=== PATIENT | male | born 1975 | race Caucasian/White ===

== ENCOUNTER 2016-09-16 15:45 | Emergency (ER) | payer SELFPAY ==
[~2016-09-16] VITALS: Ht 188 cm; Wt 90.0 kg
[~2016-09-16 15:45] MED LIST: HYDR-3533 PO; MMW SWISH-SPIT; PENI500T PO
[2016-09-16 15:47] VITALS: BP 133/86; PULSE 68; RESP 12; TEMP 98; O2SAT 97
[2016-09-16] MEDS ORDERED: LIDOCAINE HCL 1% 50 ML VIAL INFIL ONE (17:45)
--- NOTE | 2016-09-16 17:47 | PD ---
HPI Chief Complaint: Skin Problem Time Seen by Provider: 17:46 Travel History International Travel<30 days: No Contact w/Intl Traveler<30days: No Traveled to known affect area: No History of Present Illness HPI 40-year-old male presents to the emergency department for evaluation of left forearm abscess. Patient states that he thinks something bit him because he has a bump on his left forearm and a bump on his left hand. 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 States that the area on his forearm is gotten more red, painful and swollen. States that he tried to cut it open today himself but was unable to get anything out. He denies any fever, chills, nausea, vomiting, numbness or tingling, weakness, discharge or drainage from the site. Denies any IV drug use. No other complaints. PFSH Past Medical History Blood Disorders: No Cancer: No Cardiovascular Problems: Yes (VSD) Chest Pain: No Endocrine: No Genitourinary: No Immune Disorder: No Kidney Stones: No Musculoskeletal: Yes Neurologic: No Psychiatric: No Reproductive: No Respiratory: No Past Surgical History Other Surgery: No Social History Alcohol Use: No Tobacco Use: Yes (2 PKS A DAY) Substance Use: No Allergies-Medications (Allergen,Severity, Reaction): Coded Allergies: No Known Allergies (Verified , 09/16/16) Reported Meds & Prescriptions Reported Meds & Active Scripts Active Naproxen 500 Mg Tab 500 Mg PO BID 10 Days Keflex (Cephalexin) 500 Mg Cap 500 Mg PO Q6H 10 Days Bactrim DS (Sulfamethoxazole-Trimethoprim) 800-160 Mg Tab 1 Tab PO BID 10 Days Review of Systems Except as stated in HPI: all other systems reviewed are Neg Physical Exam Narrative GENERAL: Well-nourished and well-developed pleasant male patient in no acute distress who is nontoxic appearing. SKIN: Warm and dry. There is an erythematous painful lump to the left forearm approximately 5 x 5 cm that is fluctuant. There is a 1 x 1 cm lump to the dorsal left hand over first MCP with mild tenderness to palpation, no fluctuance. HEAD: Normocephalic and atraumatic. EYES: No injection, drainage, or hyphema noted. PERRLA. EOMI. ENT: No nasal drainage noted. Oropharynx is clear. NECK: Supple and the trachea is midline. CARDIOVASCULAR: Regular rate and rhythm. RESPIRATORY: Breath sounds are equal bilaterally with no accessory muscle use, wheezing, rhonchi, or crackles. MUSCULOSKELETAL: No obvious deformities, swelling, cyanosis, or ecchymosis is present throughout the upper and lower extremities. NEUROLOGICAL: Awake, alert, and oriented. Normal speech and gait. Cranial nerves are grossly intact. Data Data Last Documented VS Vital Signs Date Time Temp Pulse Resp B/P Pulse Ox O2 Delivery O2 Flow Rate FiO2 09/16/16 15:47 98.0 68 12 133/86 97 Orders Wound Culture And Gram Stain (09/16/16 17:45) Lidocaine 1% Inj (50 Ml) (Xylocaine 1% I (09/16/16 17:45) Tetanus/Diphtheria Tox Adult (Tetanus/Di (09/16/16 18:00) MDM Medical Decision Making Medical Screen Exam Complete: Yes Emergency Medical Condition: Yes Differential Diagnosis Abscess versus cyst versus insect bite Narrative Course 40-year-old male presents to the emergency department for evaluation of left forearm abscess. Patient is afebrile, vital signs are stable. I&D is performed , see procedure narrative for further details. Patient will be prescribed Bactrim and Keflex. Discussed proper wound care techniques and when to return to the emergency department. Patient verbalizes understanding and agreement with treatment plan. Procedures Procedure Narrative After the risks and benefits were discussed the following procedure was performed: INCISION AND DRAINAGE OF ABSCESS: The area was prepped and was sterilely draped. A subcutaneous wheal of 1 % Xylocaine with a total number 3 mL was used to anesthetize the area. The area was properly anesthetized. A number 11 scalpel was used to make a 1 -cm incision across the area of the abscess. Purulence was expelled. Cultures were obtained. The abscess was drained an irrigated with normal saline. Quarter inch iodoform packing was placed in the wound. Sterile dressing applied. Patient advised to have packing removed in two days. Diagnosis Primary Impression: Abscess of left forearm Patient Instructions: Abscess (ED), General Instructions Additional Instructions: Have packing removed in 2 days. Apply warm compresses to the area. Take medications as prescribed with food and a full glass of water. Follow-up with your Primary Care Physician. Return to the ED for any acute worsening of symptoms. Med/Other Pt SpecificInfo: Prescription(s) given Scripts Naproxen 500 Mg [id number] Mg PO BID 10 Days Ref 0 Prov:Ron Cerda MD 09/16/16 Cephalexin (Keflex)500 Mg [id number] Mg PO Q6H 10 Days Ref 0 Prov:Ron Cerda MD 09/16/16 Sulfamethoxazole-Trimethoprim (Bactrim DS)800-160 Mg Tab1 Tab PO BID 10 Days Ref 0 Prov:Ron Cerda MD 09/16/16 Disposition: 01 DISCHARGE HOME Condition: Stable Eleanor Jeter Sep 16, 2016 17:47
[2016-09-16] MEDS ORDERED: BACT800T5 PO (17:53)
[2016-09-16] MEDS ORDERED: NAPR500T PO (17:53)
[2016-09-16] MEDS ORDERED: CEPH-460 PO (17:53)
[2016-09-16] MEDS ORDERED: TETANUS/DIPHTHERIA TOXOID ADULT 0.5 ML VIAL IM ONE (18:00)
== END 2016-09-16 18:25 | disposition home or self-care (01) ==
LOC: NEPB 15:45
DX: L02.414 Cutaneous abscess of left upper limb (principal); Q21.0 Ventricular septal defect; F17.210 Nicotine dependence, cigarettes, uncomplicated; Z23 Encounter for immunization
CPT/HCPCS: 10061; 87070; 87205; 90471; 90714

== ENCOUNTER 2017-11-05 12:57 | Emergency (ER) | payer SELFPAY ==
[~2017-11-05 12:57] MED LIST changes: +BACT800T5 PO; +CEPH-460 PO; -HYDR-3533 PO; -MMW SWISH-SPIT; +NAPR500T2 PO; -PENI500T PO
[2017-11-05 13:09] VITALS: BP 120/71; PULSE 73; RESP 16; TEMP 98.2; O2SAT 98
[2017-11-05] MEDS ORDERED: LIDOCAINE 1%/EPINEPHrine 1:100,000 SOLN 20 ML VIAL INFIL ONE (16:00)
--- NOTE | 2017-11-05 16:00 | PD ---
HPI Chief Complaint: Skin Problem Time Seen by Provider: 15:49 Travel History International Travel<30 days: No Contact w/Intl Traveler<30days: No Traveled to known affect area: No History of Present Illness HPI Patient comes emergency department complaining of a painful lump on his left forearm that began 5 days ago. Patient reports it got progressively larger however yesterday he tried squeezing it and got some pus out that seemed to help some. Touching it makes it worse. Patient denies any fevers with this. Patient reports a distant history of IV drug use, but states he has not used in several years. Patient reports his tetanus shot is up-to-date. Patient denies anything like this in the past. Describes pain as a burning pressure-like pain without radiation. PFSH Past Medical History Blood Disorders: No Cancer: No Cardiovascular Problems: Yes (VSD) Chest Pain: No Endocrine: No Genitourinary: No Immune Disorder: No Kidney Stones: No Musculoskeletal: Yes Neurologic: No Psychiatric: No Reproductive: No Respiratory: No Past Surgical History Other Surgery: No Social History Alcohol Use: No Tobacco Use: Yes (2 PKS A DAY) Substance Use: No Allergies-Medications (Allergen,Severity, Reaction): Coded Allergies: No Known Allergies (Verified , 09/16/16) Reported Meds & Prescriptions Reported Meds & Active Scripts Active Keflex (Cephalexin) 500 Mg Cap 500 Mg PO Q8H Bactrim DS (Sulfamethoxazole-Trimethoprim) 800-160 Mg Tab 1 Tab PO BID Naproxen 500 Mg Tab 500 Mg PO BID 10 Days Keflex (Cephalexin) 500 Mg Cap 500 Mg PO Q6H 10 Days Bactrim DS (Sulfamethoxazole-Trimethoprim) 800-160 Mg Tab 1 Tab PO BID 10 Days Review of Systems Except as stated in HPI: all other systems reviewed are Neg Physical Exam Narrative GENERAL: Well-developed, well nourished, in no acute distress, and non-ill appearing. SKIN: Tender fluctuant skin abscess noted on left forearm. There is minimal surrounding erythematous. Is afebrile. There is no drainage. No crepitus. No streaking. HEAD: Atraumatic. Normocephalic. EYES: Pupils equal and round. EOMI. No scleral icterus. No injection or drainage. ENT: No nasal bleeding or discharge. Mucous membranes pink and moist. NECK: Trachea midline. Supple. No nuclear rigidity. RESPIRATORY: No accessory muscle use. No respiratory distress. MUSCULOSKELETAL: No obvious deformities. No clubbing. No cyanosis. No edema. Full range of motion. NEUROLOGICAL: Awake and alert. No obvious cranial nerve deficits. Motor grossly within normal limits. Normal speech. PSYCHIATRIC: Appropriate mood and affect; insight and judgment normal. Data Data Last Documented VS Vital Signs Date Time Temp Pulse Resp B/P (MAP) Pulse Ox O2 Delivery O2 Flow Rate FiO2 11/05/17 13:09 98.2 73 16 120/71 (87) 98 Orders Orders Wound Culture And Gram Stain (11/05/17 15:57) Lidocai-Epi 1%-1:100,000 Inj (Xylocaine- (11/05/17 16:00) Ed Discharge Order (11/05/17 16:16) Clindamycin Inj (Cleocin Inj) (11/05/17 16:30) MDM Medical Decision Making Medical Screen Exam Complete: Yes Emergency Medical Condition: Yes Differential Diagnosis Abscess, cellulitis, folliculitis, gangrene Narrative Course The patient has no evidence of significant cellulitis. There is no evidence of necrotizing fasciitis/ [place] at this time. The patient will be discharged on antibiotics. The patient was given signs and symptoms warnings for worsening infection, such as spreading of redness, increasing pain, and/or swelling, associated heat, or fever or feels worse, and instructed to return immediately if these signs or symptoms worsen. The patient is to return in 2 days for recheck. Sooner if worsens or as needed. The patient agrees with plan. Patient in no obvious distress upon re-evaluation. Patient was asked if they wanted to speak to my attending, which the patient did not wish to do at this time. Any questions/concerns in reference to patient diagnosis/condition discussed and clarified prior to patient's discharge. Reinforced sheer importance of close follow up with patient's primary physician or primary care clinic. Instructed patient to return to ED immediately, if symptoms return/ worsen. Patient showed understanding of above instructions. Further instructions and recommendations were detailed in discharge paperwork. Patient ambulated without difficulty out of ED at discharge. Procedures Procedure Narrative INCISION AND DRAINAGE OF ABSCESS: Verbal consent was obtained. The area was prepped. A subcutaneous wheal of 1% Xylocaine with epi with a total number 2 mL was used to anesthetize the area. The area was properly anesthetized. A number 11 scalpel was used to make a 1-cm incision across the area of the abscess. The abscess was drained and irrigated with normal saline. Quarter inch iodoform packing was placed in the wound. Sterile dressing applied by nurse. Patient tolerated procedure well. Patient advised to return here in 2 days to have packing removed and wound rechecked. Patient verbalized understanding. Diagnosis Primary Impression: Abscess of left forearm Referrals: [facility] Patient Instructions: Abscess (ED), Abscess Incision and Drainage (DC), General Instructions Additional Instructions: Follow-up with your primary care physician or return here in 2 days for recheck. Take all medication as prescribed. Apply warm compresses to affected area multiple times throughout the day to facilitate drainage. Return to the emergency department if symptoms get worse. Med/Other Pt SpecificInfo: Prescription(s) given Scripts Cephalexin (Keflex) 500 Mg Cap 500 MG PO Q8H for Infection, #30 CAP 0 Refills Prov: Saeed Mccray MD 11/05/17 Sulfamethoxazole-Trimethoprim (Bactrim DS) 800-160 Mg Tab 1 TAB PO BID for Infection, #20 TAB 0 Refills Prov: Saeed Mccray MD 11/05/17 Disposition: 01 DISCHARGE HOME Condition: Stable Reid Daugherty Nov 05, 2017 16:00
[2017-11-05] MEDS ORDERED: CEPH-460 PO (16:17)
[2017-11-05] MEDS ORDERED: BACT800T5 PO (16:17)
[2017-11-05] MEDS ORDERED: CLINDAMYCIN PHOS 600 MG/4 ML VIAL IM ONE (16:30)
== END 2017-11-05 17:18 | disposition home or self-care (01) ==
LOC: NEPK 12:57
DX: L02.414 Cutaneous abscess of left upper limb (principal); B95.62 Methicillin resistant Staphylococcus aureus infection as the cause of diseases classified elsewhere; F17.200 Nicotine dependence, unspecified, uncomplicated
CPT/HCPCS: 10061; 86403; 87070; 87186; 87205

== ENCOUNTER 2018-01-22 19:31 | Emergency (ER) | payer SELFPAY ==
[~2018-01-22] VITALS: Ht 188 cm; Wt 92.0 kg
[2018-01-22 19:46] VITALS: BP 146/86; PULSE 93; RESP 16; TEMP 98.4; O2SAT 97
== END 2018-01-22 22:14 | disposition left against medical advice (07) ==
LOC: NED 19:31
DX: M54.9 Dorsalgia, unspecified (principal)
CPT/HCPCS: 99281

== ENCOUNTER 2018-01-22 21:19 | Inpatient (IN) | payer SELFPAY ==
[~2018-01-22] VITALS: Ht 188 cm; Wt 88.5 kg
[~2018-01-22 21:19] MED LIST changes: +GADODIAMIDE PF 287 MG/ML 20 ML VIAL (for RAD MRI) IV PUSH ONE
[2018-01-22 21:29] VITALS: BP 135/81; PULSE 74; RESP 18; TEMP 98.5; O2SAT 97
[2018-01-22] MEDS ORDERED: HYDROmorphone HCL PF 2 MG/ML VIAL IV PUSH ONE (22:15)
--- NOTE | 2018-01-22 23:02 | PD ---
HPI Chief Complaint: Back/ Neck Pain or Injury Time Seen by Provider: 22:02 Travel History International Travel<30 days: No Contact w/Intl Traveler<30days: No Traveled to known affect area: No History of Present Illness HPI 42-year-old male here for evaluation of severe lower back pain that started about 10 days ago. 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 Pain has been progressively worsening, located over his lower back, radiates laterally bleed bilaterally. He denies urinary or bowel incontinence or retention. No saddle anesthesia. No lower extremity weakness. Pain is 8 out of 10, pressure/sharp/ shooting, worse with movements, slightly improved with rest. Patient has history of IV drug abuse, stating that he last used about a month ago. Chart review also shows that he had lumbar osteomyelitis in 2009. He denies fevers or chills. PFSH Past Medical History Blood Disorders: No Cancer: No Cardiovascular Problems: Yes (VSD) Chest Pain: No Endocrine: No Genitourinary: No Immune Disorder: No Kidney Stones: No Musculoskeletal: Yes (osteomyolitis) Neurologic: No Psychiatric: No Reproductive: No Respiratory: No ?: Not Past Surgical History Other Surgery: No Social History Alcohol Use: No Tobacco Use: Yes (2 PKS A DAY) Substance Use: No Allergies-Medications (Allergen,Severity, Reaction): Coded Allergies: No Known Allergies (Verified Adverse Reaction, Unknown, 01/22/18) Reported Meds & Prescriptions Reported Meds & Active Scripts Active Keflex (Cephalexin) 500 Mg Cap 500 Mg PO Q8H Bactrim DS (Sulfamethoxazole-Trimethoprim) 800-160 Mg Tab 1 Tab PO BID Naproxen 500 Mg Tab 500 Mg PO BID 10 Days Keflex (Cephalexin) 500 Mg Cap 500 Mg PO Q6H 10 Days Bactrim DS (Sulfamethoxazole-Trimethoprim) 800-160 Mg Tab 1 Tab PO BID 10 Days Review of Systems Except as stated in HPI: all other systems reviewed are Neg Physical Exam Narrative GENERAL: Well-developed, well-nourished, awake, alert, no apparent distress. SKIN: Focused skin assessment warm/dry. No rash. HEAD: Atraumatic. Normocephalic. EYES: Pupils equal and round. No scleral icterus. No injection or drainage. ENT: Mucous membranes pink and moist. NECK: Trachea midline. No JVD. No midline cervical spine step-off or tenderness. CARDIOVASCULAR: Regular rate and rhythm. No murmur. RESPIRATORY: No accessory muscle use. Clear to auscultation. Breath sounds equal bilaterally. GASTROINTESTINAL: Abdomen soft, non-tender, nondistended. MUSCULOSKELETAL: Significant lumbar and lower thoracic spine tenderness without step-off. No midline cervical spine step-off or tenderness. Normal range of motion in all joints and extremities with normal flexion and extension in bilateral lower extremities at the hip, knee, and ankle joints. NEUROLOGICAL: Awake and alert. No obvious cranial nerve deficits. Motor grossly within normal limits. Normal speech. No saddle anesthesia. Brisk patellar tendon reflexes bilaterally. PSYCHIATRIC: Appropriate mood and affect; insight and judgment normal. Data Data Last Documented VS Vital Signs Date Time Temp Pulse Resp B/P (MAP) Pulse Ox O2 Delivery O2 Flow Rate FiO2 01/23/18 00:56 71 16 131/81 (98) 96 Room Air 01/22/18 21:29 98.5 Orders Orders Sepsis Workup Initiated (01/22/18 ) Complete Blood Count With Diff (01/22/18 22:07) Comprehensive Metabolic Panel (01/22/18 22:07) Prothrombin Time / Inr (Pt) (01/22/18 22:07) Act Partial Throm Time (Ptt) (01/22/18 22:07) Lactic Acid Sepsis Protocol (01/22/18 22:07) Urinalysis - C+S If Indicated (01/22/18 22:07) Blood Culture (01/22/18 22:07) Ecg Monitoring (01/22/18 22:07) Iv Access Insert/Monitor (01/22/18 22:07) Oximetry (01/22/18 22:07) Hydromorphone Pf Inj (Dilaudid Pf Inj) (01/22/18 22:15) Drug Screen, Random Urine (01/22/18 22:07) Mri L Spine W&W/O Contrast (01/22/18 ) Mri T Spine W & W/O Contrast (01/22/18 ) Mri L Spine W&W/O Contrast (01/23/18 ) Labs Laboratory Tests Test 01/22/18 22:50 White Blood Count 9.5 TH/MM3 Red Blood Count 4.62 MIL/MM3 Hemoglobin 12.9 GM/DL Hematocrit 38.4 % Mean Corpuscular Volume 83.2 FL Mean Corpuscular Hemoglobin 27.9 PG Mean Corpuscular Hemoglobin Concent 33.6 % Red Cell Distribution Width 12.7 % Platelet Count 396 TH/MM3 Mean Platelet Volume 6.5 FL Neutrophils (%) (Auto) 77.0 % Lymphocytes (%) (Auto) 13.2 % Monocytes (%) (Auto) 8.5 % Eosinophils (%) (Auto) 0.7 % Basophils (%) (Auto) 0.6 % Neutrophils # (Auto) 7.2 TH/MM3 Lymphocytes # (Auto) 1.3 TH/MM3 Monocytes # (Auto) 0.8 TH/MM3 Eosinophils # (Auto) 0.1 TH/MM3 Basophils # (Auto) 0.1 TH/MM3 CBC Comment DIFF FINAL Differential Comment Prothrombin Time 10.1 SEC Prothromb Time International Ratio 1.0 RATIO Activated Partial Thromboplast Time 28.1 SEC Blood Urea Nitrogen 9 MG/DL Creatinine 0.79 MG/DL Random Glucose 89 MG/DL Total Protein 9.2 GM/DL Albumin 3.5 GM/DL Calcium Level 9.4 MG/DL Alkaline Phosphatase 81 U/L Aspartate Amino Transf (AST/SGOT) 35 U/L Alanine Aminotransferase (ALT/SGPT) 38 U/L Total Bilirubin 0.6 MG/DL Sodium Level 133 MEQ/L Potassium Level 4.0 MEQ/L Chloride Level 99 MEQ/L Carbon Dioxide Level 29.8 MEQ/L Anion Gap 4 MEQ/L Estimat Glomerular Filtration Rate 108 ML/MIN Lactic Acid Level 0.8 mmol/L MDM Medical Decision Making Medical Screen Exam Complete: Yes Emergency Medical Condition: Yes Differential Diagnosis Osteomyelitis, discitis, epidural abscess, lumbar strain Narrative Course Vital signs reviewed and are within normal limits. CBC: WBC 9.5, hemoglobin 12.3, hematocrit 38.4, platelets 396, neutrophils 77%. CMP is essentially unremarkable. Lactic acid 0.8. At approximately 1:45 AM at the end of my shift the patient was signed out to Dr. Rolle to follow-up with MRIs and disposition accordingly. Fer Dave MD January 22, 2018 23:02
[2018-01-22 23:11] VITALS: PULSE 77; O2SAT 95
[2018-01-22 23:19] LABS: AUTOMATED NEUTROPHIL # 7.2 TH/MM3 (1.8-7.7); BASOPHIL # 0.1 TH/MM3 (0-0.2); BASOPHIL % 0.6 % (0.0-2.0); EOSINOPHIL # 0.1 TH/MM3 (0-0.4); EOSINOPHIL % 0.7 % (0.0-4.0); HEMATOCRIT 38.4 % (39.0-51.0); HEMOGLOBIN 12.9 GM/DL (13.0-17.0); LYMPH % 13.2 % (9.0-44.0); LYMPHOCYTE # 1.3 TH/MM3 (1.0-4.8); MEAN CELL VOLUME 83.2 FL (80.0-100.0); MEAN CORPUSCULAR HEMOGLOBIN 27.9 PG (27.0-34.0); MEAN CORPUSCULAR HGB CONC 33.6 % (32.0-36.0); MEAN PLATELET VOLUME 6.5 FL (7.0-11.0); MONO % 8.5 % (0.0-8.0); MONOCYTE # 0.8 TH/MM3 (0-0.9); PLATELET COUNT 396 TH/MM3 (150-450); RED BLOOD COUNT 4.62 MIL/MM3 (4.50-5.90); RED CELL DISTRIBUTION WIDTH 12.7 % (11.6-17.2); WHITE BLOOD COUNT 9.5 TH/MM3 (4.0-11.0)
[2018-01-22 23:29] LABS: CHLORIDE 99 MEQ/L (98-107); SODIUM (NA) 133 MEQ/L (136-145)
[2018-01-22 23:32] LABS: CALCIUM 9.4 MG/DL (8.5-10.1)
[2018-01-22 23:33] LABS: ALBUMIN 3.5 GM/DL (3.4-5.0); BICARBONATE 29.8 MEQ/L (21.0-32.0); BLOOD UREA NITROGEN 9 MG/DL (7-18); GLUCOSE,RANDOM 89 MG/DL (74-106)
[2018-01-22 23:36] LABS: ALT (GPT) 38 U/L (12-78); AST (GOT) 35 U/L (15-37); CREATININE 0.79 MG/DL (0.60-1.30); GLOMERULAR FILTRATION RATE 108 ML/MIN (>89)
[2018-01-22 23:37] LABS: TOTAL BILIRUBIN ADULT 0.6 MG/DL (0.2-1.0)
[2018-01-22 23:38] LABS: TOTAL PROTEIN 9.2 GM/DL (6.4-8.2)
[2018-01-22 23:39] LABS: ALKALINE PHOSPHATASE 81 U/L (45-117)
[2018-01-23 00:15] LABS: PROTHROMBIN TIME - PATIENT 10.1 SEC (9.8-11.6)
[2018-01-23 00:56] VITALS: BP 131/81; PULSE 71; RESP 16; O2SAT 96
--- NOTE | 2018-01-23 01:43 | RADRPT ---
EXAM DATE: 01/23/2018 1:12 AM EDT AGE/SEX: 42 years / Male INDICATIONS: Osteomyelitis. Abnormal enhancement in the lumbar spine. CLINICAL DATA: This is the patient's initial encounter. Patient reports that signs and symptoms have been present for 2 days and indicates a pain score of 7/10. MEDICAL/SURGICAL HISTORY: None. None. COMPARISON: No prior [facility] exams available for comparison. TECHNIQUE: Multiplanar, multisequence MRI of the thoracic spine was performed without and with 17 ml Omniscan (gadodiamide) contrast as a single exam dose. FINDINGS: Vertebrae: Normal vertebral body height. Homogeneous marrow signal. Alignment: Normal. Discs: Well preserved and hydrated. No anterior extradural defects noted on the sagittal images. Cord: Normal position and configuration. Post Contrast: No abnormal areas of enhancement are seen in the cord, dural or paraspinal regions. T1-T2: The thecal sac has a normal diameter. No evidence of disc bulge or protrusion. T2-T3: The thecal sac has a normal diameter. No evidence of disc bulge or protrusion. T3-T4: The thecal sac has a normal diameter. No evidence of disc bulge or protrusion. T4-T5: The thecal sac has a normal diameter. No evidence of disc bulge or protrusion. T5-T6: The thecal sac has a normal diameter. No evidence of disc bulge or protrusion. T6-T7: The thecal sac has a normal diameter. No evidence of disc bulge or protrusion. T7-T8: The thecal sac has a normal diameter. No evidence of disc bulge or protrusion. T8-T9: There is a small posterior central disc protrusion measuring approximately 4 to 5 mm across t he base and 1 to 2 mm in AP diameter. There is slight flattening of the anterior thecal sac. T9-T10: The thecal sac has a normal diameter. No evidence of disc bulge or protrusion. T10-T11: The thecal sac has a normal diameter. No evidence of disc bulge or protrusion. T11-T12: The thecal sac has a normal diameter. No evidence of disc bulge or protrusion. T12-L1: The thecal sac has a normal diameter. No evidence of disc bulge or protrusion. CONCLUSION: 1. Small posterior central disc protrusion at the T8-9 level with slight flattening of the anterior thecal sac. 2. The study is otherwise unremarkable with no abnormal enhancement or evidence to suggest osteomyel itis in the thoracic spine. Electronically signed by: Andres James MD 01/23/2018 1:41 AM EDT
--- NOTE | 2018-01-23 02:30 | RADRPT ---
EXAM DATE: 01/23/2018 2:12 AM EDT AGE/SEX: 42 years / Male INDICATIONS: Osteomyelitis. CLINICAL DATA: This is the patient's initial encounter. Patient reports that signs and symptoms have been present for 3 days and indicates a pain score of 7/10. MEDICAL/SURGICAL HISTORY: None. None. COMPARISON: . TECHNIQUE: Multiplanar, multisequence MRI examination of the lumbar spine was performed without and with 17 ml Omniscan (gadodiamide) contrast as a single exam dose. FINDINGS: The most caudal-appearing lumbar vertebra is numbered as L5. VERTEBRA: There is marrow edema involving the inferior portion of the L1 vertebral body as well as t he entire L2 and L3 vertebral bodies. Normal alignment. Discs: There is enhancement of portions of the disc space at the L2-3 level. There is no visualized disc space at the L1-2 level. CONUS: Normal level and configuration. POST-CONTRAST: There is abnormal intense enhancement involving the inferior portion of the L1 verteb ral body as well as the entire L2 and L3 vertebral bodies.. There is abnormal enhancement along the a nterior and lateral epidural space at the L2 and L3 levels as well as along the posterior disc margin . There is also abnormal enhancement involving the L3 left pedicle. T12-L1: The thecal sac has a normal diameter. No evidence of disc bulge or protrusion. The neural foramina are patent bilaterally. L1-L2: The thecal sac has a normal diameter. No evidence of disc bulge or protrusion. No residual disc material is identified. The neural foramina are patent bilaterally. L2-L3: The thecal sac has a normal diameter. No evidence of disc bulge or protrusion. The neural foramina are patent bilaterally. L3-L4: Abnormal enhancement involving L3 and L4 vertebral bodies with surrounding soft tissue swell ing and enhancement in the paravertebral region. There is enhancement along the anterior epidural spa ce and along the lateral aspects of the thecal sac.. L4-L5: The thecal sac has a normal diameter. No evidence of disc bulge or protrusion. The neural foramina are patent bilaterally. L5-S1: The thecal sac has a normal diameter. No evidence of disc bulge or protrusion. The neural foramina are patent bilaterally. CONCLUSION: 1. Marrow edema and abnormal enhancement involving the inferior portion of the L1 vertebral body as well as the L2 and L3 vertebral bodies most characteristic of osteomyelitis. There is also enhancemen t portion of the L2-3 disc space consistent with discitis. 2. Abnormal enhancement along the anterior and lateral epidural space at the L2 and L3 levels as wel l as along the posterior disc margin at L2-3 characteristic of a small anterior epidural abscess. 3. 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 Electronically signed by: Andres James MD 01/23/2018 2:29 AM EDT
--- NOTE | 2018-01-23 02:34 | PD ---
Physical Exam Date Seen by Provider: January 23, 2018 Time Seen by Provider: 02:33 Narrative 42-year-old male came to the emergency room with history of lower back pain. Patient has history of IV drug abuse and discitis in the past. He was seen by the previous ER physician. Please refer to his history and physical for further details. Signout was to follow-up on the MRI of the thoracic and lumbar spine. Thoracic spine was read by the radiologist to be negative. However the lumbar spine is suggestive of osteomyelitis, discitis and a small anterior epidural abscess. Based on this I have ordered IV vancomycin and Zosyn. Awaiting for the hospitalist to call back. Patient will have to be transferred to the main hospital so that this can be treated and seen by neurosurgeon. Data Data Last Documented VS Vital Signs Date Time Temp Pulse Resp B/P (MAP) Pulse Ox O2 Delivery O2 Flow Rate FiO2 01/23/18 00:56 71 16 131/81 (98) 96 Room Air 01/22/18 21:29 98.5 Orders Orders Sepsis Workup Initiated (01/22/18 ) Complete Blood Count With Diff (01/22/18 22:07) Comprehensive Metabolic Panel (01/22/18 22:07) Prothrombin Time / Inr (Pt) (01/22/18 22:07) Act Partial Throm Time (Ptt) (01/22/18 22:07) Lactic Acid Sepsis Protocol (01/22/18 22:07) Urinalysis - C+S If Indicated (01/22/18 22:07) Blood Culture (01/22/18 22:07) Ecg Monitoring (01/22/18 22:07) Iv Access Insert/Monitor (01/22/18 22:07) Oximetry (01/22/18 22:07) Hydromorphone Pf Inj (Dilaudid Pf Inj) (01/22/18 22:15) Drug Screen, Random Urine (01/22/18 22:07) Mri T Spine W & W/O Contrast (01/22/18 ) Mri L Spine W&W/O Contrast (01/23/18 ) Gadodiamide Pf Inj (Omniscan Pf Inj) (01/22/18 00:25) Blood Culture (01/23/18 02:32) Piperacil-Tazo 4.5 Gm Premix (Zosyn 4.5 (01/23/18 02:45) Vancomycin Inj (Vancomycin Inj) (01/23/18 02:45) Ketorolac Inj (Toradol Inj) (01/23/18 02:45) Admit Order (Ed Use Only) (01/23/18 02:44) Admit To Inpatient (01/23/18 ) Vital Signs (Adult) Q4H (01/23/18 02:42) Neuro Checks Q4H (01/23/18 02:42) Activity Oob With Assistance (01/23/18 02:42) Diet Heart Healthy (01/23/18 Breakfast) Sodium Chloride 0.9% Flush (Ns Flush) (01/23/18 02:45) Sodium Chloride 0.9% Flush (Ns Flush) (01/23/18 09:00) Acetaminophen (Tylenol) (01/23/18 02:45) Pt Request For Service (01/23/18 02:42) Heparin Inj (Heparin Inj) (01/23/18 03:00) Naloxone Inj (Narcan Inj) (01/23/18 02:45) Magnesium Hydroxide Liq (Milk Of Magnesi (01/23/18 02:45) Sennosides (Senokot) (01/23/18 02:45) Bisacodyl Supp (Dulcolax Supp) (01/23/18 02:45) Lactulose Liq (Lactulose Liq) (01/23/18 02:45) Inpatient Certification (01/23/18 ) Vancomycin Consult Pharmacy (Vancomycin (01/23/18 02:45) Piperacil-Tazo 4.5 Gm Premix (Zosyn 4.5 (01/23/18 11:00) Consult Neurosurgery (01/23/18 ) Consult Infectious Disease (01/23/18 ) Westergren Sedimentation Rate (01/23/18 02:42) Labs Laboratory Tests Test 01/22/18 22:50 White Blood Count 9.5 TH/MM3 Red Blood Count 4.62 MIL/MM3 Hemoglobin 12.9 GM/DL Hematocrit 38.4 % Mean Corpuscular Volume 83.2 FL Mean Corpuscular Hemoglobin 27.9 PG Mean Corpuscular Hemoglobin Concent 33.6 % Red Cell Distribution Width 12.7 % Platelet Count 396 TH/MM3 Mean Platelet Volume 6.5 FL Neutrophils (%) (Auto) 77.0 % Lymphocytes (%) (Auto) 13.2 % Monocytes (%) (Auto) 8.5 % Eosinophils (%) (Auto) 0.7 % Basophils (%) (Auto) 0.6 % Neutrophils # (Auto) 7.2 TH/MM3 Lymphocytes # (Auto) 1.3 TH/MM3 Monocytes # (Auto) 0.8 TH/MM3 Eosinophils # (Auto) 0.1 TH/MM3 Basophils # (Auto) 0.1 TH/MM3 CBC Comment DIFF FINAL Differential Comment Prothrombin Time 10.1 SEC Prothromb Time International Ratio 1.0 RATIO Activated Partial Thromboplast Time 28.1 SEC Blood Urea Nitrogen 9 MG/DL Creatinine 0.79 MG/DL Random Glucose 89 MG/DL Total Protein 9.2 GM/DL Albumin 3.5 GM/DL Calcium Level 9.4 MG/DL Alkaline Phosphatase 81 U/L Aspartate Amino Transf (AST/SGOT) 35 U/L Alanine Aminotransferase (ALT/SGPT) 38 U/L Total Bilirubin 0.6 MG/DL Sodium Level 133 MEQ/L Potassium Level 4.0 MEQ/L Chloride Level 99 MEQ/L Carbon Dioxide Level 29.8 MEQ/L Anion Gap 4 MEQ/L Estimat Glomerular Filtration Rate 108 ML/MIN Lactic Acid Level 0.8 mmol/L MDM Supervised Visit with SONAL: No Diagnosis Primary Impression: Discitis Qualified Codes: M46.46 - Discitis, unspecified, lumbar region Additional Impressions: Osteomyelitis of lumbar spine Epidural abscess Admitting Information Admitting Physician Requests: it Susanna Rolle MD January 23, 2018 02:34
[2018-01-23] MEDS ORDERED: SENNOSIDES 8.6 MG TAB PO PRN (02:45)
[2018-01-23] MEDS ORDERED: NALOXONE HCL 0.4 MG/ML AMP IV PUSH PRN (02:45)
[2018-01-23] MEDS ORDERED: KETOROLAC TROMETHAMINE 30 MG/ML (IVP) VIAL IV PUSH ONE (02:45)
[2018-01-23] MEDS ORDERED: Vancomycin Consult Pharmacy 1 EA OTHER SCH (02:45)
[2018-01-23] MEDS ORDERED: SODIUM CHLORIDE 0.9% FLUSH 10 ML FLUSH IV FLUSH PRN (02:45)
[2018-01-23] MEDS ORDERED: VANCOMYCIN INJ 1,000 MG in SODIUM CHLOR 0.9% 250 ML INJ 250 ML IV ONE (02:45)
[2018-01-23] MEDS ORDERED: PIPERACIL-TAZO 4.5 GM PREMIX 100 ML IV ONE (02:45)
[2018-01-23] MEDS ORDERED: ACETAMINOPHEN 325 MG TAB PO PRN (02:45)
[2018-01-23] MEDS ORDERED: BISACODYL 10 MG SUPP RECTAL PRN (02:45)
[2018-01-23] MEDS ORDERED: LACTULOSE SYRUP 20 GM/30 ML CUP PO PRN (02:45)
[2018-01-23] MEDS ORDERED: MAGNESIUM HYDROXIDE SUSP 30 ML CUP PO PRN (02:45)
[2018-01-23] MEDS: HEPARIN SODIUM - SQ 10,000 UNITS/ML VIAL SQ SCH ×2 (03:17→15:00)
[2018-01-23 03:22] VITALS: BP 119/70; PULSE 65; RESP 16; TEMP 98.4; O2SAT 96
[2018-01-23 04:59] LABS: BILIRUBIN, URINE NEG (NEG); BLOOD, URINE NEG (NEG); GLUCOSE,URINE NEG (NEG); KETONE, URINE NEG (NEG); NITRITE,URINE NEG (NEG); URINE COLOR YELLOW (YELLW/STRAW); URINE LEUKOCYTE ESTERASE NEG (NEG)
[2018-01-23 05:04] LABS: MUCUS URINE MOD /lpf (OCC); RBC, URINE 0-3 /hpf (0-3); SQUAMOUS EPITHELIAL CELL URINE 0-5 /hpf (0-5); WBC, URINE 0-2 /hpf (0-5)
[2018-01-23 07:17] VITALS: BP 147/75; PULSE 69; RESP 17; TEMP 98.9; O2SAT 96
--- NOTE | 2018-01-23 08:58 | HHI.HP ---
[facility] Service [facility] Primary Care Physician No Primary Care Physician Admission Diagnosis Lumbar osteomyelitis, discitis and epidural abscess Diagnoses: (1) Tobacco abuse (2) IVDU (intravenous drug user) (3) Osteomyelitis of lumbar spine (4) Epidural abscess (5) Discitis Chief Complaint: Back pain Travel History International Travel<30 Days: No Contact w/Intl Traveler <30 Da: No Traveled to Known Affected Are: No History of Present Illness 42-year-old male with past medical history of previously treated lumbar spine osteomyelitis dating back 2009, current IVDU presented to the ED for worsening low back pain 4 weeks duration rated over 10 in intensity worse with standing and bending however without any bladder or bowel dysfunction. Patient also denies any febrile episode. 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 Otherwise patient denies any reported GI bleed, chest pain or shortness of breath. Review of Systems Except as stated in HPI: all other systems reviewed are Neg Past Family Social History Past Medical History Cardiovascular Problems: Yes (VSD) Musculoskeletal: Yes (osteomyolitis) Past Surgical History Other Surgery: No Reported Medications Keflex (Cephalexin) 500 Mg Cap 500 Mg PO Q8H Bactrim DS (Sulfamethoxazole-Trimethoprim) 800-160 Mg Tab 1 Tab PO BID Naproxen 500 Mg Tab 500 Mg PO BID 10 Days Keflex (Cephalexin) 500 Mg Cap 500 Mg PO Q6H 10 Days Bactrim DS (Sulfamethoxazole-Trimethoprim) 800-160 Mg Tab 1 Tab PO BID 10 Days Allergies: Coded Allergies: No Known Allergies (Verified Allergy, Unknown, 01/23/18) Family History Denies any family history of heart disease, diabetes, hypertension Social History Alcohol Use: No Tobacco Use: Yes (2 PKS A DAY) Substance Use: Heroine, methamphetamine Physical Exam Vital Signs Vital Signs Date Time Temp Pulse Resp B/P (MAP) Pulse Ox O2 Delivery O2 Flow Rate FiO2 01/23/18 07:17 96 Room Air 01/23/18 07:17 98.9 69 17 147/75 (99) 96 Room Air 01/23/18 03:22 98.4 65 16 119/70 (86) 96 Room Air 01/23/18 00:56 71 16 131/81 (98) 96 Room Air 01/22/18 23:11 77 95 Room Air 01/22/18 21:29 98.5 74 18 135/81 (99) 97 Physical Exam GENERAL: This is a well-nourished, well-developed patient, in no apparent distress. SKIN: No rashes, ecchymoses or lesions. Cool and dry. HEAD: Atraumatic. Normocephalic. No temporal or scalp tenderness. EYES: Pupils equal round and reactive. Extraocular motions intact. No scleral icterus. No injection or drainage. ENT: Nose without bleeding, purulent drainage or septal hematoma. Throat without erythema, tonsillar hypertrophy or exudate. Uvula midline. Airway patent. NECK: Trachea midline. No JVD or lymphadenopathy. Supple, nontender, no meningeal signs. CARDIOVASCULAR: Regular rate and rhythm without murmurs, gallops, or rubs. RESPIRATORY: Clear to auscultation. Breath sounds equal bilaterally. No wheezes , rales, or rhonchi. GASTROINTESTINAL: Abdomen soft, non-tender, nondistended. No hepato-splenomegaly , or palpable masses. No guarding. MUSCULOSKELETAL: Extremities without clubbing, cyanosis, or edema. No joint tenderness, effusion, or edema noted. No calf tenderness. Negative Homans sign bilaterally. NEUROLOGICAL: Awake and alert. Cranial nerves II through XII intact. Motor and sensory grossly within normal limits. Five out of 5 muscle strength in all muscle groups. Normal speech. Laboratory Laboratory Tests Test 01/22/18 22:50 01/23/18 04:25 White Blood Count 9.5 Red Blood Count 4.62 Hemoglobin 12.9 Hematocrit 38.4 Mean Corpuscular Volume 83.2 Mean Corpuscular Hemoglobin 27.9 Mean Corpuscular Hemoglobin Concent 33.6 Red Cell Distribution Width 12.7 Platelet Count 396 Mean Platelet Volume 6.5 Neutrophils (%) (Auto) 77.0 Lymphocytes (%) (Auto) 13.2 Monocytes (%) (Auto) 8.5 Eosinophils (%) (Auto) 0.7 Basophils (%) (Auto) 0.6 Neutrophils # (Auto) 7.2 Lymphocytes # (Auto) 1.3 Monocytes # (Auto) 0.8 Eosinophils # (Auto) 0.1 Basophils # (Auto) 0.1 CBC Comment DIFF FINAL Differential Comment Prothrombin Time 10.1 Prothromb Time International Ratio 1.0 Activated Partial Thromboplast Time 28.1 Blood Urea Nitrogen 9 Creatinine 0.79 Random Glucose 89 Total Protein 9.2 Albumin 3.5 Calcium Level 9.4 Alkaline Phosphatase 81 Aspartate Amino Transf (AST/SGOT) 35 Alanine Aminotransferase (ALT/SGPT) 38 Total Bilirubin 0.6 Sodium Level 133 Potassium Level 4.0 Chloride Level 99 Carbon Dioxide Level 29.8 Anion Gap 4 Estimat Glomerular Filtration Rate 108 Lactic Acid Level 0.8 Erythrocyte Sedimentation Rate 40 Urine Color YELLOW Urine Turbidity CLEAR Urine pH 6.0 Urine Specific [place] GREATER/EQUAL 1.030 Urine Protein 30 Urine Glucose (UA) NEG Urine Ketones NEG Urine Occult Blood NEG Urine Nitrite NEG Urine Bilirubin NEG Urine Urobilinogen 1.0 Urine Leukocyte Esterase NEG Urine RBC 0-3 Urine WBC 0-2 Urine Squamous Epithelial Cells 0-5 Urine Mucus MOD Microscopic Urinalysis Comment CULT NOT INDICATED Urine Opiates Screen POS Urine Barbiturates Screen NEG Urine Amphetamines Screen POS Urine Benzodiazepines Screen NEG Urine Cocaine Screen NEG Urine Cannabinoids Screen NEG Date/Time Source Procedure Growth Status 01/22/18 22:50 Blood Peripheral Aerobic Blood Culture Pending Received 01/22/18 22:50 Blood Peripheral Anaerobic Blood Culture Pending Received Result Diagram: 01/22/18 2250 01/22/18 2250 Imaging Last Impressions Lumbar Spine MRI 01/23/18 0000 Signed Impressions: CONCLUSION: 1. Marrow edema and abnormal enhancement involving the inferior portion of the L1 vertebral body as well as the L2 and L3 vertebral bodies most characteristi c of osteomyelitis. There is also enhancement portion of the L2-3 disc space co nsistent with discitis. 2. Abnormal enhancement along the anterior and lateral epidural space at the L 2 and L3 levels as well as along the posterior disc margin at L2-3 characterist ic of a small anterior epidural abscess. 3. 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 Thoracic Spine MRI 01/22/18 0000 Signed Impressions: CONCLUSION: 1. Small posterior central disc protrusion at the T8-9 level with slight darius ening of the anterior thecal sac. 2. The study is otherwise unremarkable with no abnormal enhancement or evidenc e to suggest osteomyelitis in the thoracic spine. Septic Shock Reassessment Septic shock perfusion: reassessment completed Caprini VTE Risk Assessment Caprini VTE Risk Assessment: No/Low Risk (score <= 1) Caprini Risk Assessment Model Point Value = 1 Point Value = 2 Point Value = 3 Point Value = 5 Age 41-60 Minor surgery BMI > 25 kg/m2 Swollen legs Varicose veins or History of unexplained or recurrent spontaneous Oral contraceptives or hormone replacement Sepsis (< 1 month) Serious lung disease, including pneumonia (< 1 month) Abnormal pulmonary function Acute myocardial infarction Congestive heart failure (< 1 month) History of inflammatory bowel disease Medical patient at bed rest Age 61-74 Arthroscopic surgery Major open surgery (> 45 min) Laparoscopic surgery (> 45 min) Malignancy Confined to bed (> 72 hours) Immobilizing plaster cast Central venous access Age >= 75 History of VTE Family history of VTE Factor V Leiden Prothrombin [id number] Lupus anticoagulant Anticardiolipin antibodies Elevated serum homocysteine Heparin-induced thrombocytopenia Other congenital or acquired thrombophilia Stroke (< 1 month) Elective arthroplasty Hip, pelvis, or leg fracture Acute spinal cord injury (< 1 month) Prophylaxis Regimen Total Risk Factor Score Risk Level Prophylaxis Regimen 0-1 Low Early ambulation 2 Moderate Order ONE of the following: *Sequential Compression Device (SCD) *Heparin 5000 units SQ BID 3-4 Higher Order ONE of the following medications: *Heparin 5000 units SQ TID *Enoxaparin/Lovenox 40 mg SQ daily (WT < 150 kg, CrCl > 30 mL/min) *Enoxaparin/Lovenox 30 mg SQ daily (WT < 150 kg, CrCl > 10-29 mL/min) *Enoxaparin/Lovenox 30 mg SQ BID (WT < 150 kg, CrCl > 30 mL/min) AND/OR *Sequential Compression Device (SCD) 5 or more Highest Order ONE of the following medications: *Heparin 5000 units SQ TID (Preferred with Epidurals) *Enoxaparin/Lovenox 40 mg SQ daily (WT < 150 kg, CrCl > 30 mL/min) *Enoxaparin/Lovenox 30 mg SQ daily (WT < 150 kg, CrCl > 10-29 mL/min) *Enoxaparin/Lovenox 30 mg SQ BID (WT < 150 kg, CrCl > 30 mL/min) AND *Sequential Compression Device (SCD) Assessment and Plan Problem List: (1) Osteomyelitis of lumbar spine ICD Code: M46.26 - Osteomyelitis of vertebra, lumbar region Status: Acute (2) Discitis ICD Code: M46.40 - Discitis, unspecified, site unspecified Status: Acute (3) Epidural abscess ICD Code: G06.2 - Extradural and subdural abscess, unspecified Status: Acute (4) Tobacco abuse ICD Code: Z72.0 - Tobacco use (5) IVDU (intravenous drug user) ICD Code: F19.90 - Other psychoactive substance use, unspecified, uncomplicated Assessment and Plan 42-year-old man with Osteomyelitis of lumbar spine Epidural abscess Lumbar spine MRI noted and reviewed by me with finding of osteomyelitis and epidural abscess Neurosurgery consultation pending for evaluation for possible incision and drainage of epidural abscess Infectious disease specialist consultation pending Status post Zosyn and vancomycin IV 1 in ED, continue with antibiotics pending culture reports Secondary to patient history of IVDU, will check 2D echo to rule out endocarditis despite the absence of leukocytosis or febrile episode Will transfer patient to [facility] Tobacco abuse Tobacco counseling cessation provided Start nicotine patch IVDU Counseling cessation provided Check 2D echo to rule out endocarditis Normochromic normocytic anemia of chronic disease H&H stable, continue to monitor CBC DVT prophylaxis: Heparin Code Status Full code Discussed Condition With Patient Physician Certification 2 Midnight Certification Type: Admission for Inpatient Services Order for Inpatient Services The services are ordered in accordance with Medicare regulations or non- Medicare payer requirements, as applicable. In the case of services not specified as inpatient-only, they are appropriately provided as inpatient services in accordance with the 2-midnight benchmark. Estimated LOS (days): 2 days is the estimated time the patient will need to remain in the hospital, assuming treatment plan goals are met and no additional complications. Post-Hospital Plan: Not yet determined Problem Qualifiers (1) Discitis: Qualified Codes: M46.46 - Discitis, unspecified, lumbar region Govind Titus MD January 23, 2018 08:58
[2018-01-23] MEDS: SODIUM CHLORIDE 0.9% FLUSH 10 ML FLUSH IV FLUSH SCH ×2 (09:00→21:15)
[2018-01-23] MEDS ORDERED: RESP: ALBUTEROL 2.5 MG/IPRATROPIUM 0.5 MG NEB (PRN) NEB (09:15)
[2018-01-23] MEDS ORDERED: PIPERACIL-TAZO 4.5 GM PREMIX 100 ML IV SCH (11:00)
[2018-01-23 11:31] VITALS: BP 132/75; PULSE 62; RESP 20; O2SAT 97
[2018-01-23] MEDS ORDERED: VANCOMYCIN INJ 1,900 MG in SODIUM CHLORID 0.9% 500 ML INJ 500 ML IV SCH (12:00)
--- NOTE | 2018-01-23 13:28 | PD.CONS ---
History of Present Illness Service Infectious disease Consult Requested By Dr Luis Titus Reason for Consult Evaluate patient with discitis Primary Care Physician No Primary Care Physician Diagnoses: History of Present Illness Patient seen and examined. Records reviewed. Patient is a 42-year-old male, presented to the hospital with worsening low back pain which has been going on for about 4 weeks. He denies any bladder or bladder bowel dysfunction. He has not had any fever chills or sweats. Denies any respiratory complaint. Patient has known active IV drug use. He has a history of L1-L2 Serratia discitis for which he received a course of antibiotic therapy. He had another admission in 2010, and had an MRI again at that time which showed improvement in his findings. When he came to the hospital this time, MRI of the thoracic spine was done, and it is again showing enhancement of L1 and now as well as L2 and L3. He has not been febrile. His sed rate is elevated. Infectious disease consultation has been requested to evaluate the patient. Review of Systems Constitutional: DENIES: Fever, Chills, Night Sweats Eyes: DENIES: Eye pain Ears, nose, mouth, throat: DENIES: Nasal discharge, Oral lesions, Throat pain, Ear Pain, Sinus Pain Respiratory: DENIES: Cough, Shortness of breath Cardiovascular: DENIES: Chest pain, Palpitations, Syncope, Dyspnea on Exertion Gastrointestinal: DENIES: Abdominal pain, Diarrhea, Nausea, Vomiting Genitourinary: DENIES: Urgency, Hematuria, Dysuria Musculoskeletal: COMPLAINS OF: Back pain, DENIES: Joint pain, Joint Swelling Integumentary: DENIES: Pruritus, Rash Hematologic/lymphatic: DENIES: Lymphadenopathy Neurologic: DENIES: Localized weakness Psychiatric: DENIES: Hallucinations Past Family Social History Allergies: Coded Allergies: No Known Allergies (Verified Allergy, Unknown, 01/23/18) Past Medical History L1L2 Serratia discitis Rx in 2009 Hx VSD Past Surgical History None Active Ordered Medications Current Medications Medications (Trade) Dose Ordered Sig/Rosanna Route Start Time Stop Time Status Last Admin (NS Flush) 2 ml UNSCH PRN IV FLUSH 01/23/18 02:45 (NS Flush) 2 ml BID IV FLUSH 01/23/18 09:00 01/23/18 09:00 (Tylenol) 650 mg Q4H PRN PO 01/23/18 02:45 (Heparin Inj) 5,000 units Q12H SQ 5/24/18 03:00 01/23/18 03:17 (Narcan Inj) 0.4 mg UNSCH PRN IV PUSH 01/23/18 02:45 (Milk Of Magnesia Liq) 30 ml Q12H PRN PO 01/23/18 02:45 (Senokot) 17.2 mg Q12H PRN PO 01/23/18 02:45 (Dulcolax Supp) 10 mg DAILY PRN RECTAL 01/23/18 02:45 (Lactulose Liq) 30 ml DAILY PRN PO 01/23/18 02:45 Pharmacy Profile Note 0 ml @ 0 mls/hr UNSCH OTHER 01/23/18 02:45 Piperacillin Sod/ Tazobactam Sod 100 ml @ 200 mls/hr Q8H IV 01/23/18 11:00 01/23/18 11:29 Vancomycin HCl 1900 mg/Sodium Chloride 519 ml @ 250 mls/hr Q12H IV 01/23/18 12:00 01/23/18 12:37 ([facility] Ordered Lab Info) SPECIFIC LAB TO BE ... ONCE ONCE .XX 01/25/18 11:45 01/25/18 11:46 (Habitrol 21 Mg Patch.24 Hr) 1 patch DAILY T-DERMAL 01/24/18 09:00 Miscellaneous Information 1 DAILY T-DERMAL 01/24/18 09:00 (Duoneb Neb) 1 ampule Q2HR NEB PRN NEB 01/23/18 09:15 Family History Non-contributory Social History Smokes 1/2 ppd No ETOH abuse IVDU - methamphetamine, heroine Physical Exam Vital Signs Vital Signs Date Time Temp Pulse Resp B/P (MAP) Pulse Ox O2 Delivery O2 Flow Rate FiO2 01/23/18 11:31 62 20 132/75 (94) 97 01/23/18 07:17 96 Room Air 01/23/18 07:17 98.9 69 17 147/75 (99) 96 Room Air 01/23/18 03:22 98.4 65 16 119/70 (86) 96 Room Air 01/23/18 00:56 71 16 131/81 (98) 96 Room Air 01/22/18 23:11 77 95 Room Air 01/22/18 21:29 98.5 74 18 135/81 (99) 97 Physical Exam GENERAL: Patient is a well-nourished, well-developed male, awake and alert, not in respiratory distress. SKIN: Warm and dry. No generalized rash, no ecchymoses and no evidence of embolic lesions. HEAD: Atraumatic. Normocephalic. No temporal wasting, or tenderness. EYES: [place] conjunctiva. No petechia or hemorrhage. Pupils equal, round and reactive to light. Extraocular movements full and intact. No scleral icterus. No injection or drainage. EARS, NOSE AND THROAT: Nose without bleeding or purulent nasal discharge. No sinus tenderness. Mucous membranes pink and moist. No oral lesions noted. No exudate. No oral thrush. NECK: Trachea midline. Supple and not tender, no meningeal signs CARDIOVASCULAR: Regular rate and rhythm. Has systolic murmur apex. RESPIRATORY: Clear to auscultation. Breath sounds equal bilaterally. No rales , wheezing or rhonchi ABDOMEN: Soft, non-tender, nondistended. Bowel sounds present and normoactive. No guarding. No rebound. No organomegaly. EXTREMITIES: No clubbing, cyanosis, or edema.No joint effusion, has good ROM. No calf tenderness. Well perfused and warm. NEUROLOGICAL: Awake and alert. Cranial nerves grossly intact. Motor grossly within normal limits. PSYCHIATRIC: Normal affect, calm and cooperative. LINE: No evidence of infection Laboratory Laboratory Tests Test 01/22/18 22:50 01/23/18 04:25 White Blood Count 9.5 Red Blood Count 4.62 Hemoglobin 12.9 Hematocrit 38.4 Mean Corpuscular Volume 83.2 Mean Corpuscular Hemoglobin 27.9 Mean Corpuscular Hemoglobin Concent 33.6 Red Cell Distribution Width 12.7 Platelet Count 396 Mean Platelet Volume 6.5 Neutrophils (%) (Auto) 77.0 Lymphocytes (%) (Auto) 13.2 Monocytes (%) (Auto) 8.5 Eosinophils (%) (Auto) 0.7 Basophils (%) (Auto) 0.6 Neutrophils # (Auto) 7.2 Lymphocytes # (Auto) 1.3 Monocytes # (Auto) 0.8 Eosinophils # (Auto) 0.1 Basophils # (Auto) 0.1 CBC Comment DIFF FINAL Differential Comment Prothrombin Time 10.1 Prothromb Time International Ratio 1.0 Activated Partial Thromboplast Time 28.1 Blood Urea Nitrogen 9 Creatinine 0.79 Random Glucose 89 Total Protein 9.2 Albumin 3.5 Calcium Level 9.4 Alkaline Phosphatase 81 Aspartate Amino Transf (AST/SGOT) 35 Alanine Aminotransferase (ALT/SGPT) 38 Total Bilirubin 0.6 Sodium Level 133 Potassium Level 4.0 Chloride Level 99 Carbon Dioxide Level 29.8 Anion Gap 4 Estimat Glomerular Filtration Rate 108 Lactic Acid Level 0.8 Erythrocyte Sedimentation Rate 40 Urine Color YELLOW Urine Turbidity CLEAR Urine pH 6.0 Urine Specific [place] GREATER/EQUAL 1.030 Urine Protein 30 Urine Glucose (UA) NEG Urine Ketones NEG Urine Occult Blood NEG Urine Nitrite NEG Urine Bilirubin NEG Urine Urobilinogen 1.0 Urine Leukocyte Esterase NEG Urine RBC 0-3 Urine WBC 0-2 Urine Squamous Epithelial Cells 0-5 Urine Mucus MOD Microscopic Urinalysis Comment CULT NOT INDICATED Urine Opiates Screen POS Urine Barbiturates Screen NEG Urine Amphetamines Screen POS Urine Benzodiazepines Screen NEG Urine Cocaine Screen NEG Urine Cannabinoids Screen NEG Date/Time Source Procedure Growth Status 01/22/18 22:50 Blood Peripheral Aerobic Blood Culture - Preliminary NO GROWTH IN 1 DAY Resulted 01/22/18 22:50 Blood Peripheral Anaerobic Blood Culture - Preliminary NO GROWTH IN 1 DAY Resulted Result Diagram: 01/22/18 2250 01/22/18 2250 Imaging Last Impressions Lumbar Spine MRI 01/23/18 0000 Signed Impressions: CONCLUSION: 1. Marrow edema and abnormal enhancement involving the inferior portion of the L1 vertebral body as well as the L2 and L3 vertebral bodies most characteristi c of osteomyelitis. There is also enhancement portion of the L2-3 disc space co nsistent with discitis. 2. Abnormal enhancement along the anterior and lateral epidural space at the L 2 and L3 levels as well as along the posterior disc margin at L2-3 characterist ic of a small anterior epidural abscess. 3. 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 Thoracic Spine MRI 01/22/18 0000 Signed Impressions: CONCLUSION: 1. Small posterior central disc protrusion at the T8-9 level with slight darius ening of the anterior thecal sac. 2. The study is otherwise unremarkable with no abnormal enhancement or evidenc e to suggest osteomyelitis in the thoracic spine. Assessment and Plan Assessment and Plan IMPRESSION Li-L3 discitis - ?new pathogen - Hx Serratia discitis 2010 Known IVDU RECOMMENDATION Hold Abx Patient to go to the [facility], and will have neurosurgical evaluation We will need to get aspiration of the disc for microbiological analysis Get a baseline CRP Hold off on any further antibiotic until further diagnostic procedures done I will follow along with you Thank you for this consultation Discussed Condition With Explained plan to the patient Discussed with Melisa Mann MD January 23, 2018 13:28
[2018-01-23] MEDS: KETOROLAC TROMETHAMINE 30 MG/ML (IVP) VIAL IV PUSH SCH ×2 (15:12→21:15)
[2018-01-23 16:15] VITALS: BP 139/82; PULSE 67; RESP 20; O2SAT 96
--- NOTE | 2018-01-23 17:06 | ECHRPT ---
Indication: POSS SEPSIS, ENDOCARDITIS CONCLUSIONS Normal left ventricular size. Wall thickness is normal, The left ventricular systolic function is normal with an estimated ejection fraction in the range of 55-60%. There is trace tricuspid valve regurgitation. BP: 147 / 75 HR: 69 Rhythm: Sinus MEASUREMENTS (Male / Female) Normal Values Technical Quality:Fair 2D ECHO LV Diastolic Diameter PLAX 5.6 cm 4.2 - 5.9 / 3.9 - 5.3 cm LV Systolic Diameter PLAX 4.3 cm IVS Diastolic Thickness 0.9 cm 0.6 - 1.0 / 0.6 - 0.9 cm LVPW Diastolic Thickness 0.9 cm 0.6 - 1.0 / 0.6 - 0.9 cm LV Relative Wall Thickness 0.3 RV Internal Dim ED PLAX 3.5 cm LVOT Diameter 2.3 cm Aortic Root Diameter 3.4 cm M-MODE AV Cusp Separation MM 2.3 cm DOPPLER AV Peak Velocity 108.0 cm/s AV Peak Gradient 4.7 mmHg AV Mean Gradient 3.0 mmHg AV Velocity Time Integral 18.2 cm LVOT Peak Velocity 94.7 cm/s LVOT Peak Gradient 3.6 mmHg LVOT Velocity Time Integral 19.9 cm AV Area Cont Eq vti 4.5 cm AV Area Cont Eq pk 3.6 cm Mitral E Point Velocity 53.8 cm/s Mitral A Point Velocity 48.9 cm/s Mitral E to A Ratio 1.1 LV E' Lateral Velocity 15.3 cm/s Mitral E to LV E' Lateral Ratio 3.5 LV E' Septal Velocity 11.0 cm/s Mitral E to LV E' Septal Ratio 4.9 TR Peak Velocity 228.0 cm/s TR Peak Gradient 20.8 mmHg Right Atrial Pressure 10.0 mmHg Pulmonary Artery Systolic Pressu 30.8 mmHg Right Ventricular Systolic Press 30.8 mmHg PV Peak Velocity 54.1 cm/s PV Peak Gradient 1.2 mmHg FINDINGS LEFT VENTRICLE Normal left ventricular size. Wall thickness is normal, The left ventricular systolic function is normal with an estimated ejection fraction in the range of 55-60%. RIGHT VENTRICLE Normal right ventricular size and systolic function. LEFT ATRIUM The left atrial size is normal. RIGHT ATRIUM The right atrial size is normal. ATRIAL SEPTUM No atrial level shunt is demonstrated by color flow Doppler interrogation. AORTA The aortic root and proximal ascending aorta are normal in size on limited imaging. MITRAL VALVE Structurally normal mitral valve. No mitral valve stenosis or regurgitation. AORTIC VALVE Trileaflet aortic valve. No aortic valve stenosis or regurgitation. TRICUSPID VALVE There is trace tricuspid valve regurgitation. PULMONARY VALVE No pulmonary valve regurgitation or stenosis. VESSELS The inferior vena cava is normal in size. PERICARDIUM No pericardial effusion. Tanvir Sheridan MD, FACC, [facility] (Electronically Signed) Final Date:23 Jan 2018 17:05
[2018-01-23 20:00] VITALS: BP 113/60; PULSE 70; RESP 20; TEMP 97.7; O2SAT 96
[2018-01-24] VITALS (9 sets, daily range): BP systolic 101–125; BP diastolic 57–76; PULSE 50–64; RESP 15–21; TEMP 97.4–98.1; O2SAT 92–98
[2018-01-24] MEDS: HEPARIN SODIUM - SQ 10,000 UNITS/ML VIAL SQ SCH ×2 (03:00→14:57)
[2018-01-24] MEDS: KETOROLAC TROMETHAMINE 30 MG/ML (IVP) VIAL IV PUSH SCH ×4 (04:45→21:00)
[2018-01-24] MEDS: REMOVE OLD PATCH T-DERMAL SCH (09:00)
[2018-01-24] MEDS: NICOTINE 21 MG/24 HR PATCH T-DERMAL SCH (09:00)
--- NOTE | 2018-01-24 09:22 | PD.CONS ---
HPI Consult Requested By Primary Care Physician No Primary Care Physician History of Present Illness This is a 42-year-old male, brought to the hospital with worsening low back pain for the past 4 weeks. His pain is axial, in the lumbar region. No weakness. No sensory loss. He denies any bladder or bladder bowel dysfunction. Denies any respiratory complaint. Patient has known active IV drug use. He has a history of L1-L2 Serratia discitis for which he received a course of antibiotic therapy. He had another admission in 2010, and had an MRI again at that time which showed improvement in his findings. When he came to the hospital this time, MRI of the thoracic and lumbar spine showed enhancement of L1 and now as well as L2 and L3. His sed rate is elevated. Neurosurgical consultation has been requested Review of Systems Constitutional: DENIES: Fever, Chills, Night Sweats Eyes: DENIES: Eye pain Ears, nose, mouth, throat: DENIES: Nasal discharge, Oral lesions, Throat pain, Ear Pain, Sinus Pain Respiratory: DENIES: Cough, Shortness of breath Cardiovascular: DENIES: Chest pain, Palpitations, Syncope, Dyspnea on Exertion Gastrointestinal: DENIES: Abdominal pain, Diarrhea, Nausea, Vomiting Genitourinary: DENIES: Urgency, Hematuria, Dysuria Musculoskeletal: COMPLAINS OF: Back pain, DENIES: Joint pain, Joint Swelling Integumentary: DENIES: Pruritus, Rash Hematologic/lymphatic: DENIES: Lymphadenopathy Neurologic: DENIES: Localized weakness Psychiatric: DENIES: Hallucinations Past Family Social History Allergies: Coded Allergies: No Known Allergies (Verified Allergy, Unknown, 01/23/18) Past Medical History L1L2 Serratia discitis Rx in 2009 Hx VSD Past Surgical History None Social History Smokes 1/2 ppd No ETOH abuse IVDU - methamphetamine, heroine Physical Exam Vital Signs Vital Signs Date Time Temp Pulse Resp B/P (MAP) Pulse Ox O2 Delivery O2 Flow Rate FiO2 01/24/18 08:43 97.6 58 18 110/59 (76) 97 01/24/18 04:00 97.6 58 20 101/59 (73) 95 01/24/18 00:00 97.4 60 20 104/57 (73) 94 01/23/18 20:00 97.7 70 20 113/60 (77) 96 01/23/18 18:09 01/23/18 16:15 67 20 139/82 (101) 96 01/23/18 11:31 62 20 132/75 (94) 97 Physical Exam GENERAL: Patient is a well-nourished, well-developed male, awake and alert, not in respiratory distress. SKIN: Warm and dry. No generalized rash, no ecchymoses and no evidence of embolic lesions. HEAD: Atraumatic. Normocephalic. No temporal wasting, or tenderness. EYES: [place] conjunctiva. No petechia or hemorrhage. Pupils equal, round and reactive to light. Extraocular movements full and intact. No scleral icterus. No injection or drainage. EARS, NOSE AND THROAT: Nose without bleeding or purulent nasal discharge. No sinus tenderness. Mucous membranes pink and moist. No oral lesions noted. No exudate. No oral thrush. NECK: Trachea midline. Supple and not tender, no meningeal signs CARDIOVASCULAR: Regular rate and rhythm. Has systolic murmur apex. RESPIRATORY: Clear to auscultation. Breath sounds equal bilaterally. No rales , wheezing or rhonchi ABDOMEN: Soft, non-tender, nondistended. Bowel sounds present and normoactive. No guarding. No rebound. No organomegaly. EXTREMITIES: No clubbing, cyanosis, or edema.No joint effusion, has good ROM. No calf tenderness. Well perfused and warm. NEUROLOGICAL: Awake and alert. Cranial nerves grossly intact. Motor grossly within normal limits. PSYCHIATRIC: Normal affect, calm and cooperative. LINE: No evidence of infection Laboratory Laboratory Tests Test 01/24/18 08:21 Date/Time Source Procedure Growth Status 01/24/18 08:28 Blood Peripheral Aerobic Blood Culture Pending Received 01/24/18 08:28 Blood Peripheral Anaerobic Blood Culture Pending Received Result Diagram: 01/22/18224901/22/180 Attending Statement I reviewed his clinical and radiological studies Lumbar Spine MRI 01/23/18 0000 Signed Impressions: CONCLUSION: 1. Marrow edema and abnormal enhancement involving the inferior portion of the L1 vertebral body as well as the L2 and L3 vertebral bodies most characteristi c of osteomyelitis. There is also enhancement portion of the L2-3 disc space co nsistent with discitis. 2. Abnormal enhancement along the anterior and lateral epidural space at the L 2 and L3 levels as well as along the posterior disc margin at L2-3 characterist ic of a small anterior epidural abscess. 3. 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 There is no indication for a neurosurgical intervention. This patient is not in any antibiotics. Without antibiotics his infection will progress and he possibly will get paraplegia. The standard of cared for the treatment of discitis is intracevnous antibiotics and not surgery Recommend non surgical treatment with antibiotics. Please, don't delay antibiotics any further, if possibly. If a biopsy is needed, it shopuld be preformed promptly rather than delay treatment until he deteriorates. The patient has history of Serratia Discitis, and this is clearily a recurrent infection I called the attending physician requesting treatment to be started NEHEMIAS. Send blood cultures. Consider a CT guided biopsy needed proceed Nothing to offer from the surgical standpoint at this time Pulmonary. Continue aggressive pulmonary toilette, nasotracheal suction, and breathing treatments with nebulizers. Daily PT and OT Renal. Continue to monitor closely urine output, BUN and creatinine Endocrine. Continue to Monitor serial Acu checks and SSI as needed in detail ID continue to monitor for signs of infection Continue Protonix for stress ulcer prophylaxis Continue Too hose and SCD's for DVT prophylaxis Will sign off Blane Calderón MD January 24, 2018 09:22
[2018-01-24 09:37] LABS: CREATININE 0.92 MG/DL (0.60-1.30)
[2018-01-24] MEDS: SODIUM CHLORIDE 0.9% FLUSH 10 ML FLUSH IV FLUSH SCH ×2 (09:52→21:00)
--- NOTE | 2018-01-24 10:12 | HHI.IDPN ---
Subjective Subjective Remarks Patient is a 42-year-old male, presented to the hospital with worsening low back pain which has been going on for about 4 weeks. He denies any bladder or bladder bowel dysfunction. He has not had any fever chills or sweats. Denies any respiratory complaint. Patient has known active IV drug use. He has a history of L1-L2 Serratia discitis for which he received a course of antibiotic therapy. He had another admission in 2010, and had an MRI again at that time which showed improvement in his findings. When he came to the hospital this time, MRI of the thoracic spine was done, and it is again showing enhancement of L1 and now as well as L2 and L3. He has not been febrile. His sed rate is elevated. Infectious disease consultation has been requested to evaluate the patient. Notes reviewed NO fever NS evaluation noted No order yet for biopsy of back Patient had his first discitis 2009, and in 2010 repeat MRI showed improvement He continues to use IV drugs He has been pain free until recently Antibiotics Current Medications Medications (Trade) Dose Ordered Sig/Rosanna Route Start Time Stop Time Status Last Admin (NS Flush) 2 ml UNSCH PRN IV FLUSH 01/23/18 02:45 (NS Flush) 2 ml BID IV FLUSH 01/23/18 09:00 01/24/18 09:52 (Tylenol) 650 mg Q4H PRN PO 01/23/18 02:45 01/23/18 18:31 (Heparin Inj) 5,000 units Q12H SQ 01/23/18 03:00 01/23/18 15:00 (Narcan Inj) 0.4 mg UNSCH PRN IV PUSH 01/23/18 02:45 (Milk Of Magnesia Liq) 30 ml Q12H PRN PO 01/23/18 02:45 (Senokot) 17.2 mg Q12H PRN PO 01/23/18 02:45 (Dulcolax Supp) 10 mg DAILY PRN RECTAL 01/23/18 02:45 (Lactulose Liq) 30 ml DAILY PRN PO 01/23/18 02:45 Pharmacy Profile Note 0 ml @ 0 mls/hr UNSCH OTHER 01/23/18 02:45 Future Hold Piperacillin Sod/ Tazobactam Sod 100 ml @ 200 mls/hr Q8H IV 01/23/18 11:00 Future Hold 01/23/18 11:29 Vancomycin HCl 1900 mg/Sodium Chloride 519 ml @ 250 mls/hr Q12H IV 01/23/18 12:00 Future Hold 01/23/18 12:37 ([facility] Ordered Lab Info) SPECIFIC LAB TO BE ... ONCE ONCE .XX 01/25/18 11:45 01/25/18 11:46 (Habitrol 21 Mg Patch.24 Hr) 1 patch DAILY T-DERMAL 01/24/18 09:00 Miscellaneous Information 1 DAILY T-DERMAL 01/24/18 09:00 (Duoneb Neb) 1 ampule Q2HR NEB PRN NEB 01/23/18 09:15 (Toradol Inj) 30 mg Q6H IV PUSH 01/23/18 15:00 01/27/18 23:00 01/24/18 09:52 Lines Line no evidence of infection Past Medical History L1L2 Serratia discitis Rx in 2009 Hx VSD Allergies: Coded Allergies: No Known Allergies (Verified Allergy, Unknown, 01/23/18) Objective . Vital Signs Date Time Temp Pulse Resp B/P (MAP) Pulse Ox O2 Delivery O2 Flow Rate FiO2 01/24/18 08:43 97.6 58 18 110/59 (76) 97 01/24/18 04:00 97.6 58 20 101/59 (73) 95 01/24/18 00:00 97.4 60 20 104/57 (73) 94 01/23/18 20:00 97.7 70 20 113/60 (77) 96 01/23/18 18:09 01/23/18 16:15 67 20 139/82 (101) 96 01/23/18 11:31 62 20 132/75 (94) 97 . Laboratory Tests Test 01/22/18 22:50 01/23/18 04:25 White Blood Count 9.5 TH/MM3 Red Blood Count 4.62 MIL/MM3 Hemoglobin 12.9 GM/DL Hematocrit 38.4 % Mean Corpuscular Volume 83.2 FL Mean Corpuscular Hemoglobin 27.9 PG Mean Corpuscular Hemoglobin Concent 33.6 % Red Cell Distribution Width 12.7 % Platelet Count 396 TH/MM3 Mean Platelet Volume 6.5 FL Neutrophils (%) (Auto) 77.0 % Lymphocytes (%) (Auto) 13.2 % Monocytes (%) (Auto) 8.5 % Eosinophils (%) (Auto) 0.7 % Basophils (%) (Auto) 0.6 % Neutrophils # (Auto) 7.2 TH/MM3 Lymphocytes # (Auto) 1.3 TH/MM3 Monocytes # (Auto) 0.8 TH/MM3 Eosinophils # (Auto) 0.1 TH/MM3 Basophils # (Auto) 0.1 TH/MM3 CBC Comment DIFF FINAL Differential Comment Erythrocyte Sedimentation Rate 40 mm/hr Laboratory Tests Test 01/22/18 22:50 01/24/18 08:21 Blood Urea Nitrogen 9 MG/DL Creatinine 0.79 MG/DL 0.92 MG/DL Random Glucose 89 MG/DL Total Protein 9.2 GM/DL Albumin 3.5 GM/DL Calcium Level 9.4 MG/DL Alkaline Phosphatase 81 U/L Aspartate Amino Transf (AST/SGOT) 35 U/L Alanine Aminotransferase (ALT/SGPT) 38 U/L Total Bilirubin 0.6 MG/DL Sodium Level 133 MEQ/L Potassium Level 4.0 MEQ/L Chloride Level 99 MEQ/L Carbon Dioxide Level 29.8 MEQ/L Anion Gap 4 MEQ/L Estimat Glomerular Filtration Rate 108 ML/MIN 91 ML/MIN Lactic Acid Level 0.8 mmol/L Microbiology Date/Time Source Procedure Growth Status 01/24/18 08:28 Blood Peripheral Aerobic Blood Culture Pending Received 01/24/18 08:28 Blood Peripheral Anaerobic Blood Culture Pending Received 01/24/18 08:21 Blood Peripheral Aerobic Blood Culture Pending Received 01/24/18 08:21 Blood Peripheral Anaerobic Blood Culture Pending Received 01/22/18 22:50 Blood Peripheral Aerobic Blood Culture - Preliminary NO GROWTH IN 1 DAY Resulted 01/22/18 22:50 Blood Peripheral Anaerobic Blood Culture - Preliminary NO GROWTH IN 1 DAY Resulted 01/22/18 22:50 Blood Peripheral Aerobic Blood Culture - Preliminary NO GROWTH IN 1 DAY Resulted 01/22/18 22:50 Blood Peripheral Anaerobic Blood Culture - Preliminary NO GROWTH IN 1 DAY Resulted Imaging Last Impressions Lumbar Spine MRI 01/23/18 0000 Signed Impressions: CONCLUSION: 1. Marrow edema and abnormal enhancement involving the inferior portion of the L1 vertebral body as well as the L2 and L3 vertebral bodies most characteristi c of osteomyelitis. There is also enhancement portion of the L2-3 disc space co nsistent with discitis. 2. Abnormal enhancement along the anterior and lateral epidural space at the L 2 and L3 levels as well as along the posterior disc margin at L2-3 characterist ic of a small anterior epidural abscess. 3. 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 Thoracic Spine MRI 01/22/18 0000 Signed Impressions: CONCLUSION: 1. Small posterior central disc protrusion at the T8-9 level with slight darius ening of the anterior thecal sac. 2. The study is otherwise unremarkable with no abnormal enhancement or evidenc e to suggest osteomyelitis in the thoracic spine. Physical Exam GENERAL: Patient is a well-nourished, well-developed male, awake and alert, not in respiratory distress. SKIN: Warm and dry. No generalized rash, no ecchymoses and no evidence of embolic lesions. HEAD: Atraumatic. Normocephalic. No temporal wasting, or tenderness. EYES: [place] conjunctiva. No petechia or hemorrhage. Pupils equal, round and reactive to light. Extraocular movements full and intact. No scleral icterus. No injection or drainage. EARS, NOSE AND THROAT: Nose without bleeding or purulent nasal discharge. No sinus tenderness. Mucous membranes pink and moist. No oral lesions noted. No exudate. No oral thrush. NECK: Trachea midline. Supple and not tender, no meningeal signs CARDIOVASCULAR: Regular rate and rhythm. Has systolic murmur apex. RESPIRATORY: Clear to auscultation. Breath sounds equal bilaterally. No rales , wheezing or rhonchi ABDOMEN: Soft, non-tender, nondistended. Bowel sounds present and normoactive. No guarding. No rebound. No organomegaly. EXTREMITIES: No clubbing, cyanosis, or edema.No joint effusion, has good ROM. No calf tenderness. Well perfused and warm. NEUROLOGICAL: Awake and alert. Cranial nerves grossly intact. Motor grossly within normal limits. PSYCHIATRIC: Normal affect, calm and cooperative. LINE: No evidence of infection Assessment & Plan Remarks IMPRESSION Li-L3 discitis - ?new pathogen, at high risk due to his ongoing IVDU - Hx Serratia discitis 2009 treated, fup MRI 2010 better Known IVDU RECOMMENDATION Hold off on any further antibiotic until further diagnostic procedures done - this will be reinstituted after procedure done Will need biopsy/aspiration of the involved area Can not assume that this is the same bacteria without any microbiologic confirmation since patient has ongoing IVDU and could have acquired a new pathogen. he has been pain free until this current problem. Also empiric broad spectrum Abx without any specific organism not ideal since treatment currently involves a long course of Abx even up to 8-12 weeks Get a baseline CRP D/W Melisa Mann MD January 24, 2018 10:12
--- NOTE | 2018-01-24 11:40 | HHI.PR ---
Subjective Remarks Patient reports he is feeling okay except for lower back discomfort. No fevers or chills. Objective Vitals Vital Signs Date Time Temp Pulse Resp B/P (MAP) Pulse Ox O2 Delivery O2 Flow Rate FiO2 01/24/18 08:43 97.6 58 18 110/59 (76) 97 01/24/18 04:00 97.6 58 20 101/59 (73) 95 01/24/18 00:00 97.4 60 20 104/57 (73) 94 01/23/18 20:00 97.7 70 20 113/60 (77) 96 01/23/18 18:09 01/23/18 16:15 67 20 139/82 (101) 96 I/O 01/23/18 01/23/18 01/23/18 01/24/18 01/24/18 01/24/18 07:00 15:00 23:00 07:00 15:00 23:00 Intake Total 350 ml 480 ml 480 ml Output Total 400 ml Balance -50 ml 480 ml 480 ml Intake Oral 480 ml 480 ml IV Total 350 ml Output Urine Total 400 ml # Voids 1 3 6 # Bowel Movements 0 0 Result Diagram: 01/22/18 2250 01/24/18 0821 Objective Remarks GENERAL: This is a well-nourished, well-developed patient, in no apparent distress. CARDIOVASCULAR: Normal rate and regular rhythm without murmurs, gallops, or rubs. RESPIRATORY: Good respiratory efforts. Breath sounds equal and clear to auscultation bilaterally. GASTROINTESTINAL: Abdomen soft, non-tender, non-distended. Normal active bowel sounds MUSCULOSKELETAL: Patient endorse tenderness to palpation over lumbar area. NEURO: Alert & Oriented x4 to person, place, time, situation. Moves all ext x4 PSYCH: Appropriate mood and affect. A/P Problem List: (1) Osteomyelitis of lumbar spine ICD Code: M46.26 - Osteomyelitis of vertebra, lumbar region Status: Acute (2) Discitis ICD Code: M46.40 - Discitis, unspecified, site unspecified Status: Acute (3) Epidural abscess ICD Code: G06.2 - Extradural and subdural abscess, unspecified Status: Acute (4) Tobacco abuse ICD Code: Z72.0 - Tobacco use (5) IVDU (intravenous drug user) ICD Code: F19.90 - Other psychoactive substance use, unspecified, uncomplicated Assessment and Plan 42-year-old man with Osteomyelitis of lumbar spine Lumbar spine MRI noted Neurosurgery consulted on the patient. Per Dr. Calderón, not a surgical case and recommends antibiotics. However I agree with ID to not assume this is the same infection as this was about 8 years ago. Will wait for CT guided aspiration/biopsy before resuming antibiotics. He did receive Vancomycin and Zosyn less than 24 hours ago as noted in the H&P and med rec. Secondary to patient history of IVDU, 2D echo to rule out endocarditis. Tobacco abuse Tobacco counseling cessation provided Start nicotine patch IVDU Counseling cessation provided Check 2D echo to rule out endocarditis Normochromic normocytic anemia of chronic disease H&H stable, continue to monitor CBC DVT prophylaxis: Heparin Problem Qualifiers (1) Discitis: Qualified Codes: M46.46 - Discitis, unspecified, lumbar region Vandana Villegas MD January 24, 2018 11:40
[2018-01-24] MEDS ORDERED: fentaNYL CITRATE 250 MCG/5 ML AMP ONE (15:29)
[2018-01-24] MEDS ORDERED: MIDAZOLAM HCL 5 MG/5 ML VIAL ONE (15:29)
[2018-01-24] MEDS ORDERED: Vancomycin Consult Pharmacy 1 EA OTHER SCH (17:45)
[2018-01-24] MEDS ORDERED: VANCOMYCIN INJ 1,250 MG in SODIUM CHLOR 0.9% 250 ML INJ 250 ML IV ONE (18:00)
[2018-01-24] MEDS: PIPERACIL-TAZO 3.375 GM PREMIX 50 ML IV SCH (19:04)
[2018-01-25] VITALS: BP 121/57; PULSE 69; RESP 16; TEMP 98; O2SAT 92
[2018-01-25] MEDS: PIPERACIL-TAZO 3.375 GM PREMIX 50 ML IV SCH ×3 (01:23→17:45)
[2018-01-25 04:00] VITALS: BP 120/70; PULSE 68; RESP 16; TEMP 97.6; O2SAT 98
[2018-01-25] MEDS: VANCOMYCIN INJ 1,150 MG in SODIUM CHLOR 0.9% 250 ML INJ 250 ML IV SCH ×3 (04:11→21:30)
[2018-01-25] MEDS: HEPARIN SODIUM - SQ 10,000 UNITS/ML VIAL SQ SCH ×2 (04:12→15:43)
[2018-01-25] MEDS: KETOROLAC TROMETHAMINE 30 MG/ML (IVP) VIAL IV PUSH SCH ×4 (04:13→21:29)
[2018-01-25 08:00] VITALS: BP 108/56; PULSE 62; RESP 16; TEMP 98.1; O2SAT 95
--- NOTE | 2018-01-25 09:05 | HHI.IDPN ---
Subjective Subjective Remarks Patient is a 42-year-old male, presented to the hospital with worsening low back pain which has been going on for about 4 weeks. He denies any bladder or bladder bowel dysfunction. He has not had any fever chills or sweats. Denies any respiratory complaint. Patient has known active IV drug use. He has a history of L1-L2 Serratia discitis for which he received a course of antibiotic therapy. He had another admission in 2010, and had an MRI again at that time which showed improvement in his findings. When he came to the hospital this time, MRI of the thoracic spine was done, and it is again showing enhancement of L1 and now as well as L2 and L3. He has not been febrile. His sed rate is elevated. Infectious disease consultation has been requested to evaluate the patient. Notes reviewed Afebrile Had biopsy of back yesterday I spoke with radiology yesterday G/S negative for organism BC negative Patient had his first discitis 2009, and in 2010 repeat MRI showed improvement He continues to use IV drugs On Vanco and Zosyn Antibiotics Current Medications Medications (Trade) Dose Ordered Sig/Rosanna Route Start Time Stop Time Status Last Admin (NS Flush) 2 ml UNSCH PRN IV FLUSH 01/23/18 02:45 (NS Flush) 2 ml BID IV FLUSH 01/23/18 09:00 01/24/18 21:00 (Tylenol) 650 mg Q4H PRN PO 01/23/18 02:45 01/23/18 18:31 (Heparin Inj) 5,000 units Q12H SQ 01/23/18 03:00 01/25/18 04:12 (Narcan Inj) 0.4 mg UNSCH PRN IV PUSH 01/23/18 02:45 (Milk Of Magnesia Liq) 30 ml Q12H PRN PO 01/23/18 02:45 (Senokot) 17.2 mg Q12H PRN PO 01/23/18 02:45 (Dulcolax Supp) 10 mg DAILY PRN RECTAL 01/23/18 02:45 (Lactulose Liq) 30 ml DAILY PRN PO 01/23/18 02:45 ([facility] Ordered Lab Info) SPECIFIC LAB TO BE ... ONCE ONCE .XX 01/25/18 11:45 01/25/18 11:46 (Habitrol 21 Mg Patch.24 Hr) 1 patch DAILY T-DERMAL 01/24/18 09:00 Miscellaneous Information 1 DAILY T-DERMAL 01/24/18 09:00 (Duoneb Neb) 1 ampule Q2HR NEB PRN NEB 01/23/18 09:15 (Toradol Inj) 30 mg Q6H IV PUSH 01/23/18 15:00 01/27/18 23:00 01/25/18 04:13 Pharmacy Profile Note 0 ml @ 0 mls/hr UNSCH OTHER 01/24/18 17:45 Piperacillin Sod/ Tazobactam Sod 50 ml @ 100 mls/hr Q8H IV 01/24/18 18:00 01/25/18 01:23 Vancomycin HCl 1150 mg/Sodium Chloride 261.5 ml @ 250 mls/hr Q8H IV 01/25/18 04:00 01/25/18 04:11 ([facility] Ordered Lab Info) SPECIFIC LAB TO BE DRAWN:VANCO TROUGH DATE TO BE DR... ONCE ONCE .XX 01/25/18 19:45 01/25/18 19:46 Lines Line no evidence of infection Past Medical History L1L2 Serratia discitis Rx in 2009 Hx VSD Allergies: Coded Allergies: No Known Allergies (Verified Allergy, Unknown, 01/23/18) Objective . Vital Signs Date Time Temp Pulse Resp B/P (MAP) Pulse Ox O2 Delivery O2 Flow Rate FiO2 01/25/18 08:00 98.1 62 16 108/56 (73) 95 01/25/18 05:42 18 01/25/18 04:00 97.6 68 16 120/70 (87) 98 01/25/18 00:00 98.0 69 16 121/57 (78) 92 01/24/18 20:00 98.0 57 16 121/75 (90) 97 01/24/18 17:36 57 17 125/74 (91) 98 01/24/18 17:06 55 16 121/71 (88) 97 01/24/18 16:36 50 15 124/76 (92) 96 01/24/18 16:21 97.4 64 16 114/69 (84) 92 01/24/18 12:31 98.1 61 21 . Laboratory Tests Test 01/24/18 08:21 Creatinine 0.92 MG/DL Estimat Glomerular Filtration Rate 91 ML/MIN C-Reactive Protein 2.20 MG/DL Microbiology Date/Time Source Procedure Growth Status 01/24/18 08:28 Blood Peripheral Aerobic Blood Culture Pending Received 01/24/18 08:28 Blood Peripheral Anaerobic Blood Culture Pending Received 01/24/18 08:21 Blood Peripheral Aerobic Blood Culture Pending Received 01/24/18 08:21 Blood Peripheral Anaerobic Blood Culture Pending Received 01/22/18 22:50 Blood Peripheral Aerobic Blood Culture - Preliminary NO GROWTH IN 2 DAYS Resulted 01/22/18 22:50 Blood Peripheral Anaerobic Blood Culture - Preliminary NO GROWTH IN 2 DAYS Resulted 01/22/18 22:50 Blood Peripheral Aerobic Blood Culture - Preliminary NO GROWTH IN 2 DAYS Resulted 01/22/18 22:50 Blood Peripheral Anaerobic Blood Culture - Preliminary NO GROWTH IN 2 DAYS Resulted 01/24/18 16:28 Fluid Other Fungal Smear - Final NO FUNGAL ELEMENTS SEEN. Resulted 01/24/18 16:28 Fluid Other Fungal Culture Pending Resulted 01/24/18 16:28 Fluid Other Acid Fast Stain Pending Received 01/24/18 16:28 Fluid Other Mycobacterial Culture Pending Received 01/24/18 16:28 Fluid Other Gram Stain - Final Resulted 01/24/18 16:28 Fluid Other Body Fluid Culture Pending Resulted Imaging Last Impressions Lumbar Spine MRI 01/23/18 0000 Signed Impressions: CONCLUSION: 1. Marrow edema and abnormal enhancement involving the inferior portion of the L1 vertebral body as well as the L2 and L3 vertebral bodies most characteristi c of osteomyelitis. There is also enhancement portion of the L2-3 disc space co nsistent with discitis. 2. Abnormal enhancement along the anterior and lateral epidural space at the L 2 and L3 levels as well as along the posterior disc margin at L2-3 characterist ic of a small anterior epidural abscess. 3. 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 Thoracic Spine MRI 01/22/18 0000 Signed Impressions: CONCLUSION: 1. Small posterior central disc protrusion at the T8-9 level with slight darius ening of the anterior thecal sac. 2. The study is otherwise unremarkable with no abnormal enhancement or evidenc e to suggest osteomyelitis in the thoracic spine. Assessment & Plan Remarks IMPRESSION L2-L3 discitis - ?new pathogen, at high risk due to his ongoing IVDU - Hx Serratia discitis 2009 treated, fup MRI 2010 better Known IVDU RECOMMENDATION Follow C/S and adjust Abx Continue empiric Abx: slava and Scotty I had discussed case with Dr Villegas yesterday Monitor progress Will determine course of Rx once work-up completed Melisa Lama MD January 25, 2018 09:05
[2018-01-25] MEDS: NICOTINE 21 MG/24 HR PATCH T-DERMAL SCH (09:27)
[2018-01-25] MEDS: SODIUM CHLORIDE 0.9% FLUSH 10 ML FLUSH IV FLUSH SCH ×2 (09:28→21:29)
[2018-01-25] MEDS: REMOVE OLD PATCH T-DERMAL SCH (09:28)
[2018-01-25] MEDS ORDERED: CEFEPIME INJ 2,000 MG in SODIUM CHLORIDE 0.9% INJ 100 ML IV SCH (10:00)
[2018-01-25 11:43] VITALS: BP 119/66; PULSE 66; RESP 18; TEMP 98.6; O2SAT 97
[2018-01-25] MEDS ORDERED: PHARMACY ORDERED LAB ONE ×2 (11:45→19:45)
[2018-01-25 15:21] VITALS: BP 141/74; PULSE 59; RESP 18; TEMP 98.6; O2SAT 98
--- NOTE | 2018-01-25 15:22 | HHI.PR ---
Subjective Remarks Patient reports he is feeling okay. Pain is controlled. Objective Vitals Vital Signs Date Time Temp Pulse Resp B/P (MAP) Pulse Ox O2 Delivery O2 Flow Rate FiO2 01/25/18 11:43 98.6 66 18 119/66 (83) 97 01/25/18 08:00 98.1 62 16 108/56 (73) 95 01/25/18 05:42 18 01/25/18 04:00 97.6 68 16 120/70 (87) 98 01/25/18 00:00 98.0 69 16 121/57 (78) 92 01/24/18 20:00 98.0 57 16 121/75 (90) 97 01/24/18 17:36 57 17 125/74 (91) 98 01/24/18 17:06 55 16 121/71 (88) 97 01/24/18 16:36 50 15 124/76 (92) 96 01/24/18 16:21 97.4 64 16 114/69 (84) 92 I/O 01/24/18 01/24/18 01/24/18 01/25/18 01/25/18 01/25/18 07:00 15:00 23:00 07:00 15:00 23:00 Intake Total 480 ml 300 ml Balance 480 ml 300 ml Intake Oral 480 ml IV Total 300 ml # Voids 6 # Bowel Movements 0 Result Diagram: 01/22/18 2250 01/24/18 0821 Objective Remarks GENERAL: This is a well-nourished, well-developed patient, in no apparent distress. CARDIOVASCULAR: Normal rate and regular rhythm without murmurs, gallops, or rubs. RESPIRATORY: Good respiratory efforts. Breath sounds equal and clear to auscultation bilaterally. GASTROINTESTINAL: Abdomen soft, non-tender, non-distended. Normal active bowel sounds MUSCULOSKELETAL: Patient endorse tenderness to palpation over lumbar area. NEURO: Alert & Oriented x4 to person, place, time, situation. Moves all ext x4 PSYCH: Appropriate mood and affect. A/P Problem List: (1) Osteomyelitis of lumbar spine ICD Code: M46.26 - Osteomyelitis of vertebra, lumbar region Status: Acute (2) Discitis ICD Code: M46.40 - Discitis, unspecified, site unspecified Status: Acute (3) Epidural abscess ICD Code: G06.2 - Extradural and subdural abscess, unspecified Status: Acute (4) Tobacco abuse ICD Code: Z72.0 - Tobacco use (5) IVDU (intravenous drug user) ICD Code: F19.90 - Other psychoactive substance use, unspecified, uncomplicated Assessment and Plan 42-year-old man with Osteomyelitis of lumbar spine Lumbar spine MRI noted Neurosurgery consulted on the patient. Per Dr. Calderón, not a surgical case and recommends antibiotics. Appreciate ID following. On vancomycin and Zosyn currently. Status post CT-guided aspiration/biopsy. Follow cultures. Tobacco abuse Tobacco counseling cessation provided nicotine patch IVDU Counseling cessation provided 2D echo reports trace tricuspid valve regurgitation. Will discuss with ID if REBECCA is warranted. Normochromic normocytic anemia of chronic disease H&H stable, continue to monitor CBC DVT prophylaxis: Heparin Problem Qualifiers (1) Discitis: Qualified Codes: M46.46 - Discitis, unspecified, lumbar region Vandana Villegas MD January 25, 2018 15:22
[2018-01-25 20:00] VITALS: BP_SYST 131; BP_SYST 149; BP_DIAS 66; BP_DIAS 84; PULSE 105; PULSE 52; RESP 18; TEMP 100; TEMP 98.5; O2SAT 99
[2018-01-26] VITALS: BP 120/59; PULSE 64; RESP 18; TEMP 97.5; O2SAT 98
[2018-01-26] MEDS: HEPARIN SODIUM - SQ 10,000 UNITS/ML VIAL SQ SCH ×2 (03:00→14:50)
[2018-01-26] MEDS: KETOROLAC TROMETHAMINE 30 MG/ML (IVP) VIAL IV PUSH SCH ×2 (03:08→10:00)
[2018-01-26] MEDS: PIPERACIL-TAZO 3.375 GM PREMIX 50 ML IV SCH ×3 (03:08→17:47)
[2018-01-26] MEDS: VANCOMYCIN INJ 1,150 MG in SODIUM CHLOR 0.9% 250 ML INJ 250 ML IV SCH ×3 (03:42→20:29)
[2018-01-26] MEDS ORDERED: PHARMACY ORDERED LAB ONE (03:45)
[2018-01-26 04:00] VITALS: BP 105/56; PULSE 53; RESP 18; TEMP 98.6; O2SAT 95
[2018-01-26 08:00] VITALS: BP 99/58; PULSE 53; RESP 18; TEMP 97.1; O2SAT 97
[2018-01-26] MEDS: NICOTINE 21 MG/24 HR PATCH T-DERMAL SCH (10:00)
[2018-01-26] MEDS: SODIUM CHLORIDE 0.9% FLUSH 10 ML FLUSH IV FLUSH SCH ×2 (10:00→20:29)
[2018-01-26] MEDS: REMOVE OLD PATCH T-DERMAL SCH (10:17)
[2018-01-26 11:52] VITALS: BP 113/60; PULSE 56; RESP 18; TEMP 98.3; O2SAT 96
--- NOTE | 2018-01-26 13:36 | HHI.PR ---
Subjective Remarks Patient reports his pain is not controlled with Toradol. No new issues. Objective Vitals Vital Signs Date Time Temp Pulse Resp B/P (MAP) Pulse Ox O2 Delivery O2 Flow Rate FiO2 01/26/18 11:52 98.3 56 18 113/60 (77) 96 01/26/18 08:00 97.1 53 18 99/58 (72) 97 01/26/18 04:00 98.6 53 18 105/56 (72) 95 01/26/18 00:00 97.5 64 18 120/59 (79) 98 01/25/18 20:00 100.0 52 18 131/84 (100) 99 01/25/18 15:21 98.6 59 18 141/74 (96) 98 I/O 01/25/18 01/25/18 01/25/18 01/26/18 01/26/18 01/26/18 06:59 14:59 22:59 06:59 14:59 22:59 Intake Total 305 ml Balance 305 ml IV Total 305 ml # Voids 1 2 Result Diagram: 01/22/18 2250 01/24/18 0821 Objective Remarks GENERAL: This is a well-nourished, well-developed patient, in no apparent distress. CARDIOVASCULAR: Normal rate and regular rhythm without murmurs, gallops, or rubs. RESPIRATORY: Good respiratory efforts. Breath sounds equal and clear to auscultation bilaterally. GASTROINTESTINAL: Abdomen soft, non-tender, non-distended. Normal active bowel sounds MUSCULOSKELETAL: Patient endorse tenderness to palpation over lumbar area. NEURO: Alert & Oriented x4 to person, place, time, situation. Moves all ext x4 PSYCH: Appropriate mood and affect. A/P Problem List: (1) Osteomyelitis of lumbar spine ICD Code: M46.26 - Osteomyelitis of vertebra, lumbar region Status: Acute (2) Discitis ICD Code: M46.40 - Discitis, unspecified, site unspecified Status: Acute (3) Epidural abscess ICD Code: G06.2 - Extradural and subdural abscess, unspecified Status: Acute (4) Tobacco abuse ICD Code: Z72.0 - Tobacco use (5) IVDU (intravenous drug user) ICD Code: F19.90 - Other psychoactive substance use, unspecified, uncomplicated Assessment and Plan 42-year-old man with Osteomyelitis of lumbar spine Lumbar spine MRI noted Neurosurgery consulted on the patient. Per Dr. Calderón, not a surgical case and recommends antibiotics. Appreciate ID following. On vancomycin and Zosyn currently. Status post CT-guided aspiration/biopsy. Follow cultures. Blood cultures so far negative. Transthoracic echo did not report vegetations. Pain is not controlled with Toradol. Will discontinue Toradol and add Percocet. Tobacco abuse Tobacco counseling cessation provided nicotine patch IVDU Counseling cessation provided 2D echo reports trace tricuspid valve regurgitation. No mention of vegetation. Given blood cultures are negative. Will defer REBECCA for now. Normochromic normocytic anemia of chronic disease H&H stable, continue to monitor CBC DVT prophylaxis: Heparin Problem Qualifiers (1) Discitis: Qualified Codes: M46.46 - Discitis, unspecified, lumbar region Vandana Villegas MD January 26, 2018 13:36
[2018-01-26 15:42] VITALS: BP 138/65; PULSE 70; RESP 18; TEMP 98.8; O2SAT 98
[2018-01-26] MEDS: oxyCODONE/ACETAMINOPHEN 5 MG/325 MG TAB PO PRN ×2 (17:47→22:26)
[2018-01-26 20:00] VITALS: BP 128/61; PULSE 53; RESP 18; TEMP 99.3; O2SAT 97
[2018-01-27] VITALS: BP 141/84; PULSE 54; RESP 18; TEMP 97.7; O2SAT 98
[2018-01-27] MEDS: oxyCODONE/ACETAMINOPHEN 5 MG/325 MG TAB PO PRN ×5 (02:51→19:42)
[2018-01-27] MEDS: PIPERACIL-TAZO 3.375 GM PREMIX 50 ML IV SCH ×3 (02:51→17:30)
[2018-01-27] MEDS: HEPARIN SODIUM - SQ 10,000 UNITS/ML VIAL SQ SCH ×2 (03:00→15:00)
[2018-01-27] MEDS ORDERED: PHARMACY ORDERED LAB ONE (03:45)
[2018-01-27 04:00] VITALS: BP 151/82; PULSE 52; RESP 18; TEMP 98.6; O2SAT 98
[2018-01-27] MEDS: VANCOMYCIN INJ 1,150 MG in SODIUM CHLOR 0.9% 250 ML INJ 250 ML IV SCH ×3 (05:00→19:41)
[2018-01-27 08:00] VITALS: BP 155/55; PULSE 68; RESP 18; TEMP 98.1; O2SAT 96
[2018-01-27] MEDS: NICOTINE 21 MG/24 HR PATCH T-DERMAL SCH (09:00)
[2018-01-27] MEDS: REMOVE OLD PATCH T-DERMAL SCH (09:00)
[2018-01-27] MEDS: SODIUM CHLORIDE 0.9% FLUSH 10 ML FLUSH IV FLUSH SCH ×2 (09:45→19:42)
--- NOTE | 2018-01-27 11:56 | HHI.PR ---
Subjective Remarks Patient reports persistent low back pain. States Percocet helped a little. Objective Vitals Vital Signs Date Time Temp Pulse Resp B/P (MAP) Pulse Ox O2 Delivery O2 Flow Rate FiO2 01/27/18 08:00 98.1 68 18 155/55 (88) 96 01/27/18 04:00 98.6 52 18 151/82 (105) 98 01/27/18 00:00 97.7 54 18 141/84 (103) 98 01/26/18 20:00 99.3 53 18 128/61 (83) 97 01/26/18 15:42 98.8 70 18 138/65 (89) 98 I/O 01/26/18 01/26/18 01/26/18 01/27/18 01/27/18 01/27/18 07:00 15:00 23:00 07:00 15:00 23:00 Intake Total 305 ml Balance 305 ml IV Total 305 ml # Voids 2 2 1 Result Diagram: 01/24/18 0821 Objective Remarks GENERAL: This is a well-nourished, well-developed patient, in no apparent distress. CARDIOVASCULAR: Normal rate and regular rhythm without murmurs, gallops, or rubs. RESPIRATORY: Good respiratory efforts. Breath sounds equal and clear to auscultation bilaterally. MUSCULOSKELETAL: Patient endorse tenderness to palpation over lumbar area. NEURO: Alert & Oriented x4 to person, place, time, situation. Moves all ext x4 A/P Problem List: (1) Osteomyelitis of lumbar spine ICD Code: M46.26 - Osteomyelitis of vertebra, lumbar region Status: Acute (2) Discitis ICD Code: M46.40 - Discitis, unspecified, site unspecified Status: Acute (3) Epidural abscess ICD Code: G06.2 - Extradural and subdural abscess, unspecified Status: Acute (4) Tobacco abuse ICD Code: Z72.0 - Tobacco use (5) IVDU (intravenous drug user) ICD Code: F19.90 - Other psychoactive substance use, unspecified, uncomplicated Assessment and Plan 42-year-old man with Osteomyelitis of lumbar spine Lumbar spine MRI noted Neurosurgery consulted on the patient. Per Dr. Calderón, not a surgical case and recommends antibiotics. Appreciate ID following. On vancomycin and Zosyn currently. Status post CT-guided aspiration/biopsy. Follow cultures. Blood cultures so far negative. Transthoracic echo did not report vegetations. Percocet as needed for pain. No objective evidence that he requires IV pain medications. Seems comfortable in bed. Tobacco abuse Tobacco counseling cessation provided nicotine patch IVDU Counseling cessation provided 2D echo reports trace tricuspid valve regurgitation. No mention of vegetation. Given blood cultures are negative. Will defer REBECCA for now. Normochromic normocytic anemia of chronic disease H&H stable, continue to monitor CBC DVT prophylaxis: Heparin Problem Qualifiers (1) Discitis: Qualified Codes: M46.46 - Discitis, unspecified, lumbar region Vandana Villegas MD January 27, 2018 11:56
[2018-01-27 12:00] VITALS: BP 127/75; PULSE 51; RESP 18; TEMP 98; O2SAT 99
[2018-01-27 16:00] VITALS: BP_SYST 163; BP_SYST 96; BP_SYST 98; BP_DIAS 51; BP_DIAS 79; PULSE 54; PULSE 80; RESP 18; TEMP 100; TEMP 98; O2SAT 96; O2SAT 97
[2018-01-27 20:00] VITALS: BP 112/57; PULSE 70; RESP 16; TEMP 99.3; O2SAT 95
[2018-01-28] VITALS: BP 110/59; PULSE 69; RESP 16; TEMP 99; O2SAT 96
[2018-01-28] MEDS: PIPERACIL-TAZO 3.375 GM PREMIX 50 ML IV SCH ×2 (01:27→10:00)
[2018-01-28] MEDS: oxyCODONE/ACETAMINOPHEN 5 MG/325 MG TAB PO PRN ×2 (01:27→06:15)
[2018-01-28] MEDS: HEPARIN SODIUM - SQ 10,000 UNITS/ML VIAL SQ SCH (03:00)
[2018-01-28] MEDS: VANCOMYCIN INJ 1,150 MG in SODIUM CHLOR 0.9% 250 ML INJ 250 ML IV SCH (04:30)
[2018-01-28 06:00] VITALS: BP 130/72; PULSE 63; RESP 16; TEMP 98.3; O2SAT 96
--- NOTE | 2018-01-28 07:49 | RADRPT ---
EXAM DATE: 01/24/2018 7:05 PM EDT AGE/SEX: 42 years / Male INDICATIONS: Patient presents with lumbar osteomyelitis and discitis in need of vertebral body biops y for culture. CLINICAL DATA: This is the patient's initial encounter. Patient reports that signs and symptoms have been present for 1 day and indicates a pain score of 7/10. MEDICAL/SURGICAL HISTORY: . IVDUTobacco abuseVSDOsteomyelitis of lumbar spineEpidural abscessDi scitis . N/A COMPARISON: No prior [facility] exams available for comparison. FLUORO TIME (min): 1.5 IMAGE SERIES: 1 SEDATION TIME (min): 45 MEDICATION(S): 5 MG midazolam (Versed) IV 250 MCG fentanyl (Sublimaze) IV DEVICE(s): 11 gauge bone biopsy needle SPECIMEN(S): Core specimen(s) obtained and submitted to laboratory for pathologic evaluation. . . PROCEDURE : 1. Fluoroscopically guided needle biopsy of L2 vertebral body. 2. Conscious sedation with continuous EKG and Oximetry monitoring. The risks, benefits and alternatives to the procedure were explained and verbal and written consent w as obtained. The site was prepped in sterile fashion. Full sterile technique was used, including cap, mask, steri le gloves and gown and a large sterile sheet. Hand hygiene and 2% chlorhexidine and/or betadine/alco hol prep was utilized per protocol for cutaneous antisepsis. The skin and subcutaneous tissues were infiltrated with local anesthetic solution. With fluoroscopic guidance an 11-gauge trocar needle was advanced via left transpedicular approach in to the L2 vertebral body. Two 11-gauge core biopsies were then obtained. Both specimens were submitte d for laboratory analysis per request. Conscious sedation was performed with the prescribed dosages and duration as above in the presence of an independent trained radiology nurse to assist in the monitoring of the patient. EKG and oximetry remained stable throughout the procedure. CONCLUSION: 1. Uncomplicated needle biopsy of the L2 vertebral body as above. Electronically signed by: Heladio Berkowitz MD 01/28/2018 7:48 AM EDT
[2018-01-28 08:00] VITALS: BP 136/73; PULSE 58; RESP 15; TEMP 98.7; O2SAT 99
[2018-01-28] MEDS: REMOVE OLD PATCH T-DERMAL SCH (09:00)
[2018-01-28] MEDS: NICOTINE 21 MG/24 HR PATCH T-DERMAL SCH (09:00)
[2018-01-28] MEDS: SODIUM CHLORIDE 0.9% FLUSH 10 ML FLUSH IV FLUSH SCH (10:01)
--- NOTE | 2018-01-28 10:59 | HHI.PR ---
Addendum to Inpatient Note Addendum Reason: Additional Documentation Additional Information Unfortunately I was advised by the nurse the patient left the hospital AGAINST MEDICAL ADVICE. Vandana Villegas MD January 28, 2018 10:59
--- NOTE | 2018-01-28 11:02 | HHI.DS ---
Discharge Summary Admission Date January 23, 2018 at 02:46 Discharge Date: January 28, 2018 Admitting Diagnosis Lumbar osteomyelitis, discitis and epidural abscess (1) Osteomyelitis of lumbar spine ICD Code: M46.26 - Osteomyelitis of vertebra, lumbar region Status: Acute (2) Discitis ICD Code: M46.40 - Discitis, unspecified, site unspecified Status: Acute (3) Epidural abscess ICD Code: G06.2 - Extradural and subdural abscess, unspecified Status: Acute (4) Tobacco abuse ICD Code: Z72.0 - Tobacco use (5) IVDU (intravenous drug user) ICD Code: F19.90 - Other psychoactive substance use, unspecified, uncomplicated Procedures CT-guided biopsy Brief History - From Admission HPI from the admitting physician 42-year-old male with past medical history of previously treated lumbar spine osteomyelitis dating back 2009, current IVDU presented to the ED for worsening low back pain 4 weeks duration rated over 10 in intensity worse with standing and bending however without any bladder or bowel dysfunction. Patient also denies any febrile episode. 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 Otherwise patient denies any reported GI bleed, chest pain or shortness of breath. CBC/BMP: 01/24/18 0821 Significant Findings Laboratory Tests Test 01/25/18 21:13 01/27/18 04:34 01/28/18 06:00 Vancomycin Level Trough 10.6 MCG/ML (5.0-10.0) 12.7 MCG/ML (5.0-10.0) Erythrocyte Sedimentation Rate 66 mm/hr (0-15) Imaging Last Impressions Needle Biopsy X-Ray 01/24/18 0000 Signed Impressions: CONCLUSION: 1. Uncomplicated needle biopsy of the L2 vertebral body as above. Lumbar Spine MRI 01/23/18 0000 Signed Impressions: CONCLUSION: 1. Marrow edema and abnormal enhancement involving the inferior portion of the L1 vertebral body as well as the L2 and L3 vertebral bodies most characteristi c of osteomyelitis. There is also enhancement portion of the L2-3 disc space co nsistent with discitis. 2. Abnormal enhancement along the anterior and lateral epidural space at the L 2 and L3 levels as well as along the posterior disc margin at L2-3 characterist ic of a small anterior epidural abscess. 3. 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 Thoracic Spine MRI 01/22/18 0000 Signed Impressions: CONCLUSION: 1. Small posterior central disc protrusion at the T8-9 level with slight darius ening of the anterior thecal sac. 2. The study is otherwise unremarkable with no abnormal enhancement or evidenc e to suggest osteomyelitis in the thoracic spine. PE at Discharge Patient left AMA Pt update on day of discharge Patient left AMA prior to being seen Hospital Course 42-year-old man with admitted for osteomyelitis of the lumbar spine. Patient was undergoing treatment and left the hospital AGAINST MEDICAL ADVICE. Osteomyelitis of lumbar spine Lumbar spine MRI noted Neurosurgery consulted on the patient. Per Dr. Calderón, not a surgical case and recommends antibiotics. Appreciate ID following. On vancomycin and Zosyn currently. Status post CT-guided aspiration/biopsy. Follow cultures. Blood cultures so far negative. Transthoracic echo did not report vegetations. Percocet as needed for pain. No objective evidence that he requires IV pain medications. Seems comfortable in bed. Tobacco abuse Tobacco counseling cessation provided nicotine patch IVDU Counseling cessation provided 2D echo reports trace tricuspid valve regurgitation. No mention of vegetation. Given blood cultures are negative. defer REBECCA for now. Normochromic normocytic anemia of chronic disease H&H stable, continue to monitor CBC Pt Condition on Discharge: Stable Discharge Disposition: Discharge Home Discharge Time: <= 30 minutes Vandana Villegas MD January 28, 2018 11:02
== END 2018-01-28 11:09 | disposition home or self-care (01) | DRG 477 ==
LOC: PHEFT 21:19 → PHEDA 01-23 02:46 → N05B 01-23 18:28
PROVIDERS: ADMIT Family Medicine; ATTEND Family Medicine
PROC: 0QB03ZX Excision of Lumbar Vertebra, Percutaneous Approach, Diagnostic (ICD-10-PCS; principal; 2018-01-24)
DX: M46.26 Osteomyelitis of vertebra, lumbar region (principal); G06.2 Extradural and subdural abscess, unspecified; M46.46 Discitis, unspecified, lumbar region; F19.90 Other psychoactive substance use, unspecified, uncomplicated; D63.8 Anemia in other chronic diseases classified elsewhere; Z79.2 Long term (current) use of antibiotics; Z72.0 Tobacco use; Z79.899 Other long term (current) drug therapy
CPT/HCPCS: 20225; 72157; 72158; 77003; 80053; 80202; 80307; 81001; 82565; 83605; 85025; 85610; 85652; 85730; 86140; 87015; 87040; 87070; 87102; 87116; 87176; 87205; 87206; 93306; 96374; 96375; 99152; 99153; A9579; J1170; J1644; J1885; J2250; J2543; J3010; J3370; J7040; J7050

== ENCOUNTER 2018-01-28 14:31 | Inpatient (IN) | payer SELFPAY ==
[~2018-01-28] VITALS: Ht 188 cm; Wt 90.0 kg
[~2018-01-28 14:31] MED LIST changes: -GADODIAMIDE PF 287 MG/ML 20 ML VIAL (for RAD MRI) IV PUSH ONE
[2018-01-28 14:56] VITALS: BP 132/68; PULSE 93; RESP 18; TEMP 98.8
[2018-01-28] MEDS ORDERED: PIPERACIL-TAZO 3.375 GM PREMIX 50 ML IV ONE (16:00)
--- NOTE | 2018-01-28 16:00 | PD ---
HPI Chief Complaint: Back/ Neck Pain or Injury Time Seen by Provider: 15:47 Travel History International Travel<30 days: No Contact w/Intl Traveler<30days: No Traveled to known affect area: No History of Present Illness HPI 42-year-old male presents to the emergency department for readmission for osteomyelitis the lumbar spine. Patient left AGAINST MEDICAL ADVICE this morning. He states he had some baking things that he had take care of a had to be there in person for. He states he is now coming back in for IV antibiotics. Patient reports 8/10 lower back pain without radiation. He had MRI which showed marrow edema and abnormal enhancement involving the inferior portion of the L1 vertebral body as well as the L2 and L3 vertebral bodies most characteristic of osteomyelitis, there is also enhancement portion of the L2-3 disc space consistent with discitis. Patient states he last used IV drugs approximately 1 month ago. He denies using them today. He denies any fevers or chills. No other symptoms or complaints. Moderate severity. PFSH Past Medical History Blood Disorders: No Cancer: No Cardiovascular Problems: Yes (VSD) Chest Pain: No Endocrine: No Genitourinary: No Immune Disorder: No Kidney Stones: No Musculoskeletal: Yes (osteomyelitis) Neurologic: No Psychiatric: No Reproductive: No Respiratory: No Past Surgical History Other Surgery: No Social History Alcohol Use: No Tobacco Use: Yes (2 PKS A DAY) Substance Use: No Allergies-Medications (Allergen,Severity, Reaction): Coded Allergies: No Known Allergies (Verified Allergy, Unknown, 01/28/18) Reported Meds & Prescriptions Reported Meds & Active Scripts Active Keflex (Cephalexin) 500 Mg Cap 500 Mg PO Q8H Bactrim DS (Sulfamethoxazole-Trimethoprim) 800-160 Mg Tab 1 Tab PO BID Naproxen 500 Mg Tab 500 Mg PO BID 10 Days Keflex (Cephalexin) 500 Mg Cap 500 Mg PO Q6H 10 Days Bactrim DS (Sulfamethoxazole-Trimethoprim) 800-160 Mg Tab 1 Tab PO BID 10 Days Review of Systems Except as stated in HPI: all other systems reviewed are Neg Physical Exam Narrative GENERAL: Well-nourished, well-developed male patient, ambulatory. Afebrile. SKIN: Focused skin assessment warm/dry. HEAD: Normocephalic. Atraumatic. EYES: No scleral icterus. No injection or drainage. NECK: Supple, trachea midline. No JVD or lymphadenopathy. CARDIOVASCULAR: Regular rate and rhythm without murmurs, gallops, or rubs. Bilateral radial and pedal pulses are 2+. RESPIRATORY: Breath sounds equal bilaterally. No accessory muscle use. Lung sounds are clear to auscultation. GASTROINTESTINAL: Abdomen soft, non-tender, nondistended. MUSCULOSKELETAL: No cyanosis, or edema. BACK: Nontender without obvious deformity. No CVA tenderness. Data Data Last Documented VS Vital Signs Date Time Temp Pulse Resp B/P (MAP) Pulse Ox O2 Delivery O2 Flow Rate FiO2 01/28/18 14:56 98.8 93 18 132/68 (89) Orders Orders Complete Blood Count With Diff (01/28/18 15:55) Basic Metabolic Panel (Bmp) (01/28/18 15:55) Piperacil-Tazo 3.375 Gm Premix (Zosyn 3. (01/28/18 16:00) Admit Order (Ed Use Only) (01/28/18 16:44) Labs Laboratory Tests Test 01/28/18 16:21 [facility] Medical Decision Making Medical Screen Exam Complete: Yes Emergency Medical Condition: Yes Medical Record Reviewed: Yes Differential Diagnosis Osteomyelitis versus discitis versus IV drug use Narrative Course 42-year-old male presents to the emergency department for readmission after he left AGAINST MEDICAL ADVICE this morning. He was admitted for osteomyelitis, discitis of the lumbar spine. It appears that the patient received his vancomycin this morning. However, he did not receive his dose of Vanco that was due at 10 AM. CBC, BMP are ordered and pending. Patient is given Zosyn 3.375 g IV. [facility] is paged for admission. Dr. De Jesus accepted admission. Diagnosis Primary Impression: Osteomyelitis of lumbar spine Additional Impression: Discitis of lumbar region Admitting Information Admitting Physician Requests: Admit Faby Velasquez January 28, 2018 16:00
[2018-01-28 16:57] LABS: AUTOMATED NEUTROPHIL # 6.8 TH/MM3 (1.8-7.7); BASOPHIL % 0.3 % (0.0-2.0); EOSINOPHIL # 0.1 TH/MM3 (0-0.4); EOSINOPHIL % 0.7 % (0.0-4.0); HEMATOCRIT 38.7 % (39.0-51.0); HEMOGLOBIN 13.5 GM/DL (13.0-17.0); LYMPHOCYTE # 0.7 TH/MM3 (1.0-4.8); MEAN CELL VOLUME 81.9 FL (80.0-100.0); MEAN CORPUSCULAR HEMOGLOBIN 28.6 PG (27.0-34.0); MEAN CORPUSCULAR HGB CONC 34.9 % (32.0-36.0); MEAN PLATELET VOLUME 6.8 FL (7.0-11.0); MONO % 10.6 % (0.0-8.0); MONOCYTE # 0.9 TH/MM3 (0-0.9); NEUT % 80.4 % (16.0-70.0); PLATELET COUNT 324 TH/MM3 (150-450); RED BLOOD COUNT 4.72 MIL/MM3 (4.50-5.90); RED CELL DISTRIBUTION WIDTH 13.5 % (11.6-17.2); WHITE BLOOD COUNT 8.4 TH/MM3 (4.0-11.0)
[2018-01-28] MEDS ORDERED: Vancomycin Consult Pharmacy 1 EA OTHER SCH (17:00)
[2018-01-28] MEDS ORDERED: VANCOMYCIN INJ 1,000 MG in SODIUM CHLOR 0.9% 250 ML INJ 250 ML IV SCH ×2 (17:00→21:00)
[2018-01-28] MEDS ORDERED: SODIUM CHLORIDE 0.9% FLUSH 10 ML FLUSH IV FLUSH PRN (17:00)
[2018-01-28] MEDS ORDERED: BISACODYL 10 MG SUPP RECTAL PRN (17:00)
[2018-01-28] MEDS ORDERED: METOCLOPRAMIDE HCL 10 MG/2 ML VIAL IV PUSH PRN (17:00)
[2018-01-28] MEDS ORDERED: MAGNESIUM HYDROXIDE SUSP 30 ML CUP PO PRN (17:00)
[2018-01-28] MEDS ORDERED: NALOXONE HCL 0.4 MG/ML AMP IV PUSH PRN (17:00)
[2018-01-28] MEDS ORDERED: ACETAMINOPHEN 325 MG TAB PO PRN (17:00)
[2018-01-28] MEDS ORDERED: LACTULOSE SYRUP 20 GM/30 ML CUP PO PRN (17:00)
[2018-01-28] MEDS: SODIUM CHLOR 0.9% 1000 ML INJ 1,000 ML IV SCH (17:00)
[2018-01-28] MEDS ORDERED: SENNOSIDES 8.6 MG TAB PO PRN (17:00)
[2018-01-28 17:06] LABS: BICARBONATE 29.6 MEQ/L (21.0-32.0); CALCIUM 9.3 MG/DL (8.5-10.1); CREATININE 0.86 MG/DL (0.60-1.30)
--- NOTE | 2018-01-28 17:23 | HHI.HP ---
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 Patient also denies any febrile episode. 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 Otherwise patient denies any reported GI bleed, chest pain or shortness of breath. Patient left AMA in the morning and returned later today. Review of Systems Except as stated in HPI: all other systems reviewed are Neg Past Family Social History Past Medical History Osteomyelitis Past Surgical History No surgical history Reported Medications Reported Meds & Active Scripts Active Keflex (Cephalexin) 500 Mg Cap 500 Mg PO Q8H Bactrim DS (Sulfamethoxazole-Trimethoprim) 800-160 Mg Tab 1 Tab PO BID Naproxen 500 Mg Tab 500 Mg PO BID 10 Days Keflex (Cephalexin) 500 Mg Cap 500 Mg PO Q6H 10 Days Bactrim DS (Sulfamethoxazole-Trimethoprim) 800-160 Mg Tab 1 Tab PO BID 10 Days Allergies: Coded Allergies: No Known Allergies (Verified Allergy, Unknown, 01/28/18) Family History Denies any family history of heart disease, diabetes, hypertension Social History Alcohol Use: No Tobacco Use: Yes (2 PKS A DAY) Substance Use: Heroine, methamphetamine, last use 1 month ago Physical Exam Vital Signs Vital Signs Date Time Temp Pulse Resp B/P (MAP) Pulse Ox O2 Delivery O2 Flow Rate FiO2 01/28/18 14:56 98.8 93 18 132/68 (89) Physical Exam GENERAL: This is a well-nourished, well-developed patient, in no apparent distress. SKIN: No rashes, ecchymoses or lesions. Cool and dry. HEAD: Atraumatic. Normocephalic. No temporal or scalp tenderness. EYES: Pupils equal round and reactive. Extraocular motions intact. No scleral icterus. No injection or drainage. ENT: Nose without bleeding, purulent drainage or septal hematoma. Throat without erythema, tonsillar hypertrophy or exudate. Uvula midline. Airway patent. NECK: Trachea midline. No JVD or lymphadenopathy. Supple, nontender, no meningeal signs. CARDIOVASCULAR: Regular rate and rhythm without murmurs, gallops, or rubs. RESPIRATORY: Clear to auscultation. Breath sounds equal bilaterally. No wheezes , rales, or rhonchi. GASTROINTESTINAL: Abdomen soft, non-tender, nondistended. No hepato-splenomegaly , or palpable masses. No guarding. MUSCULOSKELETAL: Extremities without clubbing, cyanosis, or edema. No joint tenderness, effusion, or edema noted. No calf tenderness. Negative Homans sign bilaterally. NEUROLOGICAL: Awake and alert. Cranial nerves II through XII intact. Motor and sensory grossly within normal limits. Five out of 5 muscle strength in all muscle groups. Normal speech. Laboratory Laboratory Tests Test 01/28/18 16:21 White Blood Count 8.4 Red Blood Count 4.72 Hemoglobin 13.5 Hematocrit 38.7 Mean Corpuscular Volume 81.9 Mean Corpuscular Hemoglobin 28.6 Mean Corpuscular Hemoglobin Concent 34.9 Red Cell Distribution Width 13.5 Platelet Count 324 Mean Platelet Volume 6.8 Neutrophils (%) (Auto) 80.4 Lymphocytes (%) (Auto) 8.0 Monocytes (%) (Auto) 10.6 Eosinophils (%) (Auto) 0.7 Basophils (%) (Auto) 0.3 Neutrophils # (Auto) 6.8 Lymphocytes # (Auto) 0.7 Monocytes # (Auto) 0.9 Eosinophils # (Auto) 0.1 Basophils # (Auto) 0.0 CBC Comment DIFF FINAL Differential Comment Blood Urea Nitrogen 14 Creatinine 0.86 Random Glucose 89 Calcium Level 9.3 Sodium Level 135 Potassium Level 5.0 Chloride Level 100 Carbon Dioxide Level 29.6 Anion Gap 5 Estimat Glomerular Filtration Rate 98 Result Diagram: 01/28/18 1621 01/28/18 1621 Caprini VTE Risk Assessment Caprini VTE Risk Assessment: Mod/High Risk (score >= 2) Caprini Risk Assessment Model Point Value = 1 Point Value = 2 Point Value = 3 Point Value = 5 Age 41-60 Minor surgery BMI > 25 kg/m2 Swollen legs Varicose veins or History of unexplained or recurrent spontaneous Oral contraceptives or hormone replacement Sepsis (< 1 month) Serious lung disease, including pneumonia (< 1 month) Abnormal pulmonary function Acute myocardial infarction Congestive heart failure (< 1 month) History of inflammatory bowel disease Medical patient at bed rest Age 61-74 Arthroscopic surgery Major open surgery (> 45 min) Laparoscopic surgery (> 45 min) Malignancy Confined to bed (> 72 hours) Immobilizing plaster cast Central venous access Age >= 75 History of VTE Family history of VTE Factor V Leiden Prothrombin 24158A Lupus anticoagulant Anticardiolipin antibodies Elevated serum homocysteine Heparin-induced thrombocytopenia Other congenital or acquired thrombophilia Stroke (< 1 month) Elective arthroplasty Hip, pelvis, or leg fracture Acute spinal cord injury (< 1 month) Prophylaxis Regimen Total Risk Factor Score Risk Level Prophylaxis Regimen 0-1 Low Early ambulation 2 Moderate Order ONE of the following: *Sequential Compression Device (SCD) *Heparin 5000 units SQ BID 3-4 Higher Order ONE of the following medications: *Heparin 5000 units SQ TID *Enoxaparin/Lovenox 40 mg SQ daily (WT < 150 kg, CrCl > 30 mL/min) *Enoxaparin/Lovenox 30 mg SQ daily (WT < 150 kg, CrCl > 10-29 mL/min) *Enoxaparin/Lovenox 30 mg SQ BID (WT < 150 kg, CrCl > 30 mL/min) AND/OR *Sequential Compression Device (SCD) 5 or more Highest Order ONE of the following medications: *Heparin 5000 units SQ TID (Preferred with Epidurals) *Enoxaparin/Lovenox 40 mg SQ daily (WT < 150 kg, CrCl > 30 mL/min) *Enoxaparin/Lovenox 30 mg SQ daily (WT < 150 kg, CrCl > 10-29 mL/min) *Enoxaparin/Lovenox 30 mg SQ BID (WT < 150 kg, CrCl > 30 mL/min) AND *Sequential Compression Device (SCD) Assessment and Plan Assessment and Plan 42-year-old man with Osteomyelitis of lumbar spine Epidural abscess Lumbar spine MRI noted and reviewed by me with finding of osteomyelitis and epidural abscess Neurosurgery consultation pending for evaluation for possible incision and drainage of epidural abscess Infectious disease specialist consultation appreciate recs. Patient had lumbar biopsy, results pending Continue IV abx Zosyn and vancomycin IV Pending culture reports Secondary to patient history of IVDU, will check 2D echo to rule out endocarditis despite the absence of leukocytosis or febrile episode Bells for pain Polysubstance use. Counselled. Tobacco abuse Tobacco counseling cessation provided Start nicotine patch IVDU Counseling cessation provided Check 2D echo to rule out endocarditis Normochromic normocytic anemia of chronic disease - H&H stable, continue to monitor CBC DVT prophylaxis: Heparin Discussed Condition With patient, nurse Physician Certification 2 Midnight Certification Type: Admission for Inpatient Services Order for Inpatient Services The services are ordered in accordance with Medicare regulations or non- Medicare payer requirements, as applicable. In the case of services not specified as inpatient-only, they are appropriately provided as inpatient services in accordance with the 2-midnight benchmark. Estimated LOS (days): 3 days is the estimated time the patient will need to remain in the hospital, assuming treatment plan goals are met and no additional complications. Post-Hospital Plan: Home Ambar De Jesus MD January 28, 2018 17:23
[2018-01-28] MEDS: ENOXAPARIN SODIUM 40 MG/0.4 ML SYRINGE SQ SCH (18:02)
[2018-01-28] MEDS: ACETAMINOPHEN/HYDROcodone 325 MG/5 MG TAB PO PRN ×2 (18:02→21:57)
[2018-01-28 20:00] VITALS: BP 126/65; PULSE 66; RESP 20; TEMP 99.5; O2SAT 96
[2018-01-28] MEDS: DOCUSATE SODIUM 50 MG/SENNA 8.6 MG TAB PO SCH (21:00)
[2018-01-28] MEDS: SODIUM CHLORIDE 0.9% FLUSH 10 ML FLUSH IV FLUSH SCH (21:57)
[2018-01-28] MEDS: VANCOMYCIN INJ 1,150 MG in SODIUM CHLOR 0.9% 250 ML INJ 250 ML IV SCH (21:57)
[2018-01-28] MEDS: PIPERACIL-TAZO 4.5 GM PREMIX 100 ML IV SCH (23:35)
[2018-01-29] VITALS (8 sets, daily range): BP systolic 125–136; BP diastolic 59–74; PULSE 56–72; RESP 16–18; TEMP 98.1–98.9; O2SAT 91–98
[2018-01-29] MEDS: SODIUM CHLOR 0.9% 1000 ML INJ 1,000 ML IV SCH ×3 (03:00→14:36)
[2018-01-29] MEDS: VANCOMYCIN INJ 1,150 MG in SODIUM CHLOR 0.9% 250 ML INJ 250 ML IV SCH ×2 (04:25→12:34)
[2018-01-29] MEDS: PIPERACIL-TAZO 4.5 GM PREMIX 100 ML IV SCH ×2 (05:00→11:21)
[2018-01-29 08:24] LABS: AUTOMATED NEUTROPHIL # 4.2 TH/MM3 (1.8-7.7); BASOPHIL % 0.6 % (0.0-2.0); EOSINOPHIL # 0.1 TH/MM3 (0-0.4); EOSINOPHIL % 1.7 % (0.0-4.0); HEMATOCRIT 34.5 % (39.0-51.0); HEMOGLOBIN 11.9 GM/DL (13.0-17.0); LYMPH % 17.3 % (9.0-44.0); LYMPHOCYTE # 1.1 TH/MM3 (1.0-4.8); MEAN CELL VOLUME 81.2 FL (80.0-100.0); MEAN CORPUSCULAR HEMOGLOBIN 27.9 PG (27.0-34.0); MEAN CORPUSCULAR HGB CONC 34.4 % (32.0-36.0); MEAN PLATELET VOLUME 6.7 FL (7.0-11.0); MONO % 15.4 % (0.0-8.0); PLATELET COUNT 292 TH/MM3 (150-450); RED BLOOD COUNT 4.25 MIL/MM3 (4.50-5.90); RED CELL DISTRIBUTION WIDTH 13.4 % (11.6-17.2); WHITE BLOOD COUNT 6.5 TH/MM3 (4.0-11.0)
[2018-01-29] MEDS: SODIUM CHLORIDE 0.9% FLUSH 10 ML FLUSH IV FLUSH SCH ×2 (08:36→21:54)
[2018-01-29] MEDS: ACETAMINOPHEN/HYDROcodone 325 MG/5 MG TAB PO PRN ×4 (08:36→22:27)
[2018-01-29] MEDS: DOCUSATE SODIUM 50 MG/SENNA 8.6 MG TAB PO SCH ×2 (08:36→21:00)
[2018-01-29 08:58] LABS: BICARBONATE 28.2 MEQ/L (21.0-32.0); CREATININE 0.89 MG/DL (0.60-1.30)
--- NOTE | 2018-01-29 12:34 | PD.CONS ---
History of Present Illness Service Infectious Disease Consult Requested By Dr Yousif De Jesus Reason for Consult Eval patient with lumbar discitis Primary Care Physician No Primary Care Physician Diagnoses: History of Present Illness Patient is a 42-year-old male, presented to the hospital with worsening low back pain which has been going on for about 4 weeks. He denies any bladder or bladder bowel dysfunction. He has not had any fever chills or sweats. Denies any respiratory complaint. Patient has known active IV drug use. He has a history of L1-L2 Serratia discitis for which he received a course of antibiotic therapy. He had another admission in 2010, and had an MRI again at that time which showed improvement in his findings. When he came to the hospital this time, MRI of the thoracic spine was done, and it is again showing enhancement of L1 and now as well as L2 and L3. He has not been febrile. His sed rate is elevated. Patient had bone biopsy of L2 and C/S came back negative. Patient however has received 2 doses of Vanco and Zosyn prior to the biopsy. He was off Abx only 24 hours when he had biopsy done. He had Hx Serratia discitis about 7 or 8 yeasr ago, treated and had followup MRI about 1 year after Rx which showed improvement. During that time, he denies IVDU. Patient has been using IV drugs. He was on Vanco and Zosyn, Signed out AMA to do some personal things. Came back same day. He is afebrile. HIs BC have been negative. Echo was ok. Infectious Disease consultation requested to continue with his Rx. Review of Systems Constitutional: DENIES: Fever, Chills, Night Sweats Eyes: DENIES: Eye pain Ears, nose, mouth, throat: DENIES: Nasal discharge, Oral lesions, Throat pain, Ear Pain, Running Nose, Sinus Pain, Toothache Respiratory: DENIES: Cough, Shortness of breath Cardiovascular: DENIES: Chest pain, Palpitations, Syncope, Dyspnea on Exertion Gastrointestinal: DENIES: Abdominal pain, Constipation, Diarrhea, Nausea, Vomiting, Difficulty Swallowing Genitourinary: DENIES: Urgency, Hematuria, Dysuria Musculoskeletal: COMPLAINS OF: Back pain, DENIES: Neck pain Integumentary: DENIES: Pruritus, Rash Hematologic/lymphatic: DENIES: Lymphadenopathy Neurologic: DENIES: Headache, Localized weakness Psychiatric: DENIES: Depression Past Family Social History Allergies: Coded Allergies: No Known Allergies (Verified Allergy, Unknown, 01/28/18) Past Medical History L1L2 Serratia discitis Rx in 2009 Hx VSD Past Surgical History NOne Active Ordered Medications Current Medications Medications (Trade) Dose Ordered Sig/Rosanna Route Start Time Stop Time Status Last Admin Sodium Chloride 1,000 ml @ 100 mls/hr Q10H IV 01/28/18 17:00 (NS Flush) 2 ml UNSCH PRN IV FLUSH 01/28/18 17:00 (NS Flush) 2 ml BID IV FLUSH 01/28/18 21:00 01/29/18 08:36 (Tylenol) 650 mg Q4H PRN PO 01/28/18 17:00 (Reglan Inj) 5 mg Q6H PRN IV PUSH 01/28/18 17:00 (Lovenox Inj) 40 mg Q24H SQ 01/28/18 18:00 01/28/18 18:02 (Narcan Inj) 0.4 mg UNSCH PRN IV PUSH 01/28/18 17:00 (Katrin-Colace) 1 tab BID PO 01/28/18 21:00 01/29/18 08:36 (Milk Of Magnesia Liq) 30 ml Q12H PRN PO 01/28/18 17:00 (Senokot) 17.2 mg Q12H PRN PO 01/28/18 17:00 (Dulcolax Supp) 10 mg DAILY PRN RECTAL 01/28/18 17:00 (Lactulose Liq) 30 ml DAILY PRN PO 01/28/18 17:00 Pharmacy Profile Note 0 ml @ 0 mls/hr UNSCH OTHER 01/28/18 17:00 Piperacillin Sod/ Tazobactam Sod 100 ml @ 200 mls/hr Q6H IV 01/28/18 23:00 01/29/18 11:21 ([place] 5-325 Mg) 1 tab Q4H PRN PO 01/28/18 17:00 01/29/18 08:36 Vancomycin HCl 1150 mg/Sodium Chloride 261.5 ml @ 261.5 mls/ hr Q8H IV 01/28/18 20:00 01/29/18 04:25 ([facility] Ordered Lab Info) SPECIFIC LAB TO BE ... ONCE ONCE .XX 01/29/18 19:45 01/29/18 19:46 Family History Non-contributory Social History Smokes 1/2 ppd No ETOH abuse IVDU - methamphetamine, heroine Physical Exam Vital Signs Vital Signs Date Time Temp Pulse Resp B/P (MAP) Pulse Ox O2 Delivery O2 Flow Rate FiO2 01/29/18 11:55 98.5 56 18 133/60 (84) 97 01/29/18 09:47 98 21 01/29/18 08:00 98.1 72 18 131/74 (93) 91 01/29/18 04:00 98.5 61 18 125/59 (81) 95 01/29/18 00:00 98.2 65 18 136/60 (85) 95 01/28/18 20:00 99.5 66 20 126/65 (85) 96 01/28/18 14:56 98.8 93 18 132/68 (89) Physical Exam GENERAL: Patient is a well-nourished, well-developed male, awake and alert, not in respiratory distress. SKIN: Warm and dry. No generalized rash, no ecchymoses and no evidence of embolic lesions. HEAD: Atraumatic. Normocephalic. No temporal wasting, or tenderness. EYES: [place] conjunctiva. No petechia or hemorrhage. Pupils equal, round and reactive to light. Extraocular movements full and intact. No scleral icterus. No injection or drainage. EARS, NOSE AND THROAT: Nose without bleeding or purulent nasal discharge. No sinus tenderness. Mucous membranes pink and moist. No oral lesions noted. No exudate. No oral thrush. NECK: Trachea midline. Supple and not tender, no meningeal signs CARDIOVASCULAR: Regular rate and rhythm. Has systolic murmur apex. RESPIRATORY: Clear to auscultation. Breath sounds equal bilaterally. No rales , wheezing or rhonchi ABDOMEN: Soft, non-tender, nondistended. Bowel sounds present and normoactive. No guarding. No rebound. No organomegaly. EXTREMITIES: No clubbing, cyanosis, or edema.No joint effusion, has good ROM. No calf tenderness. Well perfused and warm. NEUROLOGICAL: Awake and alert. Cranial nerves grossly intact. Motor grossly within normal limits. PSYCHIATRIC: Normal affect, calm and cooperative. LINE: No evidence of infection Laboratory Laboratory Tests Test 01/28/18 16:21 5/30/18 07:24 White Blood Count 8.4 6.5 Red Blood Count 4.72 4.25 Hemoglobin 13.5 11.9 Hematocrit 38.7 34.5 Mean Corpuscular Volume 81.9 81.2 Mean Corpuscular Hemoglobin 28.6 27.9 Mean Corpuscular Hemoglobin Concent 34.9 34.4 Red Cell Distribution Width 13.5 13.4 Platelet Count 324 292 Mean Platelet Volume 6.8 6.7 Neutrophils (%) (Auto) 80.4 65.0 Lymphocytes (%) (Auto) 8.0 17.3 Monocytes (%) (Auto) 10.6 15.4 Eosinophils (%) (Auto) 0.7 1.7 Basophils (%) (Auto) 0.3 0.6 Neutrophils # (Auto) 6.8 4.2 Lymphocytes # (Auto) 0.7 1.1 Monocytes # (Auto) 0.9 1.0 Eosinophils # (Auto) 0.1 0.1 Basophils # (Auto) 0.0 0.0 CBC Comment DIFF FINAL DIFF FINAL Differential Comment Blood Urea Nitrogen 14 11 Creatinine 0.86 0.89 Random Glucose 89 94 Calcium Level 9.3 9.0 Sodium Level 135 138 Potassium Level 5.0 4.2 Chloride Level 100 102 Carbon Dioxide Level 29.6 28.2 Anion Gap 5 8 Estimat Glomerular Filtration Rate 98 94 Result Diagram: 01/29/18 0701/29/18 07 Assessment and Plan Assessment and Plan IMPRESSION L1-L3 discitis - C/S negative; ?due to prior Abx. ?recurrent Serratia - Hx Serratia discitis 2010 Known IVDU RECOMMENDATION Change Abx to Rocephin - treat as recurrent Serratia discitis/osteomyelitis Labs weekly while on Abx: CBC, creat, LFT Pain control Monitor progress Thank you for this consultation Melisa Lama MD January 29, 2018 12:34
[2018-01-29] MEDS: cefTRIAXone INJ 2,000 MG in SODIUM CHLORIDE 0.9% INJ 100 ML IV SCH (14:29)
--- NOTE | 2018-01-29 15:32 | HHI.PR ---
Subjective Remarks Patient reports he is feeling okay. Still report back pain. States he had to leave the hospital yesterday AMA because he had to [place] a check. Objective Vitals Vital Signs Date Time Temp Pulse Resp B/P (MAP) Pulse Ox O2 Delivery O2 Flow Rate FiO2 01/29/18 11:55 98.5 56 18 133/60 (84) 97 01/29/18 09:47 98 21 01/29/18 08:00 98.1 72 18 131/74 (93) 91 01/29/18 04:00 98.5 61 18 125/59 (81) 95 01/29/18 00:00 98.2 65 18 136/60 (85) 95 01/28/18 20:00 99.5 66 20 126/65 (85) 96 I/O 01/28/18 01/28/18 01/28/18 01/29/18 01/29/18 01/29/18 07:00 15:00 23:00 07:00 15:00 23:00 Intake Total 50 ml 100 ml Balance 50 ml 100 ml Intake IV Total 50 ml 100 ml # Voids 2 3 Result Diagram: 01/29/1872301/29/18723 Objective Remarks GENERAL: This is a well-nourished, well-developed patient, in no apparent distress. CARDIOVASCULAR: Normal rate and regular rhythm without murmurs, gallops, or rubs. RESPIRATORY: Good respiratory efforts. Breath sounds equal and clear to auscultation bilaterally. MUSCULOSKELETAL: Patient endorse tenderness to palpation over lumbar area. NEURO: Alert & Oriented x4 to person, place, time, situation. Moves all ext x4 A/P Assessment and Plan 42-year-old man with Osteomyelitis of lumbar spine: Patient left the hospital AMA on 01/28/18 and returned the same day in the evening. Stating he had to go [place] a check. Lumbar spine MRI noted Neurosurgery consulted on the patient. Per Dr. Calderón, not a surgical case and recommends antibiotics. ID reconsulted. Vancomycin and Zosyn discontinued. Patient started on Rocephin. Status post CT-guided aspiration/biopsy. Cultures so far negative. Blood cultures so far negative. Transthoracic echo did not report vegetations. Echo as needed for pain. No objective evidence that he requires IV pain medications. Seems comfortable, ambulating. Tobacco abuse Tobacco counseling cessation provided nicotine patch IVDU Counseling cessation provided 2D echo reports trace tricuspid valve regurgitation. No mention of vegetation. Given blood cultures are negative. Will defer REBECCA for now. DVT prophylaxis: Vandana Seymour MD January 29, 2018 15:32
[2018-01-29] MEDS: ENOXAPARIN SODIUM 40 MG/0.4 ML SYRINGE SQ SCH (17:29)
[2018-01-29] MEDS ORDERED: PHARMACY ORDERED LAB ONE (19:45)
[2018-01-30] VITALS (9 sets, daily range): BP systolic 120–135; BP diastolic 60–76; PULSE 51–79; RESP 16–20; TEMP 97.4–98.3; O2SAT 96–99
[2018-01-30] MEDS: ACETAMINOPHEN/HYDROcodone 325 MG/5 MG TAB PO PRN ×5 (05:37→20:53)
[2018-01-30] MEDS: SODIUM CHLORIDE 0.9% FLUSH 10 ML FLUSH IV FLUSH SCH ×2 (08:36→20:53)
[2018-01-30] MEDS: DOCUSATE SODIUM 50 MG/SENNA 8.6 MG TAB PO SCH ×2 (09:00→20:52)
[2018-01-30] MEDS: cefTRIAXone INJ 2,000 MG in SODIUM CHLORIDE 0.9% INJ 100 ML IV SCH (13:17)
--- NOTE | 2018-01-30 15:29 | HHI.PR ---
Subjective Remarks Patient reported his back pain is 9 out of 10 he requested to increase his pain medication Denied any fever or chills Objective Vitals Vital Signs Date Time Temp Pulse Resp B/P (MAP) Pulse Ox O2 Delivery O2 Flow Rate FiO2 01/30/18 14:52 97 21 01/30/18 12:00 97.9 51 20 134/65 (88) 97 01/30/18 10:00 16 01/30/18 08:36 97.8 58 20 135/76 (95) 96 01/30/18 05:15 98.3 69 18 120/69 (86) 99 01/30/18 04:45 98.3 69 18 120/69 (86) 99 01/30/18 00:00 97.6 64 16 125/65 (85) 98 01/29/18 21:45 98.9 64 16 134/63 (86) 98 01/29/18 17:37 98 21 01/29/18 16:00 98.4 66 18 132/74 (93) 98 I/O 01/29/18 01/29/18 01/29/18 01/30/18 01/30/18 01/30/18 07:00 15:00 23:00 07:00 15:00 23:00 Intake Total 400 ml 1000 ml 2000 ml 100 ml Output Total 2100 ml Balance 400 ml 1000 ml -100 ml 100 ml Intake Oral 1000 ml 2000 ml IV Total 400 ml 100 ml Output Urine Total 2100 ml # Voids 2 3 1 # Bowel Movements 0 0 Result Diagram: 01/29/18 0724 01/29/18 0724 Objective Remarks GENERAL: This is a well-nourished, well-developed patient, in no apparent distress. CARDIOVASCULAR: RRR, no gallops, or rubs. RESPIRATORY: Fair air entry bilaterally. No W, R, or R GASTROINTESTINAL: Abdomen soft, non-tender, nondistended. Positive bowel sounds MUSCULOSKELETAL: Extremities without clubbing, cyanosis, or edema. Pedal pulses appreciated NEUROLOGICAL: Awake and alert. Moves all extremity. Normal speech.no focal neurological deficit A/P Assessment and Plan 42-year-old man with 01/30: Continue current care of the antibiotic, appreciate ID recommendation, monitor lab work while on antibiotic Osteomyelitis of lumbar spine: Patient left the hospital AMA on 01/28/18 and returned the same day in the evening. Stating he had to go [place] a check. Lumbar spine MRI noted Neurosurgery consulted on the patient. Per Dr. Calderón, not a surgical case and recommends antibiotics. ID reconsulted. Vancomycin and Zosyn discontinued. Patient started on Rocephin. Status post CT-guided aspiration/biopsy. Cultures so far negative. Blood cultures so far negative. Transthoracic echo did not report vegetations. [place] as needed for pain. No objective evidence that he requires IV pain medications. Seems comfortable, ambulating. Tobacco abuse Tobacco counseling cessation provided nicotine patch IVDU Counseling cessation provided 2D echo reports trace tricuspid valve regurgitation. No mention of vegetation. Given blood cultures are negative. Will defer REBECCA for now. DVT prophylaxis: Orlando Christopher MD January 30, 2018 15:29
[2018-01-30] MEDS: ENOXAPARIN SODIUM 40 MG/0.4 ML SYRINGE SQ SCH (17:15)
[2018-01-31 00:19] VITALS: BP 134/67; PULSE 76; RESP 20; TEMP 98.1; O2SAT 99
[2018-01-31] MEDS: ACETAMINOPHEN/HYDROcodone 325 MG/5 MG TAB PO PRN ×2 (01:19→15:24)
[2018-01-31 04:56] VITALS: BP 111/59; PULSE 64; RESP 18; TEMP 98.7; O2SAT 96
[2018-01-31 08:28] VITALS: BP 109/61; PULSE 92; RESP 20; TEMP 98.2; O2SAT 98
[2018-01-31 08:32] LABS: AUTOMATED NEUTROPHIL # 4.6 TH/MM3 (1.8-7.7); BASOPHIL % 0.5 % (0.0-2.0); EOSINOPHIL # 0.1 TH/MM3 (0-0.4); EOSINOPHIL % 1.7 % (0.0-4.0); HEMATOCRIT 33.9 % (39.0-51.0); HEMOGLOBIN 11.8 GM/DL (13.0-17.0); LYMPH % 14.3 % (9.0-44.0); LYMPHOCYTE # 0.9 TH/MM3 (1.0-4.8); MEAN CELL VOLUME 81.5 FL (80.0-100.0); MEAN CORPUSCULAR HEMOGLOBIN 28.4 PG (27.0-34.0); MEAN CORPUSCULAR HGB CONC 34.8 % (32.0-36.0); MEAN PLATELET VOLUME 6.9 FL (7.0-11.0); MONO % 13.5 % (0.0-8.0); MONOCYTE # 0.9 TH/MM3 (0-0.9); PLATELET COUNT 307 TH/MM3 (150-450); RED BLOOD COUNT 4.16 MIL/MM3 (4.50-5.90); RED CELL DISTRIBUTION WIDTH 13.5 % (11.6-17.2); WHITE BLOOD COUNT 6.6 TH/MM3 (4.0-11.0)
[2018-01-31 09:05] LABS: BICARBONATE 29.7 MEQ/L (21.0-32.0); CALCIUM 9.1 MG/DL (8.5-10.1); CREATININE 0.79 MG/DL (0.60-1.30)
[2018-01-31] MEDS: DOCUSATE SODIUM 50 MG/SENNA 8.6 MG TAB PO SCH (09:34)
--- NOTE | 2018-01-31 10:43 | HHI.FF ---
Infusion Therapy Location of Infusion Therapy: Ambulatory Infusion Therapy Order Patient Information Patient Weight 90 kg Diagnosis: Diagnosis Lumbar discitis Coded Allergies: No Known Allergies (Verified Allergy, Unknown, 01/28/18) Administer Medication Ceftriaxone 2 grams IV q 24 hours Stop Treatment: Mar 25, 2018 Additional Information Venous access: PICC Line Additional Instructions [x] Peripheral flush and dressing changes per protocol [x] Implanted port and central liner inserter: * Implanted port: 10 ml Normal Saline followed by 5 ml Heparin 100 units/ml Heparin flush after each use and monthly to maintain. [] May leave port accessed during therapy. [] May leave peripheral site accessed for duration of therapy. [x] If patient has SOB or respiratory distress, check oxygen saturation. If less than 90% or clinical signs of respiratory distress, administer oxygen at 2 L/min. via nasal cannula and notify physician. [x] Anaphylaxis/Reaction orders: * Stop infusion. * Keep IV line open with saline flush. * Notify physician. * Monitor vital signs every 15 minutes until symptoms resolve. * Check Oxygen saturation; Oxygen at 2 L/min. via nasal cannula if less than 90% or clinical signs of respiratory distress. * Administer diphenhydramine (Benadryl) 25 mg IV STAT, (unless patient has received as pre-med). May repeat once, if necessary. * Solu-Cortef 250 mg IVP over 30-60 seconds, use 100 mg vials for each dissolution. * Epinephrine (1mg/1 ml) 0.3 mg subcutaneously or IVP now with any signs of respiratory distress. * Check with physician for new additional pre-med orders if patient is re- challenged or re-treated. [x] May remove PICC line when treatment complete, after confirming with Physician. [x] If the patient is admitted to the hospital, the ED, or transferred via [facility] , complete transfer form including medication reconciliation order sheet. Laboratory Tests Weekly Labs: CBC w/diff, Creatinine, LFT's (Hepatic function test) (labs every Saturday - copy to id) Melisa Lama MD Jan 31, 2018 10:43
--- NOTE | 2018-01-31 10:48 | HHI.IDPN ---
Subjective Subjective Remarks Patient is a 42-year-old male, presented to the hospital with worsening low back pain which has been going on for about 4 weeks. He denies any bladder or bladder bowel dysfunction. He has not had any fever chills or sweats. Denies any respiratory complaint. Patient has known active IV drug use. He has a history of L1-L2 Serratia discitis for which he received a course of antibiotic therapy. He had another admission in 2010, and had an MRI again at that time which showed improvement in his findings. When he came to the hospital this time, MRI of the thoracic spine was done, and it is again showing enhancement of L1 and now as well as L2 and L3. He has not been febrile. His sed rate is elevated. Patient had bone biopsy of L2 and C/S came back negative. Patient however has received 2 doses of Vanco and Zosyn prior to the biopsy. He was off Abx only 24 hours when he had biopsy done. He had Hx Serratia discitis about 7 or 8 yeasr ago, treated and had followup MRI about 1 year after Rx which showed improvement. During that time, he denies IVDU. Patient has been using IV drugs. He was on Vanco and Zosyn, Signed out AMA to do some personal things. Came back same day. He is afebrile. HIs BC have been negative. Echo was ok. Infectious Disease consultation requested to continue with his Rx. Notes reviewed No fever Still C/O back pain C/S from biopsy negative Echo ok BC negative Antibiotics Rocephin Current Medications Medications (Trade) Dose Ordered Sig/Rosanna Route Start Time Stop Time Status Last Admin (NS Flush) 2 ml UNSCH PRN IV FLUSH 01/28/18 17:00 (NS Flush) 2 ml BID IV FLUSH 01/28/18 21:00 01/30/18 20:53 (Tylenol) 650 mg Q4H PRN PO 01/28/18 17:00 (Reglan Inj) 5 mg Q6H PRN IV PUSH 01/28/18 17:00 (Lovenox Inj) 40 mg Q24H SQ 01/28/18 18:00 01/30/18 17:15 (Narcan Inj) 0.4 mg UNSCH PRN IV PUSH 01/28/18 17:00 (Katrin-Colace) 1 tab BID PO 01/28/18 21:00 01/29/18 08:36 (Milk Of Magnesia Liq) 30 ml Q12H PRN PO 01/28/18 17:00 (Senokot) 17.2 mg Q12H PRN PO 01/28/18 17:00 (Dulcolax Supp) 10 mg DAILY PRN RECTAL 01/28/18 17:00 (Lactulose Liq) 30 ml DAILY PRN PO 01/28/18 17:00 ([place] 5-325 Mg) 1 tab Q4H PRN PO 01/28/18 17:00 01/31/18 01:19 Ceftriaxone Sodium 2000 mg/ Sodium Chloride 100 ml @ 200 mls/hr Q24H IV 01/29/18 14:00 01/30/18 13:17 Lines PIV no evid of infection Past Medical History L1L2 Serratia discitis Rx in 2009 Hx VSD Allergies: Coded Allergies: No Known Allergies (Verified Allergy, Unknown, 01/28/18) Objective . Vital Signs Date Time Temp Pulse Resp B/P (MAP) Pulse Ox O2 Delivery O2 Flow Rate FiO2 01/31/18 08:28 98.2 92 20 109/61 (77) 98 01/31/18 04:56 98.7 64 18 111/59 (76) 96 01/31/18 03:14 18 01/31/18 00:19 98.1 76 20 134/67 (89) 99 01/30/18 22:29 97 21 01/30/18 20:51 97.8 79 20 133/74 (93) 97 01/30/18 16:00 97.4 59 20 125/60 (81) 98 01/30/18 14:52 97 21 01/30/18 12:00 97.9 51 20 134/65 (88) 97 . Laboratory Tests Test 01/31/18 06:36 White Blood Count 6.6 TH/MM3 Red Blood Count 4.16 MIL/MM3 Hemoglobin 11.8 GM/DL Hematocrit 33.9 % Mean Corpuscular Volume 81.5 FL Mean Corpuscular Hemoglobin 28.4 PG Mean Corpuscular Hemoglobin Concent 34.8 % Red Cell Distribution Width 13.5 % Platelet Count 307 TH/MM3 Mean Platelet Volume 6.9 FL Neutrophils (%) (Auto) 70.0 % Lymphocytes (%) (Auto) 14.3 % Monocytes (%) (Auto) 13.5 % Eosinophils (%) (Auto) 1.7 % Basophils (%) (Auto) 0.5 % Neutrophils # (Auto) 4.6 TH/MM3 Lymphocytes # (Auto) 0.9 TH/MM3 Monocytes # (Auto) 0.9 TH/MM3 Eosinophils # (Auto) 0.1 TH/MM3 Basophils # (Auto) 0.0 TH/MM3 CBC Comment DIFF FINAL Differential Comment Laboratory Tests Test 01/31/18 06:36 Blood Urea Nitrogen 15 MG/DL Creatinine 0.79 MG/DL Random Glucose 83 MG/DL Calcium Level 9.1 MG/DL Sodium Level 134 MEQ/L Potassium Level 4.1 MEQ/L Chloride Level 96 MEQ/L Carbon Dioxide Level 29.7 MEQ/L Anion Gap 8 MEQ/L Estimat Glomerular Filtration Rate 108 ML/MIN Physical Exam GENERAL: Patient is a well-nourished, well-developed male, awake and alert, not in respiratory distress. SKIN: Warm and dry. No generalized rash, no ecchymoses and no evidence of embolic lesions. HEAD: Atraumatic. Normocephalic. No temporal wasting, or tenderness. EYES: [place] conjunctiva. No petechia or hemorrhage. Pupils equal, round and reactive to light. Extraocular movements full and intact. No scleral icterus. No injection or drainage. EARS, NOSE AND THROAT: Nose without bleeding or purulent nasal discharge. No sinus tenderness. Mucous membranes pink and moist. No oral lesions noted. NECK: Trachea midline. Supple and not tender, no meningeal signs CARDIOVASCULAR: Regular rate and rhythm. Has systolic murmur apex. RESPIRATORY: Clear to auscultation. Breath sounds equal bilaterally. No rales , wheezing or rhonchi ABDOMEN: Soft, non-tender, nondistended. Bowel sounds present and normoactive. No guarding. No rebound. No organomegaly. EXTREMITIES: No clubbing, cyanosis, or edema.No joint effusion, has good ROM. No calf tenderness. Well perfused and warm. NEUROLOGICAL: Non-focal PSYCHIATRIC: Normal affect, calm and cooperative. LINE: No evidence of infection Assessment & Plan Remarks IMPRESSION L1-L3 discitis - C/S negative; ?due to prior Abx. ?recurrent Serratia - Hx Serratia discitis 2010 Known IVDU RECOMMENDATION Change Abx to Rocephin - treat as recurrent Serratia discitis/osteomyelitis Labs weekly while on Abx: CBC, creat, LFT Pain control PICC Explained plan to patient Also explained to him that he is responsible for his PICC, and told him of risks and complications if he manipulates his PICC D/W CM - will set up outpatient IV Abx Rx OK to D/C from ID standpoint once arrangements made for his Rx Main issue with him currently is pain control Melisa Lama MD Jan 31, 2018 10:48
[2018-01-31 12:22] VITALS: BP 116/60; PULSE 60; RESP 20; TEMP 97.8; O2SAT 100
[2018-01-31] MEDS ORDERED: SODIUM CHLORIDE 0.9% FLUSH 10 ML FLUSH IV FLUSH PRN (14:45)
[2018-01-31] MEDS: cefTRIAXone INJ 2,000 MG in SODIUM CHLORIDE 0.9% INJ 100 ML IV SCH (15:05)
[2018-01-31] MEDS: SODIUM CHLORIDE 0.9% FLUSH 10 ML FLUSH IV FLUSH SCH (15:06)
--- NOTE | 2018-01-31 17:16 | HHI.DS ---
Discharge Summary Admission Date January 28, 2018 at 16:46 Discharge Date: Jan 31, 2018 Admitting Diagnosis Osteomyelitis, discitis of lumbar spine (1) Tobacco abuse ICD Code: Z72.0 - Tobacco use (2) Osteomyelitis of lumbar spine ICD Code: M46.26 - Osteomyelitis of vertebra, lumbar region Procedures See below Brief History - From Admission 42-year-old male with past medical history of previously treated lumbar spine osteomyelitis dating back 2009, current IVDU presented to the ED for worsening low back pain 4 weeks duration rated over 10 in intensity worse with standing and bending however without any bladder or bowel dysfunction. Patient also denies any febrile episode. 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 Otherwise patient denies any reported GI bleed, chest pain or shortness of breath. Patient left AMA in the morning and returned later today. CBC/BMP: 01/31/18 0636 01/31/18 0636 Significant Findings Laboratory Tests Test 01/29/18 07:24 01/31/18 06:36 Red Blood Count 4.25 MIL/MM3 (4.50-5.90) 4.16 MIL/MM3 (4.50-5.90) Hemoglobin 11.9 GM/DL (13.0-17.0) 11.8 GM/DL (13.0-17.0) Hematocrit 34.5 % (39.0-51.0) 33.9 % (39.0-51.0) Mean Platelet Volume 6.7 FL (7.0-11.0) 6.9 FL (7.0-11.0) Monocytes (%) (Auto) 15.4 % (0.0-8.0) 13.5 % (0.0-8.0) Monocytes # (Auto) 1.0 TH/MM3 (0-0.9) Lymphocytes # (Auto) 0.9 TH/MM3 (1.0-4.8) Sodium Level 134 MEQ/L (136-145) Chloride Level 96 MEQ/L (98-107) PE at Discharge GENERAL: This is a well-nourished, well-developed patient, in no apparent distress. CARDIOVASCULAR: RRR, no gallops, or rubs. RESPIRATORY: Fair air entry bilaterally. No W, R, or R GASTROINTESTINAL: Abdomen soft, non-tender, nondistended. Positive bowel sounds MUSCULOSKELETAL: Extremities without clubbing, cyanosis, or edema. Pedal pulses appreciated NEUROLOGICAL: Awake and alert. Moves all extremity. Normal speech.no focal neurological deficit Hospital Course Osteomyelitis of lumbar spine: Patient left the hospital AMA on 01/28/18 and returned the same day in the evening. Stating he had to go [place] a check. Lumbar spine MRI noted Neurosurgery consulted on the patient. Per Dr. Calderón, not a surgical case and recommends antibiotics. ID reconsulted. Status post vancomycin and Zosyn discontinued. Then patient started on Rocephin. Status post CT-guided aspiration/biopsy. Cultures so far negative. Blood cultures so far negative. Transthoracic echo did not report vegetations. [place] as needed for pain. No objective evidence that he requires IV pain medications. Seems comfortable, ambulating. Tobacco abuse Tobacco counseling cessation provided nicotine patch IVDU Counseling cessation provided 2D echo reports trace tricuspid valve regurgitation. No mention of vegetation. Given blood cultures are negative. Will defer REBECCA for now. DVT prophylaxis: Lovenox On 01/31: Patient cleared by ID to be discharged on Rocephin after getting a PICC line to be followed by infusion center at [place] [id number] encounter performed with the patient on discharge day, as well as physical exam, summary of hospitalization course and postdischarge plan has been D/W the patient in length about importance of being committed to the treatment and avoid any type of manipulation of the PICC line D/W nurse D/W medical case manager. Discharge medications reviewed and printed and signed, post discharge follow up visit with PCP and other specialist as well as Brief hospital course and discharge summary has been placed. Pt Condition on Discharge: Fair Discharge Disposition: Discharge Home Discharge Time: > 30 minutes Discharge Instructions DIET: Follow Instructions for: Heart Healthy Diet Activities you can perform: Weight Bearing as Natalya Follow up Referrals: PCP Follow-up Continued Medications: Naproxen (Naproxen) 500 Mg Tab 500 MG PO BID for 10 Days, TAB 0 Refills Orlando Flores MD Jan 31, 2018 17:16
[2018-02-01] MEDS ORDERED: SODIUM CHLORIDE 0.9% FLUSH 10 ML FLUSH IV FLUSH SCH (09:00)
[2018-02-01] MEDS ORDERED: EPIN1INJ17 SQ (10:24)
[2018-02-01] MEDS ORDERED: SOLU250I IV PUSH (10:24)
[2018-02-01] MEDS ORDERED: CEFTINJ2 IV-CENTRAL (10:24)
== END 2018-01-31 16:30 | disposition home or self-care (01) | DRG 539 ==
LOC: NEPC 14:31 → NEDA 16:46 → N05A 17:42
PROVIDERS: ADMIT Hospitalist; ATTEND Hospitalist
DX: M46.26 Osteomyelitis of vertebra, lumbar region (principal); G06.2 Extradural and subdural abscess, unspecified; D63.8 Anemia in other chronic diseases classified elsewhere; M46.46 Discitis, unspecified, lumbar region; F19.10 Other psychoactive substance abuse, uncomplicated; Z72.0 Tobacco use
CPT/HCPCS: 76937; 80048; 85025; 96374; J0696; J1650; J2543; J3370; J7030; J7050

== ENCOUNTER 2018-09-09 05:21 | Inpatient (IN) ==
[2018-09-09] MEDS ORDERED: Azithromycin Inj 500 MG in Sodium Chlor 0.9% Inj 250 ML IV.SIG ONE (06:05)
[2018-09-09] MEDS ORDERED: Sod Chloride 0.9% Inj 1,000 ML IV.SIG ONE (06:05)
[2018-09-09 06:35] LABS: Baso % (Auto) 0.2 % (0.0-2.0); Hematocrit 32.6 % (39.0-51.0); Hemoglobin 11.4 gm/dL (13.0-17.0); Lymph # (Auto) 0.7 th/mm3 (1.0-4.8); Lymph % (Auto) 7.7 % (9.0-44.0); Mean Corpuscular Hemoglobin 28.9 pg (27.0-34.0); Mean Corpuscular Volume 82.7 fL (80.0-100.0); Mean Platelet Volume 6.9 fL (7.0-11.0); Mono # (Auto) 1.3 th/mm3 (0.0-0.9); Mono % (Auto) 15.8 % (0.0-8.0); Neut # (Auto) 6.5 th/mm3 (1.8-7.7); Neut % (Auto) 76.3 % (16.0-70.0); Platelet Count 230 th/mm3 (150-450); Red Blood Count 3.94 mil/mm3 (4.50-5.90); Red Cell Distribution Width 14.1 % (11.6-17.2); White Blood Count 8.5 th/mm3 (4.0-11.0)
--- NOTE | 2018-09-09 06:40 | XR ---
EXAM DATE: 09/09/2018 6:29 AM EST AGE/SEX: 42 years / Male INDICATIONS: Fever today. CLINICAL DATA: This is the patient's initial encounter. Patient reports that signs and symptoms have been present for 1 day and indicates a pain score of Nonresponsive. MEDICAL/SURGICAL HISTORY: Non-responsive. Non-responsive. COMPARISON: No prior exams available for comparison. FINDINGS: 2 frontal views of the chest demonstrate the lungs to be symmetrically aerated without evidence of ma ss, infiltrate or effusion. The cardiomediastinal contours are unremarkable. Osseous structures are intact. CONCLUSION: The lungs are clear. Electronically signed by: Boo Guadarrama MD Board Certified Radiologist 09/09/2018 6:39 AM EST
[2018-09-09 06:46] LABS: Activated Partial Thrombo Time 35.7 sec (23.4-31.7); INR 1.1 Ratio; Prothrombin Time 10.8 sec (9.8-11.6)
[2018-09-09] MEDS ORDERED: Oseltamivir Phosphate 75 MG Capsule PO ONE (06:47)
[2018-09-09] MEDS ORDERED: MethylPREDNISolone Sod Succinate Inj 125 MG/2 ML Vial IV.PUSH ONE (06:47)
[2018-09-09 06:52] LABS: Alanine Aminotransferase 32 U/L (12-78); Albumin 2.9 g/dL (3.4-5.0); Anion Gap 5 meq/L (5-15); Aspartate Aminotransferase 48 U/L (15-37); Blood Urea Nitrogen 11 mg/dL (7-18); Calcium 7.9 mg/dL (8.5-10.1); Carbon Dioxide 30.6 meq/L (21.0-32.0); Chloride 94 meq/L (98-107); Glomerular Filtration Rate Greater Than 89 mL/min (>89); Glucose,Random 117 mg/dL (74-106); Potassium 3.4 meq/L (3.5-5.1); Sodium 130 meq/L (136-145)
[2018-09-09 06:55] LABS: Alkaline Phosphatase 65 U/L (45-117); Total Protein 7.5 g/dL (6.4-8.2); Troponin I 0.02 ng/mL (0.02-0.05)
[2018-09-09 07:08] LABS: CKMB Percent 0.3 % (0.0-4.0); Creatine Kinase MB 1.6 ng/mL (0.5-3.6)
[2018-09-09] MEDS ORDERED: Acetaminophen 325 MG Tablet PO ONE (07:09)
--- NOTE | 2018-09-09 07:12 | ED ---
HPI General Chief complaint: Headache Stated complaint: Poss Fever Time Seen by Provider: 09/09/18 05:29 Source: patient Limitations: no limitations History of Present Illness HPI narrative: The patient is a 42 year old male who presents to the [facility] emergency department with a history of reportedly feeling unwell for the last 2 days. He reports that he began to have cough, nasal congestion, clear rhinorrhea, dyspnea with exertion, and a frontal headache over his forehead and top of his head. He reports having body aches associated with this. He reports having a tactile fever. The patient reports that he smokes 2 packs of cigarettes per day. He denies ever being diagnosed with COPD in the past. He denies having a primary care physician. The patient reports that his cough is dry in character. On review of systems otherwise, the patient denies having any neck pain, chest pain, abdominal pain, urinary symptoms, or neurologic symptoms. The patient reports that yesterday he did have one episode of vomiting. He denies having any diarrhea. Related Data Home Medications Medication Instructions Recorded Confirmed No Known Home Medications 09/09/18 09/09/18 Allergies Allergy/AdvReac Type Severity Reaction Status Date / Time No Known Allergies Allergy Verified 09/09/18 05:22 Review of Systems ROS: all other systems reviewed are negative [facility] Medical History Medical History Patient denies medical problems (Acute) Surgical History Surgical History No history of previous surgery (Acute) Social History Social History Substance History: No History of Abuse Second Hand Smoke Exposure: Yes Smoking Status: Current every day smoker Tobacco Type: Cigarettes Packs Per Day: 2 Cigarettes Per Day: 40.0 How Often Do You Have a Drink Containing Alcohol: Never Recent Travel in [facility] within the Last 8 Weeks: No Recent Out of Country Travel within the Last 8 Weeks: No Immunization History Tetanus Immunization: Unsure Exam Const General: cooperative, no acute distress and well developed Nutritional Appearance: well nourished Orientation: alert, awake and oriented x3 HENMT Head: normocephalic and atraumatic Nose: no nasal discharge and no epistaxis Face and sinus: sinus tenderness frontal Mouth: moist mucous membranes Throat: uvula midline and other (Posterior oropharynx is mildly erythematous.) Eyes Sclera: normal sclerae Pupils: PERRL Neck Neck: no meningeal signs, trachea midline and no JVD Resp Effort & Inspection: no use of accessory muscles Auscultation: crackles, no rhonchi, wheezes and other (The patient on examination of his lungs has crackles audible in the right lower lung base associated with anterior wheezing. No rhonchi audible. The patient's initial O2 saturation on room air was 87) Cardio Rate: regular rate Rhythm: regular rhythm Heart Sounds: no murmurs GI Inspection: non-distended Palpation: soft, no hepatosplenomegaly, no guarding, not rigid and nontender Auscultation: normal bowel sounds Back/Spine/Pelvis Back: no CVA tenderness Skin General: dry skin (warm) Neuro General: alert, awake, oriented x3 and other (Grossly nonfocal) Speech: speech normal Motor: no movement abnormalities noted Extrem General: normal to inspection (2+ pulses in all 4 extremities), no calf tenderness, no clubbing, no cyanosis and no edema Psych Mood: congruent mood Affect: normal affect Judgment: judgment good Course Initial Documented Vital Signs Temperature 100.5 F H 09/09/18 05:22 Pulse Rate 90 09/09/18 05:22 Respiratory Rate 22 09/09/18 05:22 Blood Pressure 137/63 09/09/18 05:22 Pulse Oximetry 87 L 09/09/18 05:22 Last Documented Vital Signs Temperature 99.5 F 09/09/18 07:19 Pulse Rate 71 09/09/18 07:19 Respiratory Rate 19 09/09/18 07:19 Blood Pressure 116/62 09/09/18 07:19 Pulse Oximetry 97 09/09/18 07:19 Medical Decision Making MDM Narrative Medical decision making narrative: During the course of the patient's emergency department visit, the patient's history, examination, and differential diagnosis were reviewed with the patient. The patient was placed on a computer systems hardware analyst with oximetry and frequent blood pressure monitoring. The patient had IV access obtained and blood work sent for analysis. A diagnostic evaluation was started regarding the patient's hypoxemia on room air associated with fever and upper respiratory symptoms. The patient was initially provided normal saline 1 L IV fluid bolus, Rocephin 1 g IV, Zithromax 500 IV. The patient was provided DuoNeb's x2, Solu-Medrol 125 mg IV, Tylenol 650 p.o. x1 for fever. The patient's diagnostic studies are remarkable for a white count of 8.5, hemoglobin 11.4, platelets 230 with a neutrophil predominance of 76.3, monocytes 15.8, PT 10.8, PTT 35.7, chemistries remarkable for sodium of 130, potassium 3.4, chloride 94, glucose 117, calcium 7.9, AST 48, albumin 2.9. Lactic acid is within normal limits at 0.7, chest x-ray was read by the reading radiologist as showing no acute pulmonary disease. Influenza testing was positive. The patient will be given Tamiflu 75 mg p.o. x1. As the patient is hypoxemic on room air, the patient will be admitted to the hospital for continued treatment of a suspected COPD exacerbation in association with influenza. The patient's case including history, pertinent physical examination findings, and laboratory studies were discussed with Dr. Titus. It was agreed that the patient would be admitted to the hospitalist service. The patient's results were discussed with the patient, including the plan of care. I explained that further testing and/ or monitoring is indicated based on the patient's history, examination, and/ or laboratory findings. Therefore, I recommended admission for additional evaluation. The patient expressed understanding and was agreeable with this plan. The patient was admitted to the hospital in guarded condition and sent to a bed under the care of the [facility] service. Medical Screen Exam Complete: Yes Emergency Medical Condition: Yes Differential Diagnosis Differential Diagnosis: Pneumonia, versus congestive heart failure, versus COPD exacerbation, versus pneumothorax Medical Records Medical records reviewed: Yes I reviewed the patient's medical records. Lab Data Lab results reviewed: Yes I reviewed the patient's lab results. Result diagrams: 09/09/18 06:10 09/09/18 06:10 Lab Results 09/09/18 09/09/18 09/09/18 Range/Units 06:10 06:10 06:10 WBC (4.0-11.0) th/mm3 RBC (4.50-5.90) mil/mm3 Hgb (13.0-17.0) gm/dL Hct (39.0-51.0) % MCV (80.0-100.0) fL MCH (27.0-34.0) pg MCHC (32.0-36.0) % RDW (11.6-17.2) % Plt Count (150-450) th/mm3 MPV (7.0-11.0) fL Neut % (Auto) (16.0-70.0) % Lymph % (Auto) (9.0-44.0) % [place] % (Auto) (0.0-8.0) % Eos % (Auto) (0.0-4.0) % Baso % (Auto) (0.0-2.0) % Neut # (Auto) (1.8-7.7) th/mm3 Lymph # (Auto) (1.0-4.8) th/mm3 [place] # (Auto) (0.0-0.9) th/mm3 Eos # (Auto) (0.0-0.4) th/mm3 Baso # (Auto) (0.0-0.2) th/mm3 WBC Differential Differential Comment PT 10.8 (9.8-11.6) sec INR 1.1 Ratio APTT 35.7 H (23.4-31.7) sec Sodium (136-145) meq/L Potassium (3.5-5.1) meq/L Chloride (98-107) meq/L Carbon Dioxide (21.0-32.0) meq/L Anion Gap (5-15) meq/L BUN (7-18) mg/dL Creatinine (0.60-1.30) mg/dL Estimated GFR (>89) mL/min Random Glucose (74-106) mg/dL Lactic Acid (0.4-2.0) mmol/L Calcium (8.5-10.1) mg/dL Magnesium (1.5-2.5) mg/dL Total Bilirubin (0.2-1.0) mg/dL AST (15-37) U/L ALT (12-78) U/L Alkaline Phosphatase (45-117) U/L Total Creatine Kinase 515 H (39-308) U/L CK-MB (CK-2) 1.6 (0.5-3.6) ng/mL CK-MB (CK-2) % 0.3 (0.0-4.0) % Troponin I 0.02 (0.02-0.05) ng/mL B-Natriuretic Peptide 77 (0-100) pg/mL Total Protein (6.4-8.2) g/dL Albumin (3.4-5.0) g/dL Lipase 126 (73-393) U/L 09/09/18 09/09/18 09/09/18 Range/Units 06:10 06:10 06:10 WBC 8.5 (4.0-11.0) th/mm3 RBC 3.94 L (4.50-5.90) mil/mm3 Hgb 11.4 L (13.0-17.0) gm/dL Hct 32.6 L (39.0-51.0) % MCV 82.7 (80.0-100.0) fL MCH 28.9 (27.0-34.0) pg MCHC 35.0 (32.0-36.0) % RDW 14.1 (11.6-17.2) % Plt Count 230 (150-450) th/mm3 MPV 6.9 L (7.0-11.0) fL Neut % (Auto) 76.3 H (16.0-70.0) % Lymph % (Auto) 7.7 L (9.0-44.0) % [place] % (Auto) 15.8 H (0.0-8.0) % Eos % (Auto) 0.0 (0.0-4.0) % Baso % (Auto) 0.2 (0.0-2.0) % Neut # (Auto) 6.5 (1.8-7.7) th/mm3 Lymph # (Auto) 0.7 L (1.0-4.8) th/mm3 [place] # (Auto) 1.3 H (0.0-0.9) th/mm3 Eos # (Auto) 0.0 (0.0-0.4) th/mm3 Baso # (Auto) 0.0 (0.0-0.2) th/mm3 WBC Differential . Differential Comment Auto diff final PT (9.8-11.6) sec INR Ratio APTT (23.4-31.7) sec Sodium 130 L (136-145) meq/L Potassium 3.4 L (3.5-5.1) meq/L Chloride 94 L (98-107) meq/L Carbon Dioxide 30.6 (21.0-32.0) meq/L Anion Gap 5 (5-15) meq/L BUN 11 (7-18) mg/dL Creatinine 0.80 (0.60-1.30) mg/dL Estimated GFR Greater than 89 (>89) mL/min Random Glucose 117 H (74-106) mg/dL Lactic Acid 0.7 (0.4-2.0) mmol/L Calcium 7.9 L (8.5-10.1) mg/dL Magnesium 2.0 (1.5-2.5) mg/dL Total Bilirubin 0.8 (0.2-1.0) mg/dL AST 48 H (15-37) U/L ALT 32 (12-78) U/L Alkaline Phosphatase 65 (45-117) U/L Total Creatine Kinase (39-308) U/L CK-MB (CK-2) (0.5-3.6) ng/mL CK-MB (CK-2) % (0.0-4.0) % Troponin I (0.02-0.05) ng/mL B-Natriuretic Peptide (0-100) pg/mL Total Protein 7.5 (6.4-8.2) g/dL Albumin 2.9 L (3.4-5.0) g/dL Lipase (73-393) U/L Imaging Data Radiologist's impression: Chest X-Ray 09/09/18 06:06 CONCLUSION: The lungs are clear. Discharge Plan Discharge Disposition Patient Disposition: ED Admit(ED Internal Use Only) Discharge Order Discharge Orders: ED Use Only Admit Order (Routine); Ordered 09/09/18 Ordered By: Yary Webber Discharge Details Diagnosis: Hypoxemia, Influenza A, Wheezing Physicians Team ED Provider: Yary Webber Primary Care Provider: Primary Care Debbie Grant Attending Provider: Govind Titus Status ED Status: Admitted Patient
[2018-09-09] MEDS ORDERED: Acetaminophen 325 MG Tablet PO PRN (08:52)
[2018-09-09] MEDS: guaiFENesin 600 MG ER Tablet PO SCH ×2 (10:24→21:45)
[2018-09-09] MEDS: Sod Chloride 0.9% Inj 1,000 ML IV.CONT SCH ×2 (10:25→22:40)
--- NOTE | 2018-09-09 10:27 | P.HP ---
History of Present Illness Primary Care Physician: No Primary Care Physician Chief Complaint: Shortness of breath History of Present Illness: 42-year-old man with history of 2 pack/day tobacco use presented to the ED for worsening shortness of breath times 2 days associated with nonproductive cough, nasal congestion and clear rhinorrhea as well as frontal headache. Patient reports subjective fever. Denies any GI bleed. While in the ED, patient was found to be severely hypoxemic. Influenza A was positive. Inpatient Certification: I certify that the inpatient services were ordered in accordance with Medicare regulations governing the order. This includes certification that hospital inpatient services are reasonable and necessary and in the case of services not specified as inpatient-only under 42 CFR 419.22(n), that they are appropriately provided as inpatient services in accordance to with the 2-midnight benchmark under 43 CFR 412.3(e) Estimated Total Length of Stay (Days): 2 Plans for Post Hospital Care: Not yet determined Review of Systems All other systems reviewed negative except as stated in HPI PMFSH - History History Provided By: Patient - Medical History Medical History: Medical History (Last Reviewed 09/09/18 @ 07:19 by Yary Webber MD) Patient denies medical problems - Surgical History Surgical History: Surgical History (Last Reviewed 09/09/18 @ 07:19 by Yary Webber MD) No history of previous surgery - Family History Family History: Family History (Last Updated 09/09/18 @ 10:27 by Govind Titus MD) Other No cardiac disease - Tobacco History Second Hand Smoke Exposure: Yes Tobacco Use In Past 30 Days: Yes Smoking Status: Current every day smoker Tobacco Type: Cigarettes Packs Per Day: 2 Cigarettes Per Day: 40.0 - Alcohol History How Often Do You Have a Drink Containing Alcohol: Never - Substance Use History Substance History: No History of Abuse - Travel History Recent Travel in the [place] Within the Last 8 Weeks: No Recent Travel Out of the Country Within the Last 8 Weeks: No - Immunization History Tetanus Immunization: Unsure Medications and Allergies Active Medications: Active Medications Acetaminophen (Tylenol) 650 mg PO Q4H PRN PRN Reason: Temp > 100.4 Al Hydroxide/Mg Hydroxide (Milk Of Magnesia Liq) 30 ml PO Q12H PRN PRN Reason: Mild Constipation Albuterol (Duoneb Neb (Prn)) 1 ampul NEB Q2HR NEB PRN PRN Reason: SHORTNESS OF BREATH Albuterol (Duoneb Neb (Bruno)) 1 ampul NEB Q6HR WHILE AWAKE NEB [facility] Budesonide/Formoterol Fumarate (Symbicort 160/4.5 Mcg Inh) 2 puff INH BID [facility] Guaifenesin (Mucinex Er) 600 mg PO BID [facility] Azithromycin 500 mg/ Sodium (Chloride) 250 mls @ 250 mls/hr IV.SIG Q24H [facility] Ceftriaxone Sodium 1,000 mg/ (Sodium Chloride) 100 mls @ 200 mls/hr IV.SIG Q24H [facility] Sodium Chloride (Ns Inj) 1,000 mls @ 70 mls/hr IV.CONT .[id number] [facility] Methylprednisolone Sodium Succinate (Solumedrol Inj) 40 mg IV.PUSH Q8HR [facility] Nicotine (Habitrol 21 Mg Patch.24 Hr) 1 patch T-DERMAL DAILY [facility] Ondansetron HCl (Zofran Inj) 4 mg IV.PUSH Q6H PRN PRN Reason: NAUSEA OR VOMITING Oseltamivir Phosphate (Tamiflu) 75 mg PO BID [facility] Patch Removal (Remove Old Patch) 1 each T-DERMAL DAILY [facility] Sodium Chloride (Ns Flush) 2 ml IV.FLUSH BID [facility] Sodium Chloride (Ns Flush) 2 ml IV.FLUSH UNSCH PRN PRN Reason: FLUSH AFTER USING IV ACCESS Tiotropium [place] (Spiriva 18 Mcg Inh) 18 mcg INH DAILY [facility] Allergies Allergy/AdvReac Type Severity Reaction Status Date / Time No Known Allergies Allergy Verified 09/09/18 05:22 Home Medications Medication Instructions Recorded Confirmed Type No Known Home Medications 09/09/18 09/09/18 History Exam Vital signs: Vital Signs 09/09/18 05:22 09/09/18 05:42 09/09/18 06:06 Temperature 100.5 F H 100.7 F H Pulse Rate 90 82 87 Respiratory Rate 22 18 Blood Pressure 137/63 140/67 Pulse Oximetry 87 L 95 95 09/09/18 07:00 09/09/18 07:19 Temperature 99.5 F Pulse Rate 60 71 Respiratory Rate 21 19 Blood Pressure 116/62 Pulse Oximetry 97 Intake & Output 09/08/18 09/09/18 09/09/18 18:59 06:59 18:59 Intake Total 1350 / 1350 Balance 1350 / 1350 Weight 90.718 kg Intake: IV 1350 / 1350 Azithromycin Inj 500 MG In NS 250 / 250 Inj 250 ML @ 250 mls/hr IV.SIG ONCE ONE Rx#:[id number] NS Inj 1,000 ML @ Wide Open IV. 1000 / 1000 SIG BOLUS ONE Rx#:[id number] Rocephin Inj 1,000 MG In NS Inj 100 / 100 100 ML @ 200 mls/hr IV.SIG ONCE ONE Rx#:[id number] Narrative: GENERAL: NAD SKIN: Warm and dry. HEAD: Atraumatic. Normocephalic. EYES: Pupils equal and round. No scleral icterus. No injection or drainage. ENT: No nasal bleeding or discharge. Mucous membranes pink and moist. NECK: Trachea midline. No JVD. CARDIOVASCULAR: Regular rate and rhythm. RESPIRATORY: No accessory muscle use. Clear to auscultation. Breath sounds decrease bilaterally.Crackles at the base RL; expiratory wheezing GASTROINTESTINAL: Abdomen soft, non-tender, nondistended. Hepatic and splenic margins not palpable. MUSCULOSKELETAL: Extremities without clubbing, cyanosis, or edema. No obvious deformities. NEUROLOGICAL: Awake and alert. No obvious cranial nerve deficits. Motor grossly within normal limits. Five out of 5 muscle strength in the arms and legs. Normal speech. PSYCHIATRIC: Appropriate mood and affect; insight and judgment normal. Results - Labs CBC & Chem 7: 09/09/18 06:10 09/09/18 06:10 Labs: Laboratory Results - last 24 hr 09/09/18 09/09/18 09/09/18 06:10 06:10 06:10 WBC RBC Hgb Hct MCV MCH MCHC RDW Plt Count MPV Neut % (Auto) Lymph % (Auto) Dukes % (Auto) Eos % (Auto) Baso % (Auto) Neut # (Auto) Lymph # (Auto) Dukes # (Auto) Eos # (Auto) Baso # (Auto) WBC Differential Differential Comment PT 10.8 INR 1.1 APTT 35.7 H Sodium Potassium Chloride Carbon Dioxide Anion Gap BUN Creatinine Estimated GFR Random Glucose Lactic Acid Calcium Magnesium Total Bilirubin AST ALT Alkaline Phosphatase Total Creatine Kinase 515 H CK-MB (CK-2) 1.6 CK-MB (CK-2) % 0.3 Troponin I 0.02 B-Natriuretic Peptide 77 Total Protein Albumin Lipase 126 09/09/18 09/09/18 09/09/18 06:10 06:10 06:10 WBC 8.5 RBC 3.94 L Hgb 11.4 L Hct 32.6 L MCV 82.7 MCH 28.9 MCHC 35.0 RDW 14.1 Plt Count 230 MPV 6.9 L Neut % (Auto) 76.3 H Lymph % (Auto) 7.7 L Dukes % (Auto) 15.8 H Eos % (Auto) 0.0 Baso % (Auto) 0.2 Neut # (Auto) 6.5 Lymph # (Auto) 0.7 L Dukes # (Auto) 1.3 H Eos # (Auto) 0.0 Baso # (Auto) 0.0 WBC Differential . Differential Comment Auto diff final PT INR APTT Sodium 130 L Potassium 3.4 L Chloride 94 L Carbon Dioxide 30.6 Anion Gap 5 BUN 11 Creatinine 0.80 Estimated GFR Greater than 89 Random Glucose 117 H Lactic Acid 0.7 Calcium 7.9 L Magnesium 2.0 Total Bilirubin 0.8 AST 48 H ALT 32 Alkaline Phosphatase 65 Total Creatine Kinase CK-MB (CK-2) CK-MB (CK-2) % Troponin I B-Natriuretic Peptide Total Protein 7.5 Albumin 2.9 L Lipase - Imaging Impressions Chest X-Ray 09/09/18 06:06 CONCLUSION: The lungs are clear. Caprini VTE Risk Assessment Caprini VTE Risk Assessment: No/Low Risk (score <= 1) Caprini Risk Assessment Model: Point Value = 1 Point Value = 2 Point Value = 3 Point Value = 5 Age 41-60 Minor surgery BMI > 25 kg/m2 Swollen legs Varicose veins or History of unexplained or recurrent spontaneous Oral contraceptives or hormone replacement Sepsis (< 1 month) Serious lung disease, including pneumonia (< 1 month) Abnormal pulmonary function Acute myocardial infarction Congestive heart failure (< 1 month) History of inflammatory bowel disease Medical patient at bed rest Age 61-74 Arthroscopic surgery Major open surgery (> 45 min) Laparoscopic surgery (> 45 min) Malignancy Confined to bed (> 72 hours) Immobilizing plaster cast Central venous access Age >= 75 History of VTE Family history of VTE Factor V Leiden Prothrombin [id number] Lupus anticoagulant Anticardiolipin antibodies Elevated serum homocysteine Heparin-induced thrombocytopenia Other congenital or acquired thrombophilia Stroke (< 1 month) Elective arthroplasty Hip, pelvis, or leg fracture Acute spinal cord injury (< 1 month) Prophylaxis Regimen: Total Risk Factor Score Risk Level Prophylaxis Regimen 0-1 Low Early ambulation 2 Moderate Order ONE of the following: *Sequential Compression Device (SCD) *Heparin 5000 units SQ BID 3-4 Higher Order ONE of the following medications: *Heparin 5000 units SQ TID *Enoxaparin/Lovenox 40 mg SQ daily (WT < 150 kg, CrCl > 30 mL/min) *Enoxaparin/Lovenox 30 mg SQ daily (WT < 150 kg, CrCl > 10-29 mL/min) *Enoxaparin/Lovenox 30 mg SQ BID (WT < 150 kg, CrCl > 30 mL/min) AND/OR *Sequential Compression Device (SCD) 5 or more Highest Order ONE of the following medications: *Heparin 5000 units SQ TID (Preferred with Epidurals) *Enoxaparin/Lovenox 40 mg SQ daily (WT < 150 kg, CrCl > 30 mL/min) *Enoxaparin/Lovenox 30 mg SQ daily (WT < 150 kg, CrCl > 10-29 mL/min) *Enoxaparin/Lovenox 30 mg SQ BID (WT < 150 kg, CrCl > 30 mL/min) AND *Sequential Compression Device (SCD) Assessment and Plan - Plan 42-year-old man with COPD exacerbation with acute respiratory hypoxic failure Status post Solu-Medrol 125 mg IV x1 in ED Start Solu-Medrol 40 mg IV q. 8-hour, Spiriva, Symbicort, Mucinex, DuoNeb scheduled and as needed Currently on IV antibiotic for superimposed pneumonia Maintain oxygen saturation above 92% Check sputum culture Influenza A positive Continue with Tamiflu 75 mg p.o. twice daily times 5 days total Continue with gentle IV fluid hydration Tobacco abuse Tobacco counseling cessation provided Nicotine patch Hypokalemia Replace electrolytes and monitor Mild hyponatremia Continue with gentle IV fluid resuscitation DVT prophylaxis: Bilateral SCDs
[2018-09-09 10:43] LABS: Bilirubin,Urine Negative (Negative); Clarity,Urine Clear (Clear); Color,Urine Straw (Yellw/Straw); Glucose,Urine (UA) Negative (Negative); Leukocyte Esterase,Urine Negative (Negative); Nitrite,Urine Negative (Negative); Specific Gravity,Urine 1.002 (1.002-1.035)
[2018-09-09] MEDS: Tiotropium Bromide 18 MCG/ACT Inhaler INH SCH (12:41)
[2018-09-09] MEDS: Budesonide-Formoterol 160/4.5 MCG 6 GM Inhaler INH SCH ×2 (12:42→22:38)
[2018-09-09] MEDS: MethylPREDNISolone Sod Succinate Inj 40 MG/ML Vial IV.PUSH SCH ×2 (14:55→21:45)
[2018-09-09] MEDS: Oseltamivir Phosphate 75 MG Capsule PO SCH (22:38)
[2018-09-09] MEDS ORDERED: Ibuprofen 400 MG Tablet PO ONE (22:57)
[2018-09-10] MEDS: Sod Chloride 0.9% Inj 1,000 ML IV.CONT SCH (05:53)
[2018-09-10] MEDS: MethylPREDNISolone Sod Succinate Inj 40 MG/ML Vial IV.PUSH SCH (05:53)
[2018-09-10] MEDS ORDERED: Azithromycin Inj 500 MG in Sodium Chlor 0.9% Inj 250 ML IV.SIG SCH (08:00)
[2018-09-10 08:09] LABS: Hemoglobin 12.2 gm/dL (13.0-17.0); Lymph # (Auto) 0.5 th/mm3 (1.0-4.8); Lymph % (Auto) 5.3 % (9.0-44.0); Mean Corpuscular HGB Conc 35.7 % (32.0-36.0); Mean Corpuscular Hemoglobin 29.3 pg (27.0-34.0); Mean Platelet Volume 7.4 fL (7.0-11.0); Mono # (Auto) 0.4 th/mm3 (0.0-0.9); Mono % (Auto) 4.9 % (0.0-8.0); Neut # (Auto) 7.6 th/mm3 (1.8-7.7); Neut % (Auto) 89.8 % (16.0-70.0); Platelet Count 212 th/mm3 (150-450); Red Blood Count 4.15 mil/mm3 (4.50-5.90); Red Cell Distribution Width 14.5 % (11.6-17.2); White Blood Count 8.5 th/mm3 (4.0-11.0)
[2018-09-10] MEDS: Oseltamivir Phosphate 75 MG Capsule PO SCH (08:20)
[2018-09-10] MEDS: guaiFENesin 600 MG ER Tablet PO SCH (08:20)
[2018-09-10] MEDS: Budesonide-Formoterol 160/4.5 MCG 6 GM Inhaler INH SCH (08:21)
[2018-09-10 08:26] VITALS: PULSE 50; RESP 16; O2SAT 93
[2018-09-10 08:48] LABS: Alanine Aminotransferase 28 U/L (12-78); Albumin 2.7 g/dL (3.4-5.0); Alkaline Phosphatase 63 U/L (45-117); Anion Gap 9 meq/L (5-15); Aspartate Aminotransferase 51 U/L (15-37); Blood Urea Nitrogen 14 mg/dL (7-18); Calcium 8.6 mg/dL (8.5-10.1); Carbon Dioxide 26.4 meq/L (21.0-32.0); Chloride 105 meq/L (98-107); Glomerular Filtration Rate Greater Than 89 mL/min (>89); Glucose,Random 134 mg/dL (74-106); Potassium 3.2 meq/L (3.5-5.1); Sodium 140 meq/L (136-145); Total Protein 7.5 g/dL (6.4-8.2)
[2018-09-10 09:30] VITALS: BP 142/79; TEMP 97.8
[2018-09-10] MEDS ORDERED: KCL 20 mEq/NACL 0.45% Inj 1,000 ML IV.CONT SCH (10:00)
--- NOTE | 2018-09-10 10:03 | P.PNIM ---
Subjective Interval history: Says his breathing is better and he would like to go. Denies any chest pain. He does report abdominal wall pain with coughing and is requesting narcotics for this. Physical Exam Vital signs: Vital Signs 09/09/18 10:49 09/09/18 12:00 09/09/18 12:11 Temperature 97.2 F L 97.8 F Pulse Rate 53 L 50 L Respiratory Rate 20 18 Blood Pressure 106/59 L 119/72 Pulse Oximetry 96 94 L 09/09/18 16:00 09/09/18 20:00 09/09/18 20:49 Temperature 97.5 F L 97.7 F Pulse Rate 54 L 68 57 L Respiratory Rate 18 18 16 Blood Pressure 122/80 131/80 Pulse Oximetry 94 L 94 L 93 L 09/10/18 00:00 09/10/18 04:00 09/10/18 08:00 Temperature 97 F L 97.9 F 97.8 F Pulse Rate 64 49 L 56 L Respiratory Rate 18 18 Blood Pressure 145/91 H 131/78 142/79 H Pulse Oximetry 92 L 92 L 96 09/10/18 08:25 Temperature Pulse Rate 50 L Respiratory Rate 16 Blood Pressure Pulse Oximetry 93 L Intake & Output 09/09/18 09/10/18 09/10/18 18:59 06:59 18:59 Intake Total 1350 / 1350 200 / 200 Output Total 1100 / 1100 Balance 1350 / 1350 -900 / -900 Weight 95.7 kg Intake: IV 1350 / 1350 200 / 200 NS Inj 1,000 ML @ 70 mls/hr IV. 100 / 100 CONT .[id number] [facility] Rx#:[id number] Azithromycin Inj 500 MG In NS 250 / 250 Inj 250 ML @ 250 mls/hr IV.SIG ONCE ONE Rx#:[id number] NS Inj 1,000 ML @ Wide Open IV. 1000 / 1000 SIG BOLUS ONE Rx#:[id number] Rocephin Inj 1,000 MG In NS Inj 100 / 100 100 / 100 100 ML @ 200 mls/hr IV.SIG Q24H [facility] Rx#:[id number] Output: Urine 1100 / 1100 Other: # Bowel Movements 0 Narrative: GENERAL: Lying in bed. Appears comfortable. SKIN: Warm and dry. HEAD: Normocephalic. EYES: No scleral icterus. No injection or drainage. NECK: Supple, trachea midline. No JVD. CARDIOVASCULAR: Regular rate and rhythm without murmurs, gallops, or rubs. RESPIRATORY: Breath sounds equal bilaterally. No accessory muscle use. GASTROINTESTINAL: Abdomen soft, non-tender, nondistended. MUSCULOSKELETAL: No cyanosis, or edema. BACK: Nontender without obvious deformity. No CVA tenderness. Results - Labs CBC & Chem 7: 09/10/18 07:33 09/10/18 07:33 Laboratory Results - last 24 hr 09/09/18 09/10/18 09/10/18 10:30 07:33 07:33 WBC 8.5 RBC 4.15 L Hgb 12.2 L Hct 34.0 L MCV 82.0 MCH 29.3 MCHC 35.7 RDW 14.5 Plt Count 212 MPV 7.4 Neut % (Auto) 89.8 H Lymph % (Auto) 5.3 L [place] % (Auto) 4.9 Eos % (Auto) 0.0 Baso % (Auto) 0.0 Neut # (Auto) 7.6 Lymph # (Auto) 0.5 L [place] # (Auto) 0.4 Eos # (Auto) 0.0 Baso # (Auto) 0.0 WBC Differential . Differential Comment Auto diff final Sodium 140 D Potassium 3.2 L Chloride 105 D Carbon Dioxide 26.4 Anion Gap 9 BUN 14 Creatinine 0.61 Estimated GFR Greater than 89 Random Glucose 134 H Calcium 8.6 Total Bilirubin 0.4 AST 51 H ALT 28 Alkaline Phosphatase 63 Total Protein 7.5 Albumin 2.7 L Urine Color Straw Urine Clarity Clear Urine pH 6.0 Ur Specific [place] 1.002 Urine Protein Negative Urine Glucose (UA) Negative Urine Ketones Negative Urine Occult Blood Small H Urine Nitrate Negative Urine Bilirubin Negative Urine Urobilinogen Less than 2 Ur Leukocyte Esterase Negative Micro UA Comment Culture not ind Ur Microscopic Review Not Reportable Urine Culture Comments Culture not ind Microbiology 09/09/18 06:10 Nasal Wash Influenza Types A,B Antigen - Final Positive for Flu A Antigen Assessment and Plan - Plan 42-year-old man with COPD exacerbation with acute respiratory hypoxic failure Status post Solu-Medrol 125 mg IV x1 in ED Start Solu-Medrol 40 mg IV q. 8-hour, Spiriva, Symbicort, Mucinex, DuoNeb scheduled and as needed Currently on IV antibiotic for superimposed pneumonia Maintain oxygen saturation above 92% -No need for sputum culture. Patient is flu a positive. Will discharge with prednisone taper, Singulair, Inderal. Follow with primary care. Influenza A positive Continue with Tamiflu 75 mg p.o. twice daily times 5 days total Continue with gentle IV fluid hydration = Discussed with patient. He will need to stay hydrated with Gatorade. Close follow-up with primary care as outpatient. Discharge home with Tamiflu. Tobacco abuse Tobacco counseling cessation provided Nicotine patch = Cessation counseling provided. Hypokalemia Replace electrolytes and monitor -Potassium 3.2. Replace. Mild hyponatremia Continue with gentle IV fluid resuscitation = Resolved. Advised aggressive p.o. hydration with water/Gatorade. Patient conveys understanding. Follow up primary care. DVT prophylaxis: Bilateral SCDs Discussed Condition With: Patient, nurse Discharge Planning: Discharge home in good condition. Activity ad thony. Diet regular. Please see discharge medication reconciliation for medication list. Follow-up with primary care as outpatient.
[2018-09-10] MEDS: Tiotropium Bromide 18 MCG/ACT Inhaler INH SCH (10:12)
== END 2018-09-10 10:50 | disposition home or self-care (01) | DRG 193 ==
LOC: NEPC 05:21 → NEDA 07:40 → N04 12:00
PROVIDERS: ADMIT Internal Medicine; ATTEND Internal Medicine
CPT/HCPCS: 71010; 71045; 80053; 81001; 82550; 82552; 83520; 83605; 83690; 83735; 83880; 84484; 85025; 85610; 85730; 87040; 87275; 87276; 87804; 90765; 90767; 90775; 94640; 94664; 94665; 96365; 96367; 96375; 99285; J0456; J0696; J2920; J2930; J7030; J7050